=== PATIENT | female | born 1945 | race Caucasian/White ===

== ENCOUNTER 2022-06-13 23:19 | Observation (INO) | payer MEDICARE, SELFPAY ==
[2022-06-13 23:24] VITALS: BMI 41.9
--- NOTE | 2022-06-13 23:26 | PC.NURSE ---
PT ARRIVED TO FLOOR VIA STRETCHER @ [id number]
[2022-06-14] VITALS (7 sets, daily range): BP systolic 114–186; BP diastolic 67–95; PULSE 60–90; RESP 16–18; TEMP 36.6–37; O2SAT 95–99
[2022-06-14 01:26] LABS: Coronavirus 19, PCR Not Detected (NotDetected); Influenza A, PCR Not Detected (NotDetected); Influenza B, PCR Not Detected (NotDetected)
--- NOTE | 2022-06-14 05:38 | PC.NURSE ---
PT WAS A DIRECT ADMIT FROM [facility] FOR NSTEMI/SYNCOPAL EPISODE. PT IS ALERT AND ORIENTED X 4. MONITORING PT VIA TELE - NSR W/ BBB. PT HAS HAD NO COMPLAINTS SINCE ARRIVAL. PT HAS BEEN RESTING WELL. PT HAS BEEN NPO SINCE MIDNIGHT IN CASE OF CONSULT. CALL LIGHT IN REACH.
[2022-06-14 07:59] LABS: Basophils # 0.1 K/mm3 (0-0.2); Basophils % 1.1 % (0.1-2.0); Eosinophils # 0.1 K/mm3 (0.0-0.4); Eosinophils % 2.2 % (0.1-12.0); Lymphocytes # 1.6 K/mm3 (0.7-4.5); Lymphocytes % 31.7 % (10-50); Mean Corpuscular HGB Conc 32.5 g/dL (31.8-35.4); Mean Corpuscular Hemoglobin 32.7 pg (27.0-31.2); Mean Corpuscular Volume 100.8 fl (81-99); Mean Platelet Volume 7.6 fl (7.4-10.4); Monocytes # 0.3 K/mm3 (0.1-1.0); Monocytes % 6.7 % (1.7-9.3); Neutrophils # 2.9 K/mm3 (1.8-7.8); Neutrophils % 58.4 % (37.0-80.0); Platelet Count 186 K/mm3 (142-424); Red Blood Count 3.97 M/mm3 (4.20-5.40); Red Cell Distribution Width 13.2 % (11.5-17.5)
[2022-06-14 08:03] LABS: Anion Gap 9.8 mEq/L (5-15); Blood Urea Nitrogen 10 mg/dl (7-17); Carbon Dioxide 25 mmol/L (22.0-30.0); Chloride 105 mmol/L (98-107); Creatinine Clearance Estimated 42 mL/min (50-200); Potassium 3.8 mmoL/L (3.5-5.1); Sodium 136 mmol/L (136-145)
[2022-06-14 08:04] LABS: Calcium 9.7 mg/dl (8.4-10.2); Chol/HDL Ratio 3.8 (1-3.5); Cholesterol 210 mg/dl (140-200); Estimated Glomerular Filt Rate 69 ml/min (>60); GFR (African American) 84 ML/MIN (>60); Glucose 107 mg/dl (74-100); HDL Cholesterol 56 mg/dl (40-60); Magnesium 1.8 mg/dl (1.6-2.3); Triglycerides 110 mg/dl (30-150); VLDL Cholesterol 22 mg/dL (0-40)
--- NOTE | 2022-06-14 08:40 | P.CONPHA_ITS ---
[facility] Pharmacy VTE Monitoring - Patient Demographics Admission date: 06/14/22 Report Date: 06/14/22 Time: 08:40 Allergies/Adverse Reactions: Patient Allergies ciprofloxacin Allergy (Verified 06/14/22 00:37) Height: 1.65 m Weight: 114.39 kg - VTE Risk Labs: VTE Related Lab Results Hgb 13.0 g/dL (12.2-16.2) 06/14/22 07:28 Hct 40.0 % (37.0-47.0) 06/14/22 07:28 Plt Count 186 K/mm3 (142-424) 06/14/22 07:28 BUN 10 mg/dl (7-17) 06/14/22 07:28 Creatinine 0.80 mg/dl (0.52-1.04) 06/14/22 07:28 Estimated Creat Clear 42 mL/min (50-200) 06/14/22 07:28 Was VTE Risk Assessment Performed: Yes VTE Score: 7 VTE Risk Level: Moderate Risk Clinical Trial Participant: No - Prophylaxis VTE Prophylaxis Ordered?: Yes Types of VTE Prophylaxis: TEDS Knee High
--- NOTE | 2022-06-14 08:43 | HMH.PHAINT ---
home medication list verified using list from outpatient pharmacy
--- NOTE | 2022-06-14 09:43 | HMH.HP ---
*Admission Date: 06/14/22 *Chief complaint: syncope *History of present illness: this patient had acute syncopal episode and was seen at [facility] and noted to have elevated card enz -and was transferred to [facility] for eval and treatment -pt record at [facility] ed was reviewed - pt reports sudden syncopal episode with diaphoresis and no def chest pain or recent illness but has hx of htn and ht dis and noted to have nonstemi and was transfered to [facility] for eval and treatment - [facility] History I have reviewed the patient's past medical history: Yes Medical History: Reports:: Coronary Artery Disease, Hypertension Denies:: Cancer, Diabetes Mellitus Type 1, Diabetes Mellitus Type 2, MRSA *Have you ever received a pneumonia vaccine?: No *Have you received a flu vaccine this season?: No Other Medical History: Reports: Anemia, Cataracts Laterality Cases: Bilateral: Cataract Other Surgeries: Yes: Hysterectomy-Total Amputation: No Fractures: No - *Social History Last grade of school completed: Advanced degree Smoking Status: Former smoker Alcohol Intake: never *Occupational Status:: retired Household Members: children *Travel in the last 8 weeks: None Family Hx:: Cancer, Hypertension, Stroke Review of Systems - Review of Systems Review of systems:: pertinent systems reviewed and negative unless documented below - Constitutional Denies fever(s) - Eyes Denies change in vision - ENT Denies sore throat - *Cardiovascular Reports other (syncope), Denies chest pain at rest - *Respiratory Denies cough - *Gastrointestinal Denies abdominal pain - *Genitourinary Denies blood in urine - *Musculoskeletal Denies joint pain - Integumentary/Breasts Denies rash - *Neurologic Denies seizure-like activity - Psychiatric Reports anxiety Meds Home Medications Medication Instructions Recorded Confirmed Type Apixaban [Eliquis 5mg tab] 5 mg PO BID 06/14/22 06/14/22 History carvediloL [Carvedilol 12.5mg Tab] 12.5 mg PO BID 06/14/22 06/14/22 History cloNIDine HCL [cloNIDine 0.1mg 0.1 mg PO DAILY PRN 06/14/22 06/14/22 History Tablet] clonazePAM [Klonopin 0.5mg tablet] 0.5 mg PO TIDP PRN 06/14/22 06/14/22 History hydroCHLOROthiazide 12.5 mg PO DAILY 06/14/22 06/14/22 History [Hydrochlorothiazide 12.5mg Tab] lisinopriL [Lisinopril] 20 mg PO DAILY 06/14/22 06/14/22 History Allergies Allergy/AdvReac Type Severity Reaction Status Date / Time ciprofloxacin Allergy Verified 06/14/22 00:37 Exam Vital signs and Labs for Last 24 Hours: Temp Pulse Resp BP Pulse Ox 98.2 F 90 16 167/90 H 97 06/14/22 08:00 06/14/22 08:00 06/14/22 08:00 06/14/22 08:00 06/14/22 08:00 Laboratory Results - last 24 hr 06/14/22 00:33: SARS-CoV-2 (PCR) Not detected, Influenza A Untype (PCR) Not detected, Influenza Type B (PCR) Not detected 06/14/22 07:28: WBC 5.0, RBC 3.97 L, Hgb 13.0, Hct 40.0, MCV 100.8 H, MCH 32.7 H, MCHC 32.5, RDW 13.2, Plt Count 186, MPV 7.6, Neut % (Auto) 58.4, Lymph % (Auto) 31.7, Wharton % (Auto) 6.7, Eos % (Auto) 2.2, Baso % (Auto) 1.1, Neut # (Auto) 2.9, Lymph # (Auto) 1.6, Wharton # (Auto) 0.3, Eos # (Auto) 0.1, Baso # (Auto) 0.1 06/14/22 07:28: Sodium 136, Potassium 3.8, Chloride 105, Carbon Dioxide 25, Anion Gap 9.8, BUN 10, Creatinine 0.80, Estimated Creat Clear 42, Estimated GFR 69, Est GFR ( Amer) 84, Glucose 107 H, Calcium 9.7, Magnesium 1.8, Triglycerides 110, Cholesterol 210 H, LDL Cholesterol Direct 100.50, VLDL Cholesterol 22, HDL Cholesterol 56, Cholesterol/HDL Ratio 3.8 H I & O for Last 24 hours: Intake & Output 06/11/22 06/12/22 06/13/22 06/14/22 11:59 11:59 11:59 11:59 Output Total 0 / 0 Balance 0 / 0 Weight 252 lb 3 oz - Constitutional no acute distress, obese - *Routine HEENT Exam Head: Present: normocephalic Eye: Present: EOMI, PERRL ENT: Present: mucous membranes dry - *Routine Neck Exam Absent: JVD - *Routine Respiratory Exam Present: decreased breath
--- NOTE | 2022-06-14 14:15 | PC.NURSE ---
Rounded on pt, cleaned and straightened room. Pt asleep at this time, ice water provided.
[2022-06-15] VITALS (19 sets, daily range): BP systolic 107–166; BP diastolic 55–116; PULSE 51–80; RESP 16–18; TEMP 36.4–37; O2SAT 97–99; BMI 42.5
--- NOTE | 2022-06-15 | IR_ITS ---
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 COMPLICATIONS None Estimated Blood Loss: Less than 10 ML TECHNIQUE One percent lidocaine was used to anesthetize the right groin. The right femoral artery was accessed via the Seldinger technique. A 4-Andorran sheath was placed in the right femoral artery. The JL-4 and JR-4 catheter was also used to perform left heart catheterization left ventriculogram and selective coronary angiogram. At the end the diagnostic angiogram therapeutic heparin was administered giving a therapeutic ACT and the 4 Andorran sheath was exchanged for a 6 Andorran sheath. A JR4 guide catheter was placed in left main artery followed by a BMW wire placed distally in the LAD. A 2.5 x 26 mm resolute Yaya stent was placed proximal to the first septal occupational health nurse manager yet immediately distal to the first diagonal artery and then deployed at 16 francesco reducing the severe stenosis to 0%. JOSHUA-3 flow was present before and after the procedure. Patient had malignant hypertension with known coronary artery disease therefore the suspicion of renal artery stenosis being present was high. The JR4 guide catheter was used to perform bilateral selective renal angiography. At the end of this procedure the BMW wire was placed distally in the right coronary artery and a 6 mm x 18 mm Herculink stent was deployed at 14 francesco reducing the severe stenosis to 0%. Excellent angiographic results were obtained. At the end of the procedure the apparatus was removed the groin is reprepped closure change sheath was removed good hemostasis was achieved using Perclose device patient was transferred to the postop putting in stable condition ANGIOGRAPHIC RESULTS The left main artery Normal The left anterior descending artery Has a 10% eccentric stenosis in the very proximal segment. Immediately adjacent to the first septal occupational health nurse manager but after the first diagonal artery is a long eccentric 70 to 80% stenosis The circumflex artery Nondominant with mild 10% luminal irregularities The right coronary artery Is a dominant vessel and has proximal to mid vessel multiple 20 to 30% stenoses with distal 20% and 30% stenosis The STEARNS ventriculogram reveals Normal 65% The left ventricular end-diastolic pressure 20 mmHg Left renal artery singular normal Right renal artery singular with an ostial proximal 70% tubular stenosis IMPRESSION Severe single-vessel coronary artery disease as described above Successful stenting the proximal to mid LAD severe disease reduced to 0% with 1 drug-eluting stent Normal ejection fraction with mildly elevated LVEDP consistent with diastolic dysfunction secondary to hypertensive heart disease Severe right renal artery stenosis producing renovascular hypertension and contributing to the coronary disease and hypertensive heart disease Successful stenting of a severely stenosed right renal artery severe disease reduced to 0% with 1 bare-metal stent PLAN 1. Plavix 75 daily plus aspirin 81 mg daily 2. LDL less than 55 to be achieved with high intensity statin 3. Avoidance of tobacco products 4. Risk factor modification 5. Cardiac rehabilitation [employer]
--- NOTE | 2022-06-15 04:15 | PC.NURSE ---
Pt is alert and oriented x4, tele showing NSR. HR 70s. O2 sat >95% on room air. Pt has been resting through the night and has had no complaints. Pt is independent in her room.
--- NOTE | 2022-06-15 09:54 | HMH.CNCARD ---
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 Patient reports stood up and took a few steps yesterday when got light headed and next thing awoke on the floor. Denies prior chest pain. Of note, patient states she hadn't ate yesterday. Upon presentation to ER patient had elevated trops (80.5-109.4) and EKG was SR with LBBB. Patient was transferred to [facility] for cardiology consult for NSTEMI. Denies chest pain or soa. Sees Dr. Rod at . [facility] History Medical History: Reports:: Coronary Artery Disease, Hypertension, Pulmonary Embolism Denies:: Cancer, Diabetes Mellitus Type 1, Diabetes Mellitus Type 2, MRSA *Have you ever received a pneumonia vaccine?: No *Have you received a flu vaccine this season?: No Other Medical History: Reports: Anemia, Cataracts Laterality Cases: Bilateral: Cataract Other Surgeries: Yes: Hysterectomy-Total Amputation: No Fractures: No - *Social History Last grade of school completed: Advanced degree Smoking Status: Former smoker Alcohol Intake: never *Occupational Status:: retired Household Members: children *Travel in the last 8 weeks: None Family Hx:: Cancer, Hypertension, Stroke Meds Home Medications Medication Instructions Recorded Confirmed Type Apixaban [Eliquis 5mg tab] 5 mg PO BID 06/14/22 06/14/22 History carvediloL [Carvedilol 12.5mg Tab] 12.5 mg PO BID 06/14/22 06/14/22 History cloNIDine HCL [cloNIDine 0.1mg 0.1 mg PO DAILY PRN 06/14/22 06/14/22 History Tablet] clonazePAM [Klonopin 0.5mg tablet] 0.5 mg PO TIDP PRN 06/14/22 06/14/22 History hydroCHLOROthiazide 12.5 mg PO DAILY 06/14/22 06/14/22 History [Hydrochlorothiazide 12.5mg Tab] lisinopriL [Lisinopril] 20 mg PO DAILY 06/14/22 06/14/22 History Allergies Allergy/AdvReac Type Severity Reaction Status Date / Time ciprofloxacin Allergy Verified 06/14/22 00:37 Exam Vital signs and Labs for Last 24 Hours: Temp Pulse Resp BP Pulse Ox 97.9 F 78 16 166/89 H 97 06/15/22 08:00 06/15/22 08:00 06/15/22 08:00 06/15/22 08:00 06/15/22 08:00 I & O for Last 24 hours: Intake & Output 06/12/22 06/13/22 06/14/22 06/15/22 23:59 23:59 23:59 23:59 Intake Total 960 / 960 Output Total 200 / 200 0 / 0 Balance 760 / 760 0 / 0 Weight 252 lb 3 oz 255 lb 7 oz - Constitutional no acute distress, morbidly obese - *Routine Respiratory Exam Present: CTA bilaterally - *Routine Cardiovascular Exam Present: RRR Comments: EKG-SR with premature supraventricular contractions, LBBB - *Routine Extremities Exam Absent: cyanosis, clubbing, edema - *Routine Neurological Exam Present: alert, oriented X3 Review of Systems - *Cardiovascular Denies chest pain, Denies shortness of breath - *Respiratory Denies shortness of breath - *Neurologic Denies seizure-like activity Assessment and Plan (1) Non-STEMI (non-ST elevated myocardial infarction) Status: Acute Category: Medical Code(s): I21.4 - Non-ST elevation (NSTEMI) myocardial infarction (2) Left bundle branch block (LBBB) Status: Acute Category: Medical Code(s): I44.7 - Left bundle-branch block, unspecified (3) Anxiety Status: Acute Category: Medical Code(s): F41.9 - Anxiety disorder, unspecified (4) History of DVT of lower extremity Status: Acute Category: Medical Code(s): Z86.718 - Personal history of other venous thrombosis and embolism (5) HTN (hypertension) Status: Acute Qualifiers: Hypertension type: primary hypertension Qualified Code(s): I10 - Essential (primary) hype
--- NOTE | 2022-06-15 10:20 | CA_ITS ---
APPROVED REPORT EXAM: Comprehensive 2D, Doppler, and color-flow Echocardiogram Chip Drier: Tami Jade CRT Ht: 5 ft 4 in Wt: 255lbs BSA: 2.17 BP: 167/90 mmHg Indications: HTN, syncope, obesity, Hx takotsubo syndrome, LBBB, DVT hx 2D Dimensions LVOT 1.79 cm (M/F) 1.5-2.5 LA Volume 33.10 mL LA Volume Index 15.30 mL/m2 (M/F) 16-34 M-Mode Dimensions RVDd 3.17 cm (0.9-2.6) LA Diam 3.33 cm (1.9-4.0) LVDd 3.85 cm (3.5-5.7) Ao Diam 3.91 cm (2.0-3.7) LVDs 2.33 cm (3.5-5.7) IVSd 2.37 cm (0.6-1.1) PWd 0.80 cm (0.6-1.1) EF (Teich) 70.70% FS 39.50% EDV (Teich) 63.90 mL TAPSE 2.42 (<1.7) ESV (Teich) 18.70 mL LV Diastology E Decel Time 320.00 (160-240 msec) E/A Ratio 0.61 MED E' 7.80 (< 7 cm/sec) MED A' 8.40 cm/s E'/MED E' Ratio 7.08 (>14) LAT E' 5.10 (<10 cm/sec) LAT A' 8.90 cm/s E/LAT E' Ratio 10.82 (>14) Aortic Valve AI PHT 382.00 ms AO Peak GR. 6.70 mmHg Mitral Valve MV E Max Juanjose. 55.00 (40-130 cm/s) MV A Velocity 90.00 (40-130 cm/s) E/A Ratio 0.61 MV Decel. Time 320.00 (160-240 ms) MV PHT 94.00 ms Pulmonary Valve PV Peak Velocity 134.00 (50-150 cm/s) Tricuspid Valve TR P. Velocity 285.00 cm/s RAP Estimate 10.00 mmHg RVSP 42.50 mmHg Left Ventricle Technically difficult study because of the patient factors and poor acoustic windows. Left atrium is mildly enlarged, left ventricle is normal size mild concentric left ventricular hypertrophy, estimated ejection fraction 50% with no regional wall motion abnormality, grade 1 diastolic dysfunction seen without tissue Doppler evidence of raise left atrial pressure. Right Ventricle Right atrium and right ventricle are mildly enlarged with normal contractility. Aortic Valve Aortic valve is minimally thickened and fibrosed there is no aortic stenosis or aortic insufficiency. Mitral Valve Mitral valve leaflets are minimally thickened, there is mild mitral regurgitation. Tricuspid Valve Tricuspid valve is grossly normal, there is mild tricuspid regurgitation, calculated right ventricular systolic pressure is 41mmHg. Pulmonic Valve Pulmonic valve is poorly visualized. Great Vessels Aortic root is normal size. Inferior vena cava is poorly visualized. Pericardium No significant pericardial effusion noted. Conclusion 1. Technically very difficult study because of the patient factors and poor acoustic windows, biatrial enlargement, normal left ventricular size, mild concentric left ventricular hypertrophy, estimated ejection fraction 50% with no regional wall motion abnormality, grade 1 diastolic dysfunction seen without tissue Doppler evidence of raise left atrial pressure. 2. Mild mitral and tricuspid regurgitation. 3. Infrequent pericardial effusion noted. 4. Inferior vena cava is poorly visualized. Electronically signed by : Joe Mcdaniel MD 06/15/2022 17:52:52
--- NOTE | 2022-06-15 15:36 | HMH.DCSUM ---
General - General Admission date:: 06/13/22 Discharge date: 06/15/22 HPI HPI: this patient had acute syncopal episode and was seen at [facility] and noted to have elevated card enz -and was transferred to [facility] for eval and treatment -pt record at [facility] ed was reviewed - pt reports sudden syncopal episode with diaphoresis and no def chest pain or recent illness but has hx of htn and ht dis and noted to have nonstemi and was transfered to [facility] for eval and treatment - Hospital Course Hospital Course: pt was admitted and was seen by card -76 year old female with past medical hx of 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 Patient reports stood up and took a few steps yesterday when got light headed and next thing awoke on the floor. Denies prior chest pain. Of note, patient states she hadn't ate yesterday. Upon presentation to ER patient had elevated trops (80.5-109.4) and EKG was SR with LBBB. Patient was transferred to [facility] for cardiology consult for NSTEMI. Denies chest pain or soa. Sees Dr. Rod at . [facility] -Elevated trop and LBBB- plan for LHC today -Discussed risks vs. benefits of LHC with patient and sons, all are agreeable. Syncope -If LHC normal, may consider event monitor at dc home. -Hx of PE. Denies chest pain or soa. States has been compliant with home eliquis. -If symptoms persist, may consider CTA of chest Prior DVT and PE -Resume home Eliquis after LHC Hx of Takotsubo cardiomyopathy 2017 -Echo -continue Coreg 12.5 BID HTN -Continue Coreg 12.5 BID, HCTZ 12.5 QD, and Lisinopril 20mg QD HC summary: ANGIOGRAPHIC RESULTS The left main artery Normal The left anterior descending artery Has a 10% eccentric stenosis in the very proximal segment. Immediately adjacent to the first septal piper helper but after the first diagonal artery is a long eccentric 70 to 80% stenosis The circumflex artery Nondominant with mild 10% luminal irregularities The right coronary artery Is a dominant vessel and has proximal to mid vessel multiple 20 to 30% stenoses with distal 20% and 30% stenosis The STEARNS ventriculogram reveals Normal 65% The left ventricular end-diastolic pressure 20 mmHg Left renal artery singular normal Right renal artery singular with an ostial proximal 70% tubular stenosis IMPRESSION Severe single-vessel coronary artery disease as described above Successful stenting the proximal to mid LAD severe disease reduced to 0% with 1 drug-eluting stent Normal ejection fraction with mildly elevated LVEDP consistent with diastolic dysfunction secondary to hypertensive heart disease Severe right renal artery stenosis producing renovascular hypertension and contributing to the coronary disease and hypertensive heart disease Successful stenting of a severely stenosed right renal artery severe disease reduced to 0% with 1 bare-metal stent PLAN 1. Plavix 75 daily plus aspirin 81 mg daily 2. LDL less than 55 to be achieved with high intensity statin 3. Avoidance of tobacco products 4. Risk factor modification 5. Cardiac rehabilitation CV summary: DC home tonight, continue home meds with addition of plavix 75mg QD, aspirin 81mg QD, and crestor 40mg QD. Follow up in office in 1 week. C home meds please: Meds Eliquis 5mg BID Coreg 12.5 BID HCTZ 12.5 QD Lisinopril 20mg QD Crestor 40mg QD Plavix 75mg QD Aspirin 81mg pt was stable and will follow up with pcp and card - Objective Vital signs: Temp Pulse Resp BP Pulse Ox 97.9 F 57 L 16 149/97 H 97 06/15/22 08:00 06/15/22 13:50 06/15/22 13:50 06/15/22 13:50 06/15/22 13:50 no acute distress, obese - *Routine HEENT Exam Head: Present: normocephalic Eye: Present: EOMI, PERRL ENT: Present: mucous membranes dry - *Routine Neck Exam Present: supple - *Routine Respiratory Exam Present: CTA bilaterally - *Routine Ca
--- NOTE | 2022-06-15 16:13 | PC.NURSE ---
Addendum entered by Matilda Tang RN 06/15/22 16:59: dr. castro is also aware patient bp has had a response to treatment from 160s systolic to 99-120 at lowest Original Note: patient blood pressure has had good response since return to floor. did speak with [facility]lab who stated this was okay at this time, monitor bp and educate patient on monitoring at home. since now that patient has open renal artery may not need as much home blood pressure meds.
--- NOTE | 2022-06-15 16:27 | HMH.PHACLD ---
Amberly Rodriguez has received discharge medication counseling on the following medications: PATIENT IS CURRENTLY TAKING CARVEDILOL 12.5 MG BID AND LISINOPRIL 20 MG DAILY. MD ADDING ASPIRIN 81 MG DAILY, LIPITOR 40 MG HS, AND PLAVIX 75 MG DAILY.
--- NOTE | 2022-06-15 18:18 | PC.NURSE ---
awaiting on patient son to go over discharge. did note some oozing from cath site. patient does state she feels a little off after the anesthesia, and with a lower bp.
--- NOTE | 2022-06-15 19:44 | PC.NURSE ---
pt. discharged off floor at this time
--- NOTE | 2022-06-15 20:07 | PC.NURSE ---
extensive teaching with patient and son on appointments, post cath care, when to call doc or return to er, monitoring of bp at home, new medications, femoral site care, stents and placement/cards. appointments given to patient. vocalizes understanding. some serisang to gauze pad, but small amounts.
--- NOTE | 2022-06-16 16:01 | CARE MANAGER ---
Patient returned phone call. Patient had some nervousness today, but is feeling better. She picked up her medications and is aware of her MD appointments. She denies any other questions or concerns at this time. ANTON Villa
[2022-06-17 09:34] LABS: CATHL Activated Clotting Time 274 SEC (74-125)
== END 2022-06-15 19:44 | disposition home or self-care (01) ==
PROVIDERS: Internal Medicine; Admitting Provider Emergency Medicine; PCP Family Medicine; Visit Provider Emergency Medicine
DX: I21.4 Non-ST elevation (NSTEMI) myocardial infarction (principal); I70.1 Atherosclerosis of renal artery; I77.1 Stricture of artery; I25.10 Atherosclerotic heart disease of native coronary artery without angina pectoris; I10 Essential (primary) hypertension; Z79.899 Other long term (current) drug therapy; I44.7 Left bundle-branch block, unspecified; Z86.718 Personal history of other venous thrombosis and embolism; E66.01 Morbid (severe) obesity due to excess calories; Z68.41 Body mass index [BMI] 40.0-44.9, adult; Z86.16 Personal history of COVID-19; I51.81 Takotsubo syndrome; Z79.01 Long term (current) use of anticoagulants; Z79.02 Long term (current) use of antithrombotics/antiplatelets; Z20.822 Contact with and (suspected) exposure to COVID-19
CPT/HCPCS: G0378; 36415; 37236; 80048; 80061; 83735; 85025; 85347; 92928; 93306; 93458; 99152; 99153; C1725; C1760; C1769; C1876; C9600; C9803; J1644; Q9967; U0003; U0005

== ENCOUNTER → 2022-06-22 16:22 | Outpatient (CLI) | payer MEDICARE, SELFPAY ==
[2022-06-22 17:06] LABS: Basophils % 0.4 % (0.1-2.0); Eosinophils # 0.1 K/mm3 (0.0-0.4); Eosinophils % 2.3 % (0.1-12.0); Hematocrit 30.9 % (37.0-47.0); Hemoglobin 10.5 g/dL (12.2-16.2); Lymphocytes # 1.4 K/mm3 (0.7-4.5); Lymphocytes % 25.6 % (10-50); Mean Corpuscular HGB Conc 34.1 g/dL (31.8-35.4); Mean Corpuscular Hemoglobin 33.1 pg (27.0-31.2); Mean Platelet Volume 7.6 fl (7.4-10.4); Monocytes # 0.3 K/mm3 (0.1-1.0); Monocytes % 6.1 % (1.7-9.3); Neutrophils # 3.5 K/mm3 (1.8-7.8); Neutrophils % 65.7 % (37.0-80.0); Platelet Count 234 K/mm3 (142-424); Red Blood Count 3.18 M/mm3 (4.20-5.40); Red Cell Distribution Width 13.5 % (11.5-17.5); White Blood Count 5.4 K/mm3 (4.8-10.8)
[2022-06-22 17:32] LABS: Anion Gap 8.5 mEq/L (5-15); Blood Urea Nitrogen 21 mg/dl (7-17); Calcium 9.9 mg/dl (8.4-10.2); Carbon Dioxide 30 mmol/L (22.0-30.0); Chloride 106 mmol/L (98-107); Estimated Glomerular Filt Rate 54 ml/min (>60); GFR (African American) 65 ML/MIN (>60); Glucose 147 mg/dl (74-100); Potassium 4.5 mmoL/L (3.5-5.1); Sodium 140 mmol/L (136-145)
== END ==
PROVIDERS: PCP Family Medicine; Visit Provider Internal Medicine
DX: E66.9 Obesity, unspecified (principal); I10 Essential (primary) hypertension; I25.10 Atherosclerotic heart disease of native coronary artery without angina pectoris; I51.81 Takotsubo syndrome; R94.30 Abnormal result of cardiovascular function study, unspecified; Z86.718 Personal history of other venous thrombosis and embolism; I21.4 Non-ST elevation (NSTEMI) myocardial infarction; Z68.41 Body mass index [BMI] 40.0-44.9, adult
CPT/HCPCS: 80048; 85025

== ENCOUNTER → 2022-06-30 10:48 | Outpatient (CLI) | payer MEDICARE, SELFPAY ==
--- NOTE | 2022-06-30 10:52 | CA_ITS ---
FINAL REPORT TECHNIQUE: Color Doppler, duplex Doppler and compression sonography of the right lower extremity venous system was performed. CLINICAL HISTORY: edema in RLE, pain in RLE FINDINGS: There is no evidence of deep venous thrombosis from the level of the groin to the calf. The veins are patent and compressible. IMPRESSION: No evidence of deep venous thrombosis right lower extremity. Reviewed, Interpreted and Dictated by Chapin Cervantes III, MD Transcribed by Ginger Ruiz Authenticated and [facility]
== END ==
PROVIDERS: PCP Family Medicine; Visit Provider Nurse Practitioner
DX: M79.661 Pain in right lower leg (principal); R60.0 Localized edema; T14.8XXA Other injury of unspecified body region, initial encounter; Z86.718 Personal history of other venous thrombosis and embolism
CPT/HCPCS: 93971

== ENCOUNTER 2022-07-16 14:08 | Outpatient (RCR) | payer MEDICARE, SELFPAY | END 2022-08-05 15:00 | disposition home or self-care (01) | LOC: PT 14:08 | PROVIDERS: Visit Provider Nurse Practitioner | DX: I25.118 Atherosclerotic heart disease of native coronary artery with other forms of angina pectoris (principal); Z95.5 Presence of coronary angioplasty implant and graft ==

== ENCOUNTER 2022-08-05 15:14 | Emergency (ER) | payer MEDICARE, SELFPAY ==
[2022-08-05] VITALS (9 sets, daily range): BP systolic 121–235; BP diastolic 54–136; PULSE 56–85; RESP 16–20; TEMP 36.6–36.8; O2SAT 96–99; BMI 40.7
--- NOTE | 2022-08-05 15:32 | PC.NURSE ---
LAB CALLED GLUCOSE IS 466 AWARE
--- NOTE | 2022-08-05 16:02 | XR_ITS ---
FINAL REPORT CLINICAL HISTORY: chest pain FINDINGS: SINGLE-VIEW CHEST The heart size is normal. The mediastinum is normal. The lungs are clear. There is no pneumothorax. IMPRESSION: No acute cardiopulmonary process. Reviewed, Interpreted and Dictated by Chapin Cervantes III, MD Transcribed by Petrona Reynolds Authenticated and [facility]
--- NOTE | 2022-08-05 16:02 | ECG_ITS ---
APPROVED REPORT Exam: Resting ECG HR:65 bpm ECG Measurements Heart Rate 65 AXES ID 163 P -26 QRSd 111 QRS -15 QT 397 T 22 QTc 408 Conclusion SINUS RHYTHM LOW QRS VOLTAGE IN PRECORDIAL LEADS [QRS DEFLECTION < 1.0 mV IN CHEST LEADS] PATTERN CONSISTENT WITH PULMONARY DISEASE MODERATE INTRAVENTRICULAR CONDUCTION DELAY [110+ ms QRS DURATION] ABNORMAL ECG UNCONFIRMED REPORT Electronically signed by : Earnest Melara MD 08/06/2022 14:46:51
--- NOTE | 2022-08-05 16:03 | HMH.EDGENADL ---
Discharge Plan Disposition Patient Disposition: Home, Self-Care Condition: Good Chief Complaint: Recheck/Abnormal Lab/Rx Prescriptions Prescriptions: No Action clopidogrel 75 MG tablet 75 mg PO DAILY aspirin 81 MG tablet,delayed release (DR/EC) 81 mg PO DAILY atorvastatin 40 MG tablet 40 mg PO HS clonazepam 0.5 MG tablet 0.5 mg PO TIDP PRN (Reason: Anxiety) carvedilol 12.5 MG tablet 12.5 mg PO BID lisinopril 20 MG tablet 20 mg PO DAILY hydrochlorothiazide 12.5 MG tablet 12.5 mg PO DAILY apixaban 5 MG tablets,dose pack 5 mg PO BID Referrals Follow up/Referrals: Tayla Jeter [Primary Care Provider] - See instructions Activity Restrictions/Add. Instructions Additional Instructions/Restrictions: You have been evaluated for elevated blood pressure. Please start taking it 25 mg carvedilol twice daily (rather than 12.5mg). Please monitor your symptoms closely. Follow-up with cardiology, Dr. Self. You may need outpatient ultrasound of the renal arteries. Return to the emergency department at once for any new or worsening symptoms, chest pain, palpitations, dizziness, lightheadedness, any other concerns. Clinical Impressions Clinical Impression: Elevated blood pressure reading Discharge ED Provider: Vania Patel Adult HPI General Chief complaint: Recheck/Abnormal Lab/Rx Stated complaint: High BP Time Seen by Provider: 08/05/22 16:03 Mode of Arrival: Ambulatory Source of Information: Patient Limitations: No Limitations History of Present Illness HPI narrative: 76-year-old female presenting to the emergency department with elevated blood pressure readings. At home, for the last 3 to 4 days her blood pressure has been persistently elevated. Initial blood pressure was around 160 systolic. Today when she checked her blood pressure it was 200 systolic. She has not felt bad. Specifically, denies any chest pain, shortness of breath, headache, dizziness. She has a history of renal stent and hypertension. She follows with cardiology, Dr. Self. Is taking carvedilol and lisinopril as prescribed. She had COVID-19 in November of last year. Had blood clots, currently takes Eliquis. Denies chest pain or difficulty breathing. Related Data Home Medications Medication Instructions Recorded Confirmed apixaban 5 mg (74 tabs) tablets in 5 mg PO BID Blood thinner 06/14/22 08/05/22 a dose pack carvedilol 12.5 mg tablet 12.5 mg PO BID High blood pressure 06/14/22 08/05/22 clonazepam 0.5 mg tablet 0.5 mg PO TIDP PRN Anxiety 06/14/22 08/05/22 hydrochlorothiazide 12.5 mg tablet 12.5 mg PO DAILY Hypertension 06/14/22 08/05/22 lisinopril 20 mg tablet 20 mg PO DAILY Hypertension 06/14/22 08/05/22 aspirin 81 mg tablet,delayed 81 mg PO DAILY Blood thinner 08/05/22 08/05/22 release atorvastatin 40 mg tablet 40 mg PO HS Cholesterol 08/05/22 08/05/22 clopidogrel 75 mg tablet 75 mg PO DAILY Blood thinner 08/05/22 08/05/22 Allergies Allergy/AdvReac Type Severity Reaction Status Date / Time ciprofloxacin Allergy Verified 08/05/22 14:59 [facility] Medical History (Updated 08/05/22 @ 18:48 by Vania Patel DO) Anxiety Bruising CAD (coronary artery disease) Diastolic dysfunction Edema of right lower extremity Elevated left ventricular end-diastolic pressure (LVEDP) History of DVT of lower extremity HTN (hypertension) Hyperlipidemia Left bundle branch block (LBBB) Non-STEMI (non-ST elevated myocardial infarction) Pain in right lower leg Renal artery stenosis Takotsubo cardiomyopathy Social History Smoking Status: Never smoker alcohol intake: never current occupational status: retired Travel in the last 8 weeks: Inside the [place] household members: children ROS Obtained: Yes All systems reviewed & no additional complaints except as documented Constitutional Constitutional: Agnieszka
--- NOTE | 2022-08-05 16:17 | PC.NURSE ---
XR AT BEDSIDE
--- NOTE | 2022-08-05 16:24 | PC.NURSE ---
PT TO BR TO PROVIDE URINE SPECIMEN
[2022-08-05 16:34] LABS: Microscopic, Urine URINE MICROSCOPIC (MICROSCOPIC)
--- NOTE | 2022-08-05 16:41 | PC.NURSE ---
talking with about pt poc
[2022-08-05 16:42] LABS: Appearance,Urine CLEAR (Clear); Bilirubin,Urine Negative (Negative); Blood, Urine Negative (Negative); Color,Urine YELLOW (Yellow); Glucose,Urine (UA) Negative (Negative); Ketones,Urine Negative (Negative); Leukocyte Esterase,Urine Negative (Negative); Nitrate,Urine Negative (Negative); Protein,Urine Negative (Negative); Urobilinogen,Urine 0.2 EU/dl (0.2)
[2022-08-05 16:50] LABS: Basophils % 0.9 % (0.1-2.0); Eosinophils # 0.1 K/mm3 (0.0-0.4); Eosinophils % 2.2 % (0.1-12.0); Hematocrit 37.5 % (37.0-47.0); Hemoglobin 11.8 g/dL (12.2-16.2); Lymphocytes # 1.3 K/mm3 (0.7-4.5); Lymphocytes % 29.9 % (10-50); Mean Corpuscular HGB Conc 31.4 g/dL (31.8-35.4); Mean Corpuscular Hemoglobin 32.1 pg (27.0-31.2); Mean Corpuscular Volume 102.2 fl (81-99); Monocytes # 0.2 K/mm3 (0.1-1.0); Monocytes % 5.2 % (1.7-9.3); Neutrophils # 2.8 K/mm3 (1.8-7.8); Neutrophils % 61.8 % (37.0-80.0); Platelet Count 228 K/mm3 (142-424); Red Blood Count 3.67 M/mm3 (4.20-5.40); Red Cell Distribution Width 13.6 % (11.5-17.5); White Blood Count 4.5 K/mm3 (4.8-10.8)
[2022-08-05 16:50] LABS: Coronavirus 19, PCR Not Detected (NotDetected); Influenza A, PCR Not Detected (NotDetected); Influenza B, PCR Not Detected (NotDetected)
[2022-08-05 16:56] LABS: Alanine Aminotransferase 20 U/L (12-78); Albumin Level 4.2 g/dl (3.5-5.0); Albumin/Globulin Ratio 1.5 (1.1-1.8); Alkaline Phosphatase 75 U/L (38-126); Anion Gap 11.4 mEq/L (5-15); Aspartate Amino Transferase 30 U/L (14-36); Bilirubin,Total 0.4 mg/dl (0.2-1.3); Blood Urea Nitrogen 14 mg/dl (7-17); Calcium 9.5 mg/dl (8.4-10.2); Carbon Dioxide 28 mmol/L (22.0-30.0); Chloride 103 mmol/L (98-107); Creatinine Clearance Estimated 81 mL/min (50-200); Estimated Glomerular Filt Rate 61 ml/min (>60); GFR (African American) 73 ML/MIN (>60); Globulin 2.8 g/dL (1.3-3.2); Glucose 140 mg/dl (74-100); Potassium 4.4 mmoL/L (3.5-5.1); Sodium 138 mmol/L (136-145)
[2022-08-05 17:07] LABS: Squamous Epithelial Cell,Urine Occasional #/hpf (0-5); WBC,Urine Occasional #/hpf (0-3)
[2022-08-05 17:13] LABS: Troponin I < 0.01 ng/ml (0.00-0.034)
--- NOTE | 2022-08-05 18:10 | PC.NURSE ---
PT RESTING WITH EYES CLOSED, AWAKENS EASILY. NO NEEDS VOICED. FAMILY AT BEDSIDE
== END 2022-08-05 19:10 | disposition home or self-care (01) ==
PROVIDERS: Emergency Provider Emergency Medicine; PCP Family Medicine
DX: R03.0 Elevated blood-pressure reading, without diagnosis of hypertension (principal); Z79.82 Long term (current) use of aspirin; Z79.899 Other long term (current) drug therapy; Z88.1 Allergy status to other antibiotic agents; F41.9 Anxiety disorder, unspecified; I25.10 Atherosclerotic heart disease of native coronary artery without angina pectoris; I10 Essential (primary) hypertension; E78.5 Hyperlipidemia, unspecified; Z86.79 Personal history of other diseases of the circulatory system; I44.7 Left bundle-branch block, unspecified; I42.8 Other cardiomyopathies; Z86.718 Personal history of other venous thrombosis and embolism
CPT/HCPCS: 71045; 80053; 81001; 84484; 85025; 93005; 99284; C9803; U0003; U0005

== ENCOUNTER 2023-01-12 13:02 | Observation (INO) | payer MEDICARE, SELFPAY ==
[2023-01-12 13:52] VITALS: BP 222/100; PULSE 64; RESP 21; TEMP 36.6; O2SAT 99; BMI 42.4
--- NOTE | 2023-01-12 14:27 | HMH.PHAINT1 ---
Pharmacy Intervention Comments: Medication reconciliation completed using external fill history and patient interview
[2023-01-12 14:58] LABS: Coronavirus 19, PCR Not Detected (NotDetected); Influenza A, PCR Not Detected (NotDetected); Influenza B, PCR Not Detected (NotDetected)
--- NOTE | 2023-01-12 15:03 | EXP.CARD.CON ---
History of Present Illness History of Present Illness Consult date: 01/12/23 Requesting physician: Jovanny Hawk Consult reason: hypertension Chief complaint: htn ER follow up Additional Medical History:: Significant past medical history Hypertension Coronary artery disease Diastolic dysfunction History of DVT and PE on Eliquis Renal artery stenosis-stent to right CA 2021 Hx of Takotsubo cardiomyopathy [facility] from 05/2022 IMPRESSION Severe single-vessel coronary artery disease as described above Successful stenting the proximal to mid LAD severe disease reduced to 0% with 1 drug-eluting stent Normal ejection fraction with mildly elevated LVEDP consistent with diastolic dysfunction secondary to hypertensive heart disease Severe right renal artery stenosis producing renovascular hypertension and contributing to the coronary disease and hypertensive heart disease Successful stenting of a severely stenosed right renal artery severe disease reduced to 0% with 1 bare-metal stent PLAN 1. Plavix 75 daily plus aspirin 81 mg daily 2. LDL less than 55 to be achieved with high intensity statin 3. Avoidance of tobacco products 4. Risk factor modification 5. Cardiac rehabilitation History of present illness: 77 year old white female presented to cardiology office with complaint of elevated BP over the last few weeks. Patient reports systolic BP has been > 150 for the past few weeks. Last night BP continued to elevated prompting her to go to [facility] ER for further eval. Patient was advised to follow up with Dr. Self today. Reports has been taking medication as directed. Denies chest pain, soa, dizziness, or vision changes. Patient was directly admitted for htn control and to undergo renal artery angiogram tomorrow morning as patient has hx of renal artery stenosis. See Dr. Self's office note below. Patient here for er visit/elevated BP BP has been running high 207/140 Denies cp & pressure Denies SOB Denies Dizziness & lightheadedness Denies Swelling Denies numbness Denies Fatigue CAD is present and likley stable. AKILA to LAD. DAPT with ASA and Plavix. BP elevated, Patient weight up 1 lb LDL goal is < 55. LDL 100 April 2022- on statin Hx of DVT and PE on eliquis-denies bleeding JESS is present.Stenting to right renal.(2021) Offered hospital admission, she is agreeable. She needs renal angiogram due to malignant htn. PLAN: Admit to hospitalist service. Renal angiogram tomorrow, RTC after hosp discharge. [facility] Disclaimer: The information contained in this section may have been updated after the patient was seen, as this information can be updated by other users. Medical History (Updated 01/12/23 @ 15:06 by Crystal Pepper APRN) Anxiety Bruising CAD (coronary artery disease) Diastolic dysfunction Edema of right lower extremity Elevated left ventricular end-diastolic pressure (LVEDP) History of DVT of lower extremity HTN (hypertension) Hyperlipidemia Left bundle branch block (LBBB) Non-STEMI (non-ST elevated myocardial infarction) Pain in right lower leg Renal artery stenosis Takotsubo cardiomyopathy Takotsubo cardiomyopathy Social History Smoking Status: Never smoker alcohol intake: never current occupational status: retired Travel in the last 8 weeks: [place] the [place] household members: children Review of Systems Review of Systems Review of systems:: pertinent systems reviewed and negative unless documented below Constitutional Constitutional: Reports system reviewed and no additional complaints, except as documented Eyes Eyes: Reports system reviewed and no additional complaints, except as documented ENT Ears, Nose, Mouth, and Throat: Reports system reviewed and no additional complaints, except as documented *Cardiovascular Cardiovascular: Reports system reviewed and no additional complaints, except as documented *Respiratory Respirator
--- NOTE | 2023-01-12 16:26 | EXP.HP ---
History of Present Illness *Admission Date: 01/12/23 *Reason for visit:: Chief complaint: Uncontrolled blood pressure *History of present illness: This is a 77-year-old female that presented to her manager critical care unit office today for concerns of elevated blood pressure. A blood pressure of 220/100 was identified and she was admitted for hypertensive urgency. The patient reports no crescendo headaches, visual disturbances, chest pains or palpitations. She reports no confusion, falls or syncope. She denies dysarthria or sudden loss in motor or sensory function. Her past medical history significant for hypertension, coronary disease with left heart cath and AKILA May 2022, DVT with PE during COVID, renal artery stenosis status post stent deployment 2021 and heart failure with preserved ejection fraction. She reports compliance with her medications for blood pressure. Her fill rate at her local pharmacy was reviewed identifying that she has not had her Plavix, Lipitor or aspirin filled since July 16, 2022. [facility] Medical History (Updated 01/12/23 @ 16:35 by Jovanny Hawk MD) CAD (coronary artery disease) Chronically on benzodiazepine therapy Diastolic dysfunction Elevated left ventricular end-diastolic pressure (LVEDP) Generalized anxiety disorder History of DVT of lower extremity HTN (hypertension) Hyperlipidemia Left bundle branch block (LBBB) Non-STEMI (non-ST elevated myocardial infarction) Renal artery stenosis Takotsubo cardiomyopathy Surgical History (Updated 01/12/23 @ 16:35 by Jovanny Hawk MD) History of left heart catheterization Family History (Updated 01/12/23 @ 16:36 by Jovanny Hawk MD) Mother Hypertension Father Throat cancer Hypertension Social History Smoking Status: Never smoker alcohol intake: never current occupational status: retired Travel in the last 8 weeks: [place] the [place] household members: children Review of Systems Review of Systems Review of systems:: pertinent systems reviewed and negative unless documented below Constitutional Constitutional: Denies frequent falls Eyes Eyes: Denies change in vision *Cardiovascular Cardiovascular: Denies chest pain, Denies dyspnea and Denies palpitations *Respiratory Respiratory: Denies dyspnea and Denies pain on inspiration *Neurologic Neurologic: Reports system reviewed and no additional complaints, except as documented, Denies abnormal speech, Denies confusion, Denies localized weakness, Denies frequent falls, Denies other visual disturbances and Denies sensory deficit Psychiatric Psychiatric: Denies confusion Endocrine Endocrine: Denies palpitations Meds Home Medications and Allergies Home Medications Medication Instructions Recorded Confirmed Type apixaban 5 mg (74 tabs) tablets in 5 mg PO BID Blood thinner 06/14/22 01/12/23 History a dose pack carvedilol 12.5 mg tablet 12.5 mg PO BID High blood pressure 06/14/22 01/12/23 History clonazepam 0.5 mg tablet 0.5 mg PO TIDP PRN Anxiety 06/14/22 01/12/23 History aspirin 81 mg tablet,delayed 81 mg PO DAILY heart health 08/05/22 01/12/23 History release lisinopril 20 mg tablet 20 mg PO BID Hypertension 01/12/23 01/12/23 History New Prescriptions to Start Prescriptions: Allergies Allergy/AdvReac Type Severity Reaction Status Date / Time ciprofloxacin Allergy Verified 01/12/23 11:37 Exam Data for Last 24 hours Vital signs and Labs for Last 24 Hours: Temp Pulse Resp BP Pulse Ox 97.8 F 64 21 222/100 H 99 01/12/23 13:52 01/12/23 13:52 01/12/23 13:52 01/12/23 13:52 01/12/23 13:52 Laboratory Results - last 24 hr 01/12/23 14:10: SARS-CoV-2 (PCR) Not detected, Influenza A Untype (PCR) Not detected, Influenza Type B (PCR) Not detected I & O for Last 24 hours: Intake & Output 01/09/23 01/10/23 01/11/23 01/12/23 23:59 23:59 23:59 23:59 Output Total 0 / 0 B
[2023-01-12 16:40] LABS: Basophils % 0.6 % (0.1-2.0); Eosinophils # 0.1 K/mm3 (0.0-0.4); Eosinophils % 1.6 % (0.1-12.0); Hematocrit 39.5 % (37.0-47.0); Hemoglobin 13.3 g/dL (12.2-16.2); Lymphocytes # 1.5 K/mm3 (0.7-4.5); Lymphocytes % 26.1 % (10-50); Mean Corpuscular HGB Conc 33.6 g/dL (31.8-35.4); Mean Corpuscular Volume 95.1 fl (81-99); Mean Platelet Volume 8.1 fl (7.4-10.4); Monocytes # 0.3 K/mm3 (0.1-1.0); Neutrophils # 3.7 K/mm3 (1.8-7.8); Neutrophils % 66.7 % (37.0-80.0); Platelet Count 212 K/mm3 (142-424); Red Blood Count 4.16 M/mm3 (4.20-5.40); White Blood Count 5.6 K/mm3 (4.8-10.8)
[2023-01-12 16:43] LABS: Alanine Aminotransferase 17 U/L (12-78); Albumin Level 4.6 g/dl (3.5-5.0); Albumin/Globulin Ratio 1.5 (1.1-1.8); Alkaline Phosphatase 76 U/L (38-126); Aspartate Amino Transferase 29 U/L (14-36); Bilirubin,Total 0.6 mg/dl (0.2-1.3); Blood Urea Nitrogen 12 mg/dl (7-17); Calcium 9.5 mg/dl (8.4-10.2); Carbon Dioxide 31 mmol/L (22.0-30.0); Chloride 105 mmol/L (98-107); Chol/HDL Ratio 4.3 (1-3.5); Cholesterol 238 mg/dl (140-200); Creatinine Clearance Estimated 37 mL/min (50-200); Estimated Glomerular Filt Rate 48 ml/min (>60); GFR (African American) 58 ML/MIN (>60); Glucose 113 mg/dl (74-100); HDL Cholesterol 56 mg/dl (40-60); INR 0.97 (0.9-1.1); Magnesium 2.1 mg/dl (1.6-2.3); Prothrombin Time 10.5 seconds (10.1-12.5); Sodium 141 mmol/L (136-145); Total Protein,Serum 7.6 g/dl (6.3-8.2); Triglycerides 172 mg/dl (30-150); VLDL Cholesterol 34 mg/dL (0-40)
[2023-01-12 16:54] LABS: Direct LDL Cholesterol 111.99 mg/dL (100-129)
[2023-01-12 18:00] VITALS: BP 194/90; PULSE 68; RESP 20; TEMP 36.6; O2SAT 97
--- NOTE | 2023-01-12 18:27 | PC.NURSE ---
pt alert x 4, no issues, lungs clear, pt up as malcolm. pts b/p has been elevated since arriving to floor, treated with meds, slight decrease in b/p since meds. aware. per eric, restart pts klonopin. pt has home meds, locked in drawer.
--- NOTE | 2023-01-12 19:32 | ECG_ITS ---
APPROVED REPORT Exam: Resting ECG HR:63 bpm ECG Measurements Heart Rate 63 AXES NH 167 P 47 QRSd 117 QRS -31 QT 407 T 34 QTc 414 Conclusion SINUS RHYTHM LEFT AXIS DEVIATION [QRS AXIS < -30] iNCOPLETE RBBB ABNORMAL ECG UNCONFIRMED REPORT Electronically signed by : Earnest Melara MD 01/13/2023 08:55:30
[2023-01-12 20:00] VITALS: BP 189/86; PULSE 66; RESP 16; TEMP 36.8; O2SAT 97
--- NOTE | 2023-01-12 22:14 | PC.NURSE ---
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
[2023-01-13] VITALS: BP 114/62; BP 185/85; PULSE 58; RESP 20; O2SAT 97
[2023-01-13 04:00] VITALS: BP 116/62; PULSE 65; RESP 16; TEMP 36.8; O2SAT 96; BMI 42.2
--- NOTE | 2023-01-13 05:34 | PC.NURSE ---
pt alert and oriented x4, skin pwd, 1+ swelling noted to left ankle are in which pt states has been like that since tendon injury, pt normotensive at 4am vitals 116/62; no acute distress, no other issues or concerns at this time, pt remains npo for renal angio, consents obtained with return verbal understanding
--- NOTE | 2023-01-13 07:11 | EXP.PN ---
Subjective *Date: 01/13/23 *Time: 07:11 Interval history: Date of service January 13, 2023 The patient reports no acute events overnight. Nursing staff report that she remains afebrile with stable vital signs and improved blood pressures. She is saturating appropriately on room air. She is pleased with her blood pressure response to her current treatment recommendations. Her echo and morning labs are pending. Exam Data for Last 24 hours Vital signs and Labs for Last 24 Hours: Temp Pulse Resp BP Pulse Ox 98.2 F 65 16 116/62 96 01/13/23 04:00 01/13/23 04:00 01/13/23 04:00 01/13/23 04:00 01/13/23 04:00 Laboratory Results - last 24 hr 01/12/23 14:03: WBC 5.6, RBC 4.16 L, Hgb 13.3, Hct 39.5, MCV 95.1, MCH 32.0 H, MCHC 33.6, RDW 14.0, Plt Count 212, MPV 8.1, Neut % (Auto) 66.7, Lymph % (Auto) 26.1, [place] % (Auto) 5.0, Eos % (Auto) 1.6, Baso % (Auto) 0.6, Neut # (Auto) 3.7, Lymph # (Auto) 1.5, Armstrong # (Auto) 0.3, Eos # (Auto) 0.1, Baso # (Auto) 0.0 01/12/23 14:03: PT 10.5, INR 0.97 01/12/23 14:03: Sodium 141, Potassium 4.0, Chloride 105, Carbon Dioxide 31 H, Anion Gap 9.0, BUN 12, Creatinine 1.10 H, Estimated Creat Clear 37, Estimated GFR 48 L, Est GFR ( Amer) 58 L, Glucose 113 H, Calcium 9.5, Magnesium 2.1, Total Bilirubin 0.6, AST 29, ALT 17, Alkaline Phosphatase 76, Total Protein 7.6, Albumin 4.6, Globulin 3.0, Albumin/Globulin Ratio 1.5, Triglycerides 172 H, Cholesterol 238 H, LDL Cholesterol Direct 111.99, VLDL Cholesterol 34, HDL Cholesterol 56, Cholesterol/HDL Ratio 4.3 H 01/12/23 14:10: SARS-CoV-2 (PCR) Not detected, Influenza A Untype (PCR) Not detected, Influenza Type B (PCR) Not detected I & O for Last 24 hours: Intake & Output 01/10/23 01/11/23 01/12/23 01/13/23 23:59 23:59 23:59 23:59 Intake Total 360 / 360 Output Total 0 / 0 0 / 0 Balance 360 / 360 0 / 0 Weight 115.666 kg 114.986 kg Constitutional Constitutional: no acute distress, morbidly obese and cooperative *Routine HEENT Exam Head: Present normocephalic Eye: Present EOMI and PERRL ENT: Present mucous membranes moist *Routine Neck Exam Neck: Present supple and trachea midline; Absent lymphadenopathy *Routine Respiratory Exam Respiratory: Present CTA bilaterally, normal respiratory effort and symmetric chest movement *Routine Cardiovascular Exam Cardiovascular: Present RRR *Routine Abdominal Exam Abdominal: Present soft and normoactive bowel sounds; Absent tenderness *Routine Extremities Exam Extremities: Absent cyanosis, clubbing or edema *Routine Skin Exam Skin: Present warm; Absent rash *Routine Neurological Exam Neurological: Present alert, oriented X3, moving all extremities, vision grossly intact, hearing grossly intact and normal speech; Absent sensory deficit or motor deficit Routine Psychiatric Exam Psychiatric: Present normal affect, normal thought process, cooperative, good insight and good judgment Assessment and Plan *Assessment and plan (1) Hypertensive urgency: Status: Acute Category: Medical Code(s): I16.0 - Hypertensive urgency (2) CAD (coronary artery disease): Status: Acute Qualifiers: Coronary Disease-Associated Artery/Lesion type: [place] artery [place] vs. transplanted heart: [place] heart Associated angina: with other forms of angina Qualified Code(s): I25.118 - Atherosclerotic heart disease of [place] coronary artery with other forms of angina pectoris Category: Medical Code(s): I25.10 - Atherosclerotic heart disease of [place] coronary artery without angina pectoris (3) Renal artery stenosis: Status: Acute Category: Medical Code(s): I70.1 - Atherosclerosis of renal artery (4) Hx of pulmonary embolus: Status: Acute Category: Medical Code(s): Z86.711 - Personal history of pulmonary embolism (5) Generalized anxiety disorder: Status: Acute Category: Medical Code(s): F41.1 - Generalized anxi
[2023-01-13 07:16] VITALS: BP 166/63; PULSE 65; RESP 18; TEMP 37; O2SAT 96
--- NOTE | 2023-01-13 07:37 | EXP.CARD.PN ---
Subjective Subjective Date: 01/13/23 Time: 08:00 Principal diagnosis: malig. htn Interval history: Patient resting, BP has continued to improve. Home meds reviewed, no refill on Plavix, Lipitor or aspirin since July 16, 2022. Patient's labs reviewed, creatinine 1.10 this am. Exam Data for Last 24 hours Vital signs and Labs for Last 24 Hours: Temp Pulse Resp BP Pulse Ox 98.6 F 65 18 166/63 H 96 01/13/23 07:16 01/13/23 07:16 01/13/23 07:16 01/13/23 07:16 01/13/23 07:16 Laboratory Results - last 24 hr 01/12/23 14:03: WBC 5.6, RBC 4.16 L, Hgb 13.3, Hct 39.5, MCV 95.1, MCH 32.0 H, MCHC 33.6, RDW 14.0, Plt Count 212, MPV 8.1, Neut % (Auto) 66.7, Lymph % (Auto) 26.1, [place] % (Auto) 5.0, Eos % (Auto) 1.6, Baso % (Auto) 0.6, Neut # (Auto) 3.7, Lymph # (Auto) 1.5, [place] # (Auto) 0.3, Eos # (Auto) 0.1, Baso # (Auto) 0.0 01/12/23 14:03: PT 10.5, INR 0.97 01/12/23 14:03: Sodium 141, Potassium 4.0, Chloride 105, Carbon Dioxide 31 H, Anion Gap 9.0, BUN 12, Creatinine 1.10 H, Estimated Creat Clear 37, Estimated GFR 48 L, Est GFR ( Amer) 58 L, Glucose 113 H, Calcium 9.5, Magnesium 2.1, Total Bilirubin 0.6, AST 29, ALT 17, Alkaline Phosphatase 76, Total Protein 7.6, Albumin 4.6, Globulin 3.0, Albumin/Globulin Ratio 1.5, Triglycerides 172 H, Cholesterol 238 H, LDL Cholesterol Direct 111.99, VLDL Cholesterol 34, HDL Cholesterol 56, Cholesterol/HDL Ratio 4.3 H 01/12/23 14:10: SARS-CoV-2 (PCR) Not detected, Influenza A Untype (PCR) Not detected, Influenza Type B (PCR) Not detected I & O for Last 24 hours: Intake & Output 01/10/23 01/11/23 01/12/23 01/13/23 23:59 23:59 23:59 23:59 Intake Total 360 / 360 0 / 0 Output Total 0 / 0 0 / 0 Balance 360 / 360 0 / 0 Weight 255 lb 253 lb 8 oz Constitutional Constitutional: no acute distress *Routine Respiratory Exam Respiratory: Present CTA bilaterally and symmetric chest movement *Routine Cardiovascular Exam Cardiovascular: Present RRR, Normal S1 and Normal S2 *Routine Abdominal Exam Abdominal: Present soft and normoactive bowel sounds; Absent tenderness *Routine Extremities Exam Extremities: Present full ROM and normal capillary refill; Absent edema *Routine Skin Exam Skin: Present intact, dry and warm Detailed Neck Exam: Thyroids Thyroid: Absent bruit Progress Note: A&P Assessment and plan (1) Hypertensive urgency: Status: Acute (2) CAD (coronary artery disease): Status: Acute (3) Renal artery stenosis: Status: Acute (4) Hx of pulmonary embolus: Status: Acute (5) Generalized anxiety disorder: Status: Acute (6) Chronically on benzodiazepine therapy: Status: Acute Assessment and Plan Assessment and Plan for All Diagnoses:: Malignant hypertension -Patient admitted for BP control with plan for renal angiogram tomorrow -Continue carvedilol 12.5mg po BID, HCTZ 25mg po daily, lisinopril 40mg po daily, and norvasc 10mg po daily. 01/13/2023- Greatly improved with above medications. Will hold on renal angiogram as BP has improved with medication. Hx of renal artery stenosis -stenting to right renal artery 2021 -Of note, medication refills reviewed, no refill on plavix, aspirin, or statin since June 2022. Coronary artery disease -AKILA to LAD 2021 -Need to resume DAPT with plavix and aspirin History of Provoked DVT and PE -Previous provoked dvt and pe after covid. Will get cta of chest today to r/o pe, if negative will stop eliquis and resume plavix and aspirin. Hyperlipidemia -LDL goal is < 55. LDL was 100 in 2021. restart lipitor 40mg po daily. CV summary: BP greatly improved with adjustment of home meds. No renal angiogram at this time. will get cta of chest and if negative for PE, stop eliquis and resume Plavix and aspirin. patient needs to be back on statin as well. If CTA negative, patient is CV stable for dc home with below listed meds. Please have patient follow up in office in 1 week. CV meds Carvedilol 12
--- NOTE | 2023-01-13 08:29 | CT_ITS ---
FINAL REPORT TECHNIQUE: Axial imaging of the chest is obtained after the administration of contrast. 3-D MIP reformatted images were also obtained and reviewed per PE protocol. CLINICAL HISTORY: PE FINDINGS: The pulmonary arteries are well filled. There is no evidence of pulmonary embolus. There is no aortic dissection or intimal flap. The ascending aorta measures up to 4 cm. The heart is borderline in size. There is a high right paratracheal lymph node measuring 15 mm. There is no other mediastinal, hilar, or axillary lymphadenopathy. There is a less than 5 mm left upper lobe nodule on image 37. On image 22 in the right upper lobe is a 5 mm new nodule. There is a 5 mm right middle lobe nodule on image 38. There are bilateral areas of linear atelectasis. There is no pleural or pericardial effusion. Limited evaluation of the upper abdomen demonstrates a 1 cm left renal lesion that is not a simple cyst. Small solid lesion cannot be excluded. There are additional bilateral hypodense renal lesions. There is no acute osseous abnormality. IMPRESSION: No evidence of pulmonary embolism or aortic dissection. 4 cm ascending aorta. Three bilateral subcentimeter pulmonary nodules. Recommend six-month follow-up. Bilateral renal lesions. At least 1 lesion is not a simple cyst. Recommend renal mass protocol CT on a non emergent basis. Reviewed, Interpreted and Dictated by Dianne Aguirre MD Transcribed by Samuel Ramsay Authenticated and [facility]
[2023-01-13 11:00] VITALS: BP 157/75; PULSE 64; RESP 18; TEMP 36.9; O2SAT 98
--- NOTE | 2023-01-13 11:08 | PC.NURSE ---
verified with tabatha mendez that patient would not be having renal angiogram and was okay to eat
--- NOTE | 2023-01-13 13:38 | EXP.DC.SUM ---
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 A blood pressure of 220/100 was identified and she was admitted for hypertensive urgency. The patient reports no crescendo headaches, visual disturbances, chest pains or palpitations. She reports no confusion, falls or syncope. She denies dysarthria or sudden loss in motor or sensory function. Her past medical history significant for hypertension, coronary disease with left heart cath and AKILA May 2022, DVT with PE during COVID, renal artery stenosis status post stent deployment 2021 and heart failure with preserved ejection fraction. She reports compliance with her medications for blood pressure. Her fill rate at her local pharmacy was reviewed identifying that she has not had her Plavix, Lipitor or aspirin filled since July 16, 2022. Hospital Course Hospital Course Hospital Course: The patient was admitted to the medical floor with telemetry and pulse oximetry monitoring. Cardiology was consulted. Pharmacy assisted with her home medication review and identified concerns with refill rates. Her home medications plus cardiology recommended BP intervention identified improved blood pressure readings. Her blood pressure gently corrected and remained stable. Initial recommendations for aortogram with renal studies was deferred with improved blood pressures. Her laboratory studies and inflammatory markers were trended and identified stability. A CTA of the chest identified no pulmonary embolus but did identify a 4 cm ascending aorta, pulmonary nodules and a 1 cm left renal lesion. Radiology recommended a follow-up renal mass protocol CT on a non-emergent basis. Her echocardiogram identified an ejection fraction of 55% with LVH and grade 1 diastolic dysfunction, her RVSP is 40 mmHg. The patient identified improvement and inquired about discharge home. On day of discharge the patient is accompanied by her 2 daughters who live close to her. A copy of the CTA of the chest was given to the patient to take to her family doctor who is in [facility]. We recommended follow-up imaging as recommended by radiology. We have recommended routine blood pressure monitoring and we reviewed her discharge medications. We have stressed the importance of medication compliance. She will follow-up with her PCP in 1 week and we recommend a follow-up basic metabolic profile to check on her creatinine and electrolytes. Exam Data for Last 24 hours Vital signs and Labs for Last 24 Hours: Temp Pulse Resp BP Pulse Ox 98.5 F 64 18 157/75 H 98 01/13/23 11:00 01/13/23 11:00 01/13/23 11:00 01/13/23 11:00 01/13/23 11:00 Laboratory Results - last 24 hr 01/12/23 14:03: WBC 5.6, RBC 4.16 L, Hgb 13.3, Hct 39.5, MCV 95.1, MCH 32.0 H, MCHC 33.6, RDW 14.0, Plt Count 212, MPV 8.1, Neut % (Auto) 66.7, Lymph % (Auto) 26.1, Chase % (Auto) 5.0, Eos % (Auto) 1.6, Baso % (Auto) 0.6, Neut # (Auto) 3.7, Lymph # (Auto) 1.5, Chase # (Auto) 0.3, Eos # (Auto) 0.1, Baso # (Auto) 0.0 01/12/23 14:03: PT 10.5, INR 0.97 01/12/23 14:03: Sodium 141, Potassium 4.0, Chloride 105, Carbon Dioxide 31 H, Anion Gap 9.0, BUN 12, Creatinine 1.10 H, Estimated Creat Clear 37, Estimated GFR 48 L, Est GFR ( Amer) 58 L, Glucose 113 H, Calcium 9.5, Magnesium 2.1, Total Bilirubin 0.6, AST 29, ALT 17, Alkaline Phosphatase 76, Total Protein 7.6, Albumin 4.6, Globulin 3.0, Albumin/Globulin Ratio 1.5, Triglycerides 172 H, Cholesterol 238 H, LDL Cholesterol Direct 111.99, VLDL Cholesterol 34, HDL Cholesterol 56, Cholesterol/HDL Ratio 4.3 H 01/12/23 14:10: SARS-CoV-2 (PCR) Not detected, Influenza A Untype (PCR) Not detected, Influenza Type B (PCR) Not detected I & O for Last 24 hours: Intake & Output 01/10/23 01/11/23 01/12/23 01/13/23 23:59 23:59 23:59 23:59 Intake Total 360 / 360 480 / 480 Output
--- NOTE | 2023-01-13 13:59 | HMH.PHAINT1 ---
Pharmacy Intervention Comments: Discussed discharge medications with patient. Patient verbalized understanding and had no questions at this time.
--- NOTE | 2023-01-13 14:10 | DIET.NUTRFU ---
Patient declined cardiac diet information. She was agreed to continue current cardiac diet and took dinner order but at home she says she needs salt but tries not to add a lot of extra salt.
--- NOTE | 2023-01-13 16:16 | CA_ITS ---
APPROVED REPORT EXAM: Comprehensive 2D, Doppler, and color-flow Echocardiogram Construction Economist: Patsy Aponte RDCS Ht: 5 ft 5 in Wt: 255lbs BSA: 2.19 BP: 116/62 mmHg Indications: HTN,CAD 2D Dimensions LVOT 2.44 cm (M/F) 1.5-2.5 M-Mode Dimensions RVDd 2.97 cm (0.9-2.6) LA Diam 3.59 cm (1.9-4.0) LVDd 4.38 cm (3.5-5.7) Ao Diam 3.19 cm (2.0-3.7) LVDs 2.73 cm (3.5-5.7) IVSd 1.00 cm (0.6-1.1) PWd 1.12 cm (0.6-1.1) EF (Teich) 68.00% FS 37.70% EDV (Teich) 86.80 mL ESV (Teich) 27.80 mL LV Diastology E Decel Time 220.00 (160-240 msec) E/A Ratio 0.7 MED E' 8.30 (< 7 cm/sec) E'/MED E' Ratio 6.08 (>14) LAT E' 7.20 (<10 cm/sec) E/LAT E' Ratio 7.01 (>14) Mitral Valve MV E Max Juanjose. 50.00 (40-130 cm/s) MV A Velocity 69.00 (40-130 cm/s) E/A Ratio 0.73 MV Decel. Time 220.00 (160-240 ms) MV PHT 64.00 ms Tricuspid Valve TR P. Velocity 277.00 cm/s RAP Estimate 10.00 mmHg RVSP 40.70 mmHg Left Ventricle Left atrium is mildly enlarged, left ventricle is normal size mild concentric left ventricular hypertrophy, estimated ejection fraction 55% with no regional wall motion abnormality, grade 1 diastolic dysfunction seen without tissue Doppler evidence of raise left atrial pressure. Right Ventricle Right atrium and right ventricle are mildly enlarged with normal contractility. Aortic Valve Aortic valve is minimally thickened and fibrosed there is no aortic stenosis or aortic insufficiency. Mitral Valve Mitral valve is grossly normal, there is mild mitral regurgitation. Tricuspid Valve Tricuspid grossly normal, there is mild tricuspid regurgitation, calculated right ventricular systolic pressure is 40 mmHg. Pulmonic Valve Pulmonic valve is poorly visualized. Great Vessels Aortic root is normal size. Inferior vena cava is poorly visualized. Pericardium No significant pericardial effusion noted. Conclusion 1. Mild biatrial enlargement, normal left ventricular size, mild concentric left ventricular hypertrophy, estimated ejection fraction 55% with no regional wall motion abnormality, grade 1 diastolic dysfunction seen without tissue Doppler evidence of late left atrial pressure. 2. Mildly enlarged right ventricle with normal contractility. 3. Mild mitral and tricuspid regurgitation, calculated right ventricular systolic pressure 40 mmHg. 4. No significant pericardial effusion noted. 5. Inferior vena cava is poorly visualized. Electronically signed by : Joe Mcdaniel MD 01/13/2023 12:38:30
--- NOTE | 2023-01-14 11:15 | CARE MANAGER ---
Spoke with patient related to hospital discharge. Patient picked up all her medications and denies any questions or concerns. She is aware of follow up appointment. ANTON Villa
== END 2023-01-13 14:40 | disposition home or self-care (01) ==
PROVIDERS: Admitting Provider Family Medicine; Visit Provider Family Medicine
DX: I70.1 Atherosclerosis of renal artery (principal); I16.0 Hypertensive urgency; I10 Essential (primary) hypertension; I25.118 Atherosclerotic heart disease of native coronary artery with other forms of angina pectoris; E78.2 Mixed hyperlipidemia; F41.1 Generalized anxiety disorder; Z79.899 Other long term (current) drug therapy; Z95.828 Presence of other vascular implants and grafts; Z86.718 Personal history of other venous thrombosis and embolism; Z86.711 Personal history of pulmonary embolism
CPT/HCPCS: G0378; G0379; 71275; 80053; 80061; 83735; 85025; 85610; 93005; 93306; C9803; Q9967; U0003; U0005

== ENCOUNTER 2025-11-07 16:24 | Observation (INO) | payer MEDICARE, SELFPAY ==
[2025-11-07] VITALS (10 sets, daily range): BP systolic 140–234; BP diastolic 72–119; PULSE 73–97; RESP 18–22; TEMP 36.3–36.8; O2SAT 96–98; BMI 43.2; BMI 42.6
--- NOTE | 2025-11-07 17:29 | ECG_ITS ---
APPROVED REPORT Exam: Resting ECG HR:82 bpm ECG Measurements Heart Rate 82 AXES QRSd 148 QRS -56 QT 395 T 121 QTc 434 Conclusion Normal sinus rhythm Left axis Left bundle branch block Negative Sgarbossa Electronically signed by : Elfego Du, 11/08/2025 23:19:58
--- NOTE | 2025-11-07 17:29 | ED_ITS ---
<Statement entered by Elfego Du DO - 11/08/25 00:16> I was consulted by the SAV, and we discussed the complexity of problems being addressed. I approved the treatment and management plan for this patient's care in the emergency department, thus performing a substantive portion of the medical decision making. Elfego Du DO Discharge Plan Disposition Patient Disposition: Admitted Condition: Good Clinical Impressions Clinical Impression: Pre-syncope, Hypertensive emergency Discharge ED Provider: Elfego Du General Adult HPI General Chief complaint: Weakness Stated complaint: lightheaded with dizziness Time Seen by Provider: 11/07/25 17:15 Mode of Arrival: Ambulatory Source of Information: Patient and Relative Description of Symptoms (Recalled from ER Triage Doc. by RN): pt has been feeling light headed and weak. was in the [facility] and felt like she was going to pass out. has a hx of a n-stemi History of Present Illness HPI narrative: 79-year-old female presents the emergency department for a presyncopal episode that happened around 2 PM today, patient states that she was at the checkout line at [facility] , when she started feeling flushed lightheaded, felt like she was about to pass out, but did not. Went home, took some of her anxiety medication hoping that this would alleviate her symptomatology, however when she was sitting in a chair she experienced a similar episode, this prompted emergency department visit. At this time patient denies any fever chills cough congestion chest pain shortness of breath, denies any presyncopal symptomatology no vertiginous type symptomatology, no lightheadedness or dizziness at this time, denies any nausea abdominal pain constipation diarrhea no urinary symptomatology, patient is non-smoker denies any alcohol or drug use, other past medical history consistent with coronary artery disease status post 1 stent placement, MARY KATE/MDD, hyperlipidemia, hypertension, known LBBB, obesity, GERD, renal artery stenosis with what sounds like renal artery stent placement. Initial triage vitals noted for hypertension over 200 systolic blood pressure otherwise unremarkable Please note that above description of symptoms, in this electronic medical record under categorization of recalled from ER triage doctor by RN are reflective of an initial nursing assessment, however, is not reflective of my full history and physical exam that was personally taken and clarified. Consequentially, this preceding description of symptoms, which may include the patient's categorized chief complaint in the EMR, do not reflect my personal clinical impression, and the ultimate description of history of present illness and patient stated complaints should be deferred to this section of the note. Unless stated otherwise or congruent with this section of the note, additional signs, symptoms, or incongruence should be interpreted as inaccurate with my clinical impression. Onset (ago): hour(s) Related Data Home Medications ?Medication ?Instructions ?Recorded ?Confirmed clonazepam 0.5 mg tablet 0.5 mg PO TIDP PRN Anxiety 0 06/14/22 10/25/23 Previous Rx's ?Medication ?Instructions ?Recorded amlodipine 5 mg tablet 5 mg PO DAILY #30 tabs 01/13 aspirin 81 mg tablet,delayed 81 mg PO DAILY heart heal th #30 01/13/23 release tabs atorvastatin 40 mg tablet 40 mg PO HS #30 tabs 3 carvedilol 12.5 mg tablet 12.5 mg PO BID High blood pr essure 01/13/23 #60 tabs clopidogrel 75 mg tablet 75 mg PO DAILY #30 tabs 12/30 04/20 lisinopril 20 mg tablet 20 mg PO BID Hypertension #6 0 tabs 01/13/23 pantoprazole 40 mg tablet,delayed 40 mg PO DAILY #30 t abs 01/13/23 release furosemide 20 mg tablet (Lasix) 20 mg PO DAILY #30 tab s 01/18/23 Allergies Allergy/AdvReac Type Severity Reaction Status Date / Time ciprofloxacin Allergy Verified 10/25/23 14:01 [facility] Disclaimer: The information contained in this section may have been updated after the patient was seen, as this information can be updated by other users. Medical History CAD (coronary artery disease) Chronically on benzodiazepine therapy Diastolic dysfunction Elevated left ventricular end-diastolic pressure (LVEDP) Generalized anxiety disorder History of DVT of lower extremity HTN (hypertension) Hyperlipidemia Left bundle branch block (LBBB) Renal artery stenosis Takotsubo cardiomyopathy Surgical History History of left heart catheterization Family History Mother Hypertension Father Throat cancer Hypertension Social History Smoking Status: Never smoker alcohol intake: never current occupational status: retired Travel in the last 8 weeks?: Inside the [place] household members: children Have you lived/traveled outside US in past 30 days?: No Contact w/someone who lives/traveled outside US past 30 days?: No Exposure to someone with infectious disease in past 14 days?: No Do you have a fever (greater than 100.4 F or 38 C)?: No Have you tested positive for COVID-19?: No Exposed to someone with COVID-19 in past 14 days?: No Do you have a sore throat?: No Do you have a cough?: No Do you have any weakness?: No Do you have any diarrhea?: No Are you experiencing any unusual bleeding?: No Do you have any muscle aches/pain?: No Do you have any abdominal pain?: No Are you experiencing loss of taste or smell?: No Other Medical History Have you received the Flu Vaccine for this season: No Have you received the Pneumonia Vaccine: No ROS Obtained: Yes All systems reviewed & no additional complaints except as documented Physical Exam General General appearance: alert and in no apparent distress Head Head exam: atraumatic and normocephalic Eye Eye exam: Present PERRL, EOMI and other (No horizontal or vertical nystagmus is noted per my exam) ENT ENT exam: Present mucous membranes moist Neck Neck exam: Present normal inspection Chest Chest inspection: Present normal inspection and symmetric chest wall rise Respiratory Respiratory exam: Present normal lung sounds bilaterally; Absent respiratory distress, wheezes, stridor or accessory muscle use Cardiovascular Cardiovascular exam: Present regular rate and normal rhythm Abdominal Exam Abdominal exam: Present soft; Absent tenderness Extremities Exam Extremities exam: Present normal inspection Neurological Exam Neurological exam: Present alert and oriented X3 Psychiatric Psychiatric exam: Present normal affect Skin Skin exam: Present warm and dry Medical Decision Making Medical Records Medical records reviewed: Yes I reviewed the patient's medical records. Screening: Per USPSTF and CDC recommendations, given the prevalence of disease in our region, it is our hospital?s policy to screen for HIV and viral Hepatitis for all patients aged 18 and over and those with ongoing risk factors. Darrick Inquiry Pt receiving controlled substance: Yes Darrick was queried for this patient: No Risks and benefits of using a controlled substance: were discussed with pt by me Vital Signs: 11/07/25 17:10 11/07/25 18:30 11/07/25 19:19 Temperature 97.8 F Temperature Source Oral Pulse Rate 73 79 Pulse Rate [Orthostatic Lying] Pulse Rate [Orthostatic Sitting] Pulse Rate [Orthostatic Standing] Pulse Rate [Right] 94 H Respiratory Rate 20 18 19 Blood Pressure 212/94 H 211/90 H Blood Pressure [Orthostatic Lying Right Arm] Blood Pressure [Orthostatic Sitting Right Arm] Blood Pressure [Orthostatic Standing Right Arm] Blood Pressure [Right Arm] 222/119 H Blood Pressure Mean [Right Arm] 153 02 Sat by Pulse Oximetry 97 96 98 Oxygen Delivery Method Room Air Room Air Room Air 11/07/25 19:38 11/07/25 19:44 11/07/25 20:20 Temperature Temperature Source Pulse Rate Pulse Rate [Orthostatic Lying] 86 Pulse Rate [Orthostatic Sitting] 90 Pulse Rate [Orthostatic Standing] 97 H Pulse Rate [Right] Respiratory Rate Blood Pressure 234/108 H 233/92 H Blood Pressure [Orthostatic Lying Right Arm] 204/99 H Blood Pressure [Orthostatic Sitting Right Arm] 232/94 H Blood Pressure [Orthostatic Standing Right Arm] 177/96 H Blood Pressure [Right Arm] Blood Pressure Mean [Right Arm] 02 Sat by Pulse Oximetry Oxygen Delivery Method 11/07/25 21:18 Temperature 98.3 F Temperature Source Pulse Rate 73 Pulse Rate [Orthostatic Lying] Pulse Rate [Orthostatic Sitting] Pulse Rate [Orthostatic Standing] Pulse Rate [Right] Respiratory Rate 18 Blood Pressure 150/99 H Blood Pressure [Orthostatic Lying Right Arm] Blood Pressure [Orthostatic Sitting Right Arm] Blood Pressure [Orthostatic Standing Right Arm] Blood Pressure [Right Arm] Blood Pressure Mean [Right Arm] 02 Sat by Pulse Oximetry Oxygen Delivery Method Room Air Lab Data Lab results reviewed: Yes I reviewed the patient's lab results. Lab Results 11/07/25 17:10: Urine Color Yellow, Urine Appearance Clear, Urine pH 7.0, Ur Specific Maurice 1.015, Urine Protein Trace, Urine Glucose (UA) Negative, Urine Ketones Negative, Urine Blood Negative, Urine Nitrate Negative, Urine Bilirubin Negative, Urine Urobilinogen 1.0, Ur Leukocyte Esterase Negative, Urine RBC None, Urine WBC Occasional, Ur Squamous Epith Cells 5-10, Urine Bacteria 2+ 11/07/25 17:21: WBC 6.4, RBC 4.15 L, Hgb 13.3, Hct 39.2, MCV 94.5, MCH 32.0 H, MCHC 33.9, RDW 12.8, Plt Count 167, MPV 9.2, Neut % (Auto) 67.8, Lymph % (Auto) 23.0, Whitley % (Auto) 6.8, Eos % (Auto) 1.6, Baso % (Auto) 0.5, Neut # (Auto) 4.4, Lymph # (Auto) 1.5, Whitley # (Auto) 0.4, Eos # (Auto) 0.1, Baso # (Auto) 0.0, PT 10.6, INR 0.95, VBG pH 7.36, VBG pCO2 43.7, VBG pO2 56.0 H, VBG HCO3 24.3, VBG Total CO2 25.6, VBG O2 Saturation 88.6 H, VBG Base Excess -1.1, VBG Lactic Acid 2.0, Sodium 143, Potassium 4.3, Chloride 108 H, Carbon Dioxide 26, Anion Gap 13.3, BUN 18 H, Creatinine 1.00, Estimated Creat Clear 40, Estimated GFR 53 L, Est GFR ( Amer) 64, Glucose 131 H, Calcium 9.4, Magnesium 2.0, Total Bilirubin 0.5, AST 38 H, ALT 27, Alkaline Phosphatase 59, Troponin I < 0.01, NT-Pro-B Natriuret Pep 372, Total Protein 7.5, Albumin 4.5, Globulin 3.0, Albumin/Globulin Ratio 1.5, HCV Ab BETTY w/Rflx PCR Qn Negative 11/07/25 17:21 11/07/25 20:45 Orders (Tests/Meds): ED MEDICATIONS Generic Name Dose Route Start Last Admin Trade Name Freq PRN Reason Stop Dose Admin Acetaminophen 650 mg 11/07/25 20:42 Acetaminophen 325mg Tab PO 12/07/25 20:41 Q6HP PRN Fever or Mild Pain (1-3) Nicardipine HCl 25 mg/ Sodium 250 mls @ 50 mls/hr 11/07/25 20:36 Chloride IV 12/07/25 20:35 .Q5H LINDA Protocol 5 MG/HR Lorazepam 0.25 mg 11/07/25 21:01 11/07/25 21:15 Lorazepam 2mg/Ml Vial IV 11/07/25 21:02 0.25 mg ONCE ONE Administration Sodium Chloride 10 ml 11/07/25 21:01 Sodium Chloride 0.9% 10ml Vial IV 12/07/25 21:00 NEEDED PRN to Dilute Lorazepam inj Discontinued Medications Generic Name Dose Route Start Last Admin Trade Name Freq PRN Reason Stop Dose Admin Clonazepam 0.5 mg 11/07/25 20:37 11/07/25 21:07 Clonazepam 0.5mg Tablet PO 11/07/25 20:38 Not Given ONCE ONE Hydralazine HCl 10 mg 11/07/25 18:53 11/07/25 19:05 Hydralazine 20mg/Ml Vial IV 11/07/25 18:54 10 mg ONCE ONE Administration Hydralazine HCl 10 mg 11/07/25 19:46 11/07/25 19:51 Hydralazine 20mg/Ml Vial IV 11/07/25 19:47 10 mg ONCE ONE Administration Iopamidol 160 ml 11/07/25 18:03 11/07/25 18:04 Iopamidol-370 (76%);100ml Bottle IV 11/07/25 18:04 160 ml ONCE ONE Administration Sodium Chloride 50 ml 11/07/25 18:03 11/07/25 18:03 0.9 % Sodium Chloride 50 Ml Vial IV 11/07/25 18:04 50 ml ONCE ONE Administration Sodium Chloride 10 ml 11/07/25 18:03 11/07/25 18:04 Sodium Chloride 0.9% 10ml Syr (Rad Only) IV 11/07/25 18:04 10 ml ONCE ONE Administration ORDERS Category Date Time Status CT angio chest PE protocol Stat Cat Scan 11/07/25 17:[address] angio head Stat Cat Scan 11/07/25 17:[address] angio neck Stat Cat Scan 11/07/25 17:[address] head/brain wo con Stat Cat Scan 11/07/25 17:40 Completed XR chest portable Stat Exams 11/07/25 17:39 Completed Complete Blood Count Auto Diff Stat Lab 11/07/25 17:21 Completed Comprehensive Metabolic Panel Stat Lab 11/07/25 17:21 Completed HIV Combo Stat Lab 11/07/25 17:21 Received Hepatitis C Ab Qual. W/ RFX Stat Lab 11/07/25 17:21 Completed Magnesium Stat Lab 11/07/25 17:21 Completed NT Pro Brain Natriuretic Pep. Stat Lab 11/07/25 17:21 Completed PT INR [Prothrombin Time INR] Stat Lab 11/07/25 17:21 Completed Trop I [Troponin I] Stat Lab 11/07/25 17:21 Completed Troponin I Q3H Lab 11/07/25 20:45 Received Troponin I Q3H Lab 11/07/25 23:30 Ordered Urinalysis and Microscopic Stat Lab 11/07/25 17:10 Completed Urine Culture Stat Micro 11/07/25 17:10 Received Venous Blood Gas Stat RT 11/07/25 17:21 Completed Medical Decision Narrative: 79-year-old female presents to the emergency department with presyncopal episode, differential diagnose include but not limited to, vasovagal presyncope, orthostatic hypotension, postural syncope, cardiogenic syncope, cardiac arrhythmia, electrolyte disturbance, acute hypovolemia, peripheral vertigo, PE, hypertensive emergency/urgency, among others I discussed this patient's case with the attending physician Dr. Du Will obtain basic laboratory studies, EKG, chest x-ray, CT head without contrast, CTA head and neck with without contrast, CTA PE protocol, troponin magnesium coags urinalysis, orthostatic hypotension and VBG. CBC is unremarkable VBG within normal limits UA is unremarkable. CMP is notable for normal initial troponin at less than 0.01 minimal AST elevation at 38, proBNP is within normal limits. I reviewed the patient's CTA chest with without contrast PE protocol along the corresponding radiologic report, elevation of pulmonary arteries is limited to segmental arterial level due to poor bolus timing and motion artifact within the limitation of the study no pulmonary emboli. I reviewed the patient's CT head without contrast on the corresponding radiologic report no acute intracranial abnormality. I reviewed the patient's CTA head and neck with and without contrast on the corresponding radiologic report, no hemodynamically significant stenosis or large vessel occlusion, no hemodynamically significant stenosis. Patient still has quite significant hypertension with the systolic blood pressure over 230, this could be attributing to symptomatology, with negative CT imaging, will give 10 mg IV hydralazine for hypertensive urgency/emergency I reviewed the patient's chest x-ray along the corresponding radiologic report, no acute cardiopulmonary process. Orthostatics are somewhat positive, lying patient is 204 systolic over 99, sitting 232/94, and standing is 177/96. Patient was able to ambulate unassisted, no dizziness no lightheadedness no presyncopal or syncopal episode, placement blood pressure remains elevated 234/108 will give additional dose of 10 mg IV hydralazine. I attempted to call hospitalist provider at approximately 8:23 PM, at this time performed direct patient care she will call me back. I discussed this patient's case with Cali Williamson, the [facility] hospitalist provider, she is in agreement with the current admission/treatment plan for hypertensive emergency, failure of multiple antihypertensives IV and p.o. today. Will place the patient on a nicardipine drip IV due to lightheadedness, but no other focal neurological deficit. I discussed need for admission with the patient and family bedside patient family in agreement with the current treatment plan/admission plan, patient is quite anxious, will also give patient's at home anixolytic with 0.05 mg clonazepam. Critical Care Critical Care Time Critical Care Time: No
[2025-11-07 17:33] LABS: Microscopic, Urine URINE MICROSCOPIC (MICROSCOPIC)
[2025-11-07 17:35] LABS: Hematocrit 39.2 % (37.0-47.0); Hemoglobin 13.3 g/dL (12.2-16.2); Immature Granulocytes % 0.3 %; Mean Corpuscular HGB Conc 33.9 g/dL (31.8-35.4); Mean Corpuscular Hemoglobin 32.0 pg (27.0-31.2); Mean Corpuscular Volume 94.5 fl (81-99); Nucleated Red Blood Cells % 0 %; Platelet Count 167 K/mm3 (142-424); Red Blood Count 4.15 M/mm3 (4.20-5.40); Red Cell Distribution Width-SD 44.0 fL; White Blood Count 6.4 K/mm3 (4.8-10.8)
[2025-11-07 17:36] LABS: Lactate Venous 2.0 mmol/L (0.4-2.0); VBG HCO3 24.3 mmol/L (23-30); VBG PCO2 43.7 mmol/L (35-51); VBG PH 7.36 mmol/L (7.31-7.41); VBG PO2 56.0 mmol/L (28-40)
[2025-11-07 17:36] LABS: Bilirubin,Urine Negative (Negative); Color,Urine YELLOW (Yellow); Glucose,Urine (UA) Negative (Negative); Ketones,Urine Negative (Negative); Leukocyte Esterase,Urine Negative (Negative); PH,Urine 7.0 (5.0-8.5); Protein,Urine TRACE (Negative); Specific Gravity, Urine 1.015 (1.005-1.030); Urobilinogen,Urine 1.0 EU/dl (0.2)
--- NOTE | 2025-11-07 17:39 | XR_ITS ---
PROCEDURE INFORMATION: Exam: XR Chest Exam date and time: 11/07/2025 6:12 PM Age: 79 years old Clinical indication: Shortness of breath; Additional info: Lightheadedness/soa TECHNIQUE: Imaging protocol: Radiologic exam of the chest. Views: 1 view. COMPARISON: CT ANGIO CHEST PE PROTOCOL 11/07/2025 6:05 PM FINDINGS: Lungs: Unremarkable. No consolidation. Pleural spaces: Unremarkable. No pleural effusion. No pneumothorax. Heart/Mediastinum: Cardiac silhouette is magnified by portable technique. Bones/joints: Osteopenia. Degenerative change involving the shoulders and spine. IMPRESSION: No acute cardiopulmonary process.
[2025-11-07 17:40] LABS: Chloride 108 mmol/L (98-107)
--- NOTE | 2025-11-07 17:40 | CT_ITS ---
PROCEDURE INFORMATION: Exam: CTA Neck With Contrast Exam date and time: 11/07/2025 6:02 PM Age: 79 years old Clinical indication: Other: Lightheadedness/presyncope TECHNIQUE: Imaging protocol: Computed tomographic angiography of the neck with contrast. Exam focused on the cervical segments of the vasculature. 3D rendering (Not supervised by radiologist): MIP and/or 3D reconstructed images were created by the technologist. Radiation optimization: All CT scans at this facility use at least one of these dose optimization techniques: automated exposure control; mA and/or kV adjustment per patient size (includes targeted exams where dose is matched to clinical indication); or iterative reconstruction. Contrast material: ISO; Contrast volume: 80 ml; Contrast route: INTRAVENOUS (IV); COMPARISON: CT HEAD/BRAIN WO CON 11/07/2025 6:00 PM FINDINGS: Right common carotid artery: Minimal calcification at the right common carotid bifurcation without significant stenosis. Right internal carotid artery: No stenosis of the extracranial segment. No dissection or occlusion. Right external carotid artery: No occlusion or stenosis of the origin. Left common carotid artery: Calcification at the left common carotid bifurcation without significant stenosis. Left internal carotid artery: Calcification of the proximal left ICA without significant stenosis. Left external carotid artery: No occlusion or stenosis of the origin. Right vertebral artery: Right vertebral artery is dominant. Left vertebral artery: No stenosis. No dissection or occlusion. Soft tissues: Normal. No significant soft tissue swelling. Bones/joints: Degenerative change involving the spine. IMPRESSION: No hemodynamically significant stenosis. REFERENCES: NASCET CRITERIA. The degree of stenosis in the cervical segment of the internal carotid artery is based on NASCET criteria. Normal is no stenosis. Mild is less than 50% stenosis. Moderate is 50-69% stenosis. Severe is 70% to 99% stenosis. Total occlusion is no detectable patent lumen.
--- NOTE | 2025-11-07 17:40 | CT_ITS ---
PROCEDURE INFORMATION: Exam: CT Head Without Contrast Exam date and time: 11/07/2025 6:00 PM Age: 79 years old Clinical indication: Dizziness; Additional info: Lightheadedness/presyncope TECHNIQUE: Imaging protocol: Computed tomography of the head without contrast. Radiation optimization: All CT scans at this facility use at least one of these dose optimization techniques: automated exposure control; mA and/or kV adjustment per patient size (includes targeted exams where dose is matched to clinical indication); or iterative reconstruction. COMPARISON: No relevant prior studies available. FINDINGS: Brain: Age-related volume loss. No acute intracranial hemorrhage, midline shift or significant intracranial mass effect. Cerebral ventricles: No obstructive hydrocephalus. Paranasal sinuses: Mild paranasal sinus disease. Mastoid air cells: Visualized mastoid air cells are well aerated. Bones: Unremarkable. No acute fracture. Soft tissues: Unremarkable. IMPRESSION: No acute intracranial abnormality.
--- NOTE | 2025-11-07 17:40 | CT_ITS ---
PROCEDURE INFORMATION: Exam: CTA Chest With Contrast Exam date and time: 11/07/2025 6:05 PM Age: 79 years old Clinical indication: Other: Lightheadedness/presyncope TECHNIQUE: Imaging protocol: Computed tomographic angiography of the chest with contrast. Exam focused on the arteries. 3D rendering (Not supervised by radiologist): MIP and/or 3D reconstructed images were created by the technologist. Radiation optimization: All CT scans at this facility use at least one of these dose optimization techniques: automated exposure control; mA and/or kV adjustment per patient size (includes targeted exams where dose is matched to clinical indication); or iterative reconstruction. Contrast material: ISO; Contrast volume: 70 ml; Contrast route: INTRAVENOUS (IV); COMPARISON: CT ANGIO CHEST PE PROTOCOL 01/13/2023 9:27 AM FINDINGS: Pulmonary arteries: Evaluation of the pulmonary arteries is limited to the segmental arterial level due to poor bolus timing and motion artifacts. Aorta: The aorta demonstrates moderate atherosclerotic disease. Celiac and mesenteric arteries: Moderate proximal SMA stenosis. Renal arteries: Right renal arterial stent. Lungs: There is a 4 mm right upper lobe nodule image 41 series 6 unchanged since at least 2022. No follow-up imaging is warranted. Pleural spaces: Unremarkable. No pneumothorax. No pleural effusion. Heart: Cardiomegaly. Mitral and aortic valve calcifications. Coronary arteries: Coronary artery calcifications. Lymph nodes: Unremarkable. No enlarged lymph nodes. Kidneys: Low attenuation renal lesions measuring up to 1.9 cm in diameter are incompletely characterized, but are likely cysts. No followup imaging is warranted. Mild bilateral renal scarring. Bones/joints: There are chronic bilateral rib fractures. Soft tissues: Unremarkable. Other findings: Stigmata of old granulomatous disease. IMPRESSION: Evaluation of the pulmonary arteries is limited to the segmental arterial level due to poor bolus timing and motion artifacts. Within the limitations of the study, no pulmonary emboli. COMMENTS: Consistent with the [employer]'s Incidental Findings Committee white paper (J Am Neeraj Radiol 2018): Any incidental renal lesion less than 1 cm or classified as too small to characterize, or any incidental cystic renal lesion characterized as simple-appearing, is likely benign. No follow-up imaging is recommended for these lesions per consensus recommendations based on imaging criteria.
--- NOTE | 2025-11-07 17:40 | CT_ITS ---
PROCEDURE INFORMATION: Exam: CTA Head With Contrast, Arteriography Exam date and time: 11/07/2025 6:02 PM Age: 79 years old Clinical indication: Dizziness and giddiness; Additional info: Lightheadedness/presyncope TECHNIQUE: Imaging protocol: Computed tomographic angiography of the head with contrast. Exam focused on the arteries. 3D rendering (Not supervised by radiologist): MIP and/or 3D reconstructed images were created by the technologist. Radiation optimization: All CT scans at this facility use at least one of these dose optimization techniques: automated exposure control; mA and/or kV adjustment per patient size (includes targeted exams where dose is matched to clinical indication); or iterative reconstruction. Contrast material: ISO; Contrast volume: 80 ml; Contrast route: INTRAVENOUS (IV); COMPARISON: CT HEAD/BRAIN WO CON 11/07/2025 6:00 PM FINDINGS: ANTERIOR CIRCULATION: Right internal carotid artery: Calcification involving the right carotid siphon without significant stenosis. Right middle cerebral artery: No occlusion or significant stenosis. No aneurysm. Right anterior cerebral artery: No occlusion or significant stenosis. No aneurysm. Left internal carotid artery: Calcification involving the left carotid siphon without significant stenosis. Left middle cerebral artery: No occlusion or significant stenosis. No aneurysm. Left anterior cerebral artery: No occlusion or significant stenosis. No aneurysm. POSTERIOR CIRCULATION: Right vertebral artery: Right vertebral artery is dominant. 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 Basilar artery: Congenitally diminutive basilar artery. Right posterior cerebral artery: origin of the right posterior cerebral artery. Left posterior cerebral artery: origin of the left posterior cerebral artery. IMPRESSION: No hemodynamically significant stenosis or large vessel occlusion.
[2025-11-07 17:41] LABS: Albumin Level 4.5 g/dl (3.5-5.0); Potassium 4.3 mmoL/L (3.5-5.1); Sodium 143 mmol/L (136-145)
[2025-11-07 17:43] LABS: Blood Urea Nitrogen 18 mg/dl (7-17); Creatinine Clearance Estimated 40 mL/min (50-200); Creatinine,Serum 1.00 mg/dl (0.52-1.04); Estimated Glomerular Filt Rate 53 ml/min (>60); GFR (African American) 64 ML/MIN (>60)
[2025-11-07 17:44] LABS: Alanine Aminotransferase 27 U/L (12-78); Albumin/Globulin Ratio 1.5 (1.1-1.8); Alkaline Phosphatase 59 U/L (38-126); Anion Gap 13.3 mEq/L (5-15); Aspartate Amino Transferase 38 U/L (14-36); Bilirubin,Total 0.5 mg/dl (0.2-1.3); Calcium 9.4 mg/dl (8.4-10.2); Carbon Dioxide 26 mmol/L (22.0-30.0); Globulin 3.0 g/dL (1.3-3.2); Glucose 131 mg/dl (74-100); Total Protein,Serum 7.5 g/dl (6.3-8.2)
--- NOTE | 2025-11-07 17:54 | PC.NURSE ---
pt to CT via stretcher
[2025-11-07 17:57] LABS: INR 0.95 (0.9-1.1); Prothrombin Time 10.6 seconds (10.1-12.5)
[2025-11-07 18:01] LABS: Magnesium 2.0 mg/dl (1.6-2.3)
[2025-11-07 18:02] LABS: Troponin I < 0.01 ng/ml (0.00-0.034)
[2025-11-07] MEDS: 0.9 % SODIUM CHLORIDE 50 ML VIAL IV (18:03)
[2025-11-07] MEDS: IOPAMIDOL-370 (76%);100ML BOTTLE 160 ML IV (18:04)
[2025-11-07] MEDS: SODIUM CHLORIDE 0.9% 10ML SYR (RAD ONLY) 10 ML IV (18:04)
[2025-11-07 18:10] LABS: NT Pro Brain Natriuretic Pep. 372 pg/mL (0-450)
[2025-11-07 18:18] LABS: Bacteria,Urine 2+ /lpf; WBC,Urine Occasional #/hpf (0-3)
[2025-11-07] MEDS: HYDRALAZINE 20MG/ML VIAL 10 MG IV ×2 (19:05→19:51)
[2025-11-07 19:18] LABS: Hepatitis C Ab Qual. W/ RFX NEGATIVE (Negative)
--- NOTE | 2025-11-07 20:38 | PC.NURSE ---
supervisor color making notified of plans for admission
[2025-11-07 21:01] LABS: Chloride 107 mmol/L (98-107); Potassium 4.4 mmoL/L (3.5-5.1); Sodium 139 mmol/L (136-145)
[2025-11-07 21:04] LABS: Anion Gap 15.4 mEq/L (5-15); Blood Urea Nitrogen 19 mg/dl (7-17); Carbon Dioxide 21 mmol/L (22.0-30.0); Creatinine Clearance Estimated 40 mL/min (50-200); Creatinine,Serum 0.90 mg/dl (0.52-1.04); Estimated Glomerular Filt Rate 60 ml/min (>60); GFR (African American) 73 ML/MIN (>60); Glucose 149 mg/dl (74-100)
[2025-11-07 21:05] LABS: Calcium 9.5 mg/dl (8.4-10.2)
[2025-11-07] MEDS: LORazepam 2MG/ML VIAL 0.25 MG IV (21:15)
[2025-11-07 21:21] LABS: Free T4 (Free Thyroxine) 0.94 ng/dl (0.78-2.19)
[2025-11-07 21:36] LABS: Thyroid Stimulating Hormone 3.79 uIU/mL (0.465-4.68); Troponin I 0.01 ng/ml (0.00-0.034)
--- NOTE | 2025-11-07 22:08 | PC.NURSE ---
Pt arrived to unit via wheelchair at 1921
--- NOTE | 2025-11-07 22:12 | PC.NURSE ---
Pt arrived to unit via wheelchair @[id number]
[2025-11-08] VITALS (21 sets, daily range): BP systolic 101–190; BP diastolic 42–89; PULSE 65–84; RESP 15–23; TEMP 36.6–36.9; O2SAT 93–96; BMI 42.7
[2025-11-08] MEDS: LORazepam 2MG/ML VIAL 0.25 MG IV (00:05)
[2025-11-08 00:10] LABS: Troponin I 0.02 ng/ml (0.00-0.034)
--- NOTE | 2025-11-08 01:23 | P.HP_ITS ---
<Statement entered by Horace Keller MD - 11/08/25 07:18> Rounded on patient after nurse practitioner. Personally examined and interviewed patient. Agree with exam findings and care plan as documented. History of Present Illness *Admission Date: 11/07/25 *Reason for visit:: Dizziness and hypertension *History of present illness: This is an 79-year-old female with past medical history of CAD, hypertension, hyperlipidemia, significant anxiety disorder and renal artery stenosis s/p stent (2021) who presents emerged department today with complaints of dizziness. She reports being at [facility] this afternoon feeling she was in a pass out. States that she started feeling flushed and lightheaded. Went home and took her anxiety medicine hoping this would alleviate her symptoms however, she was sitting in her chair when she developed a similar episode. She denies any fever, cough, congestion, chest pain. Upon arrival to the emergency department she was noted to have systolic blood pressure over 200. EKG without ischemia. Mildly elevated anion gap of 15 but otherwise workup negative. Urinalysis with occasional white cells and +2 bacteria but no lower urinary tract symptoms. Blood pressure was attempted to be controlled Emergency Department with several doses of hydralazine as well as patient's oral Klonopin without improvement. Given her history of JESS and significant hypertension with dizziness it was felt she would benefit from hospitalization. [facility] Disclaimer: The information contained in this section may have been updated after the patient was seen, as this information can be updated by other users. Medical History (Updated 11/08/25 @ 01:34 by CASA Mccormick) Cataract Generalized anxiety disorder Chronically on benzodiazepine therapy Takotsubo cardiomyopathy Hyperlipidemia Diastolic dysfunction Elevated left ventricular end-diastolic pressure (LVEDP) Renal artery stenosis CAD (coronary artery disease) HTN (hypertension) History of DVT of lower extremity Left bundle branch block (LBBB) Surgical History (Updated 11/07/25 @ 22:22 by Sinai Dudley RN) History of hysterectomy History of left heart catheterization Family History Mother Hypertension Father Throat cancer Hypertension Social History Smoking Status: Never smoker alcohol intake: never current occupational status: retired Travel in the last 8 weeks?: Inside the [place] household members: children Have you lived/traveled outside US in past 30 days?: No Contact w/someone who lives/traveled outside US past 30 days?: No Exposure to someone with infectious disease in past 14 days?: No Do you have a fever (greater than 100.4 F or 38 C)?: No Have you tested positive for COVID-19?: No Exposed to someone with COVID-19 in past 14 days?: No Do you have a sore throat?: No Do you have a cough?: No Do you have any weakness?: No Do you have any diarrhea?: No Are you experiencing any unusual bleeding?: No Do you have any muscle aches/pain?: No Do you have any abdominal pain?: No Are you experiencing loss of taste or smell?: No Other Medical History Have you received the Flu Vaccine for this season: No Have you received the Pneumonia Vaccine: No Review of Systems Review of Systems Review of systems:: pertinent systems reviewed and negative unless documented below Review of systems (narrative): Negative except for HPI Meds Home Medications and Allergies Home Medications ?Medication ?Instructions ?Recorded ?Confirmed ?Type clonazepam 0.5 mg tablet 0.5 mg PO TIDP PRN Anxiety 0 06/14/22 11/07/25 History aspirin 81 mg tablet,delayed 81 mg PO DAILY heart heal th #30 01/13/23 11/07/25 Rx release tabs carvedilol 12.5 mg tablet 12.5 mg PO BID High blood pr essure 01/13/23 11/07/25 Rx #60 tabs lisinopril 20 mg tablet 20 mg PO BID Hypertension #6 0 tabs 01/13/23 11/07/25 Rx furosemide 20 mg tablet (Lasix) 20 mg PO DAILY #30 tab s 01/18/23 11/07/25 Rx New Prescriptions to Start Prescriptions: Allergies Allergy/AdvReac Type Severity Reaction Status Date / Time ciprofloxacin Allergy Verified 10/25/23 14:01 Exam Data for Last 24 hours Vital signs and Labs for Last 24 Hours: Temp Pulse Resp BP Pulse Ox O2 Del Method 97.4 F L 76 17 139/64 96 Room Air 11/07/25 22:01 11/08/25 00:01 11/08/25 00:01 11/08/25 00:01 11/08/25 00:01 11/08/25 00:01 Laboratory Results - last 24 hr 11/07/25 17:10: Urine Color Yellow, Urine Appearance Clear, Urine pH 7.0, Ur Specific [place] 1.015, Urine Protein Trace, Urine Glucose (UA) Negative, Urine Ketones Negative, Urine Blood Negative, Urine Nitrate Negative, Urine Bilirubin Negative, Urine Urobilinogen 1.0, Ur Leukocyte Esterase Negative, Urine RBC None, Urine WBC Occasional, Ur Squamous Epith Cells 5-10, Urine Bacteria 2+ 11/07/25 17:21: WBC 6.4, RBC 4.15 L, Hgb 13.3, Hct 39.2, MCV 94.5, MCH 32.0 H, MCHC 33.9, RDW 12.8, Plt Count 167, MPV 9.2, Neut % (Auto) 67.8, Lymph % (Auto) 23.0, [place] % (Auto) 6.8, Eos % (Auto) 1.6, Baso % (Auto) 0.5, Neut # (Auto) 4.4, Lymph # (Auto) 1.5, [place] # (Auto) 0.4, Eos # (Auto) 0.1, Baso # (Auto) 0.0, PT 10.6, INR 0.95, VBG pH 7.36, VBG pCO2 43.7, VBG pO2 56.0 H, VBG HCO3 24.3, VBG Total CO2 25.6, VBG O2 Saturation 88.6 H, VBG Base Excess -1.1, VBG Lactic Acid 2.0, Sodium 143, Potassium 4.3, Chloride 108 H, Carbon Dioxide 26, Anion Gap 13.3, BUN 18 H, Creatinine 1.00, Estimated Creat Clear 40, Estimated GFR 53 L, Est GFR ( Amer) 64, Glucose 131 H, Calcium 9.4, Magnesium 2.0, Total Bilirubin 0.5, AST 38 H, ALT 27, Alkaline Phosphatase 59, Troponin I < 0.01, NT-Pro-B Natriuret Pep 372, Total Protein 7.5, Albumin 4.5, Globulin 3.0, Albumin/Globulin Ratio 1.5, Free T4 0.94, HCV Ab BETTY w/Rflx PCR Qn Negative 11/07/25 20:45: Sodium 139, Potassium 4.4, Chloride 107, Carbon Dioxide 21 L, Anion Gap 15.4 H, BUN 19 H, Creatinine 0.90, Estimated Creat Clear 40, Estimated GFR 60, Est GFR ( Amer) 73, Glucose 149 H, Calcium 9.5, Troponin I 0.01, TSH 3.79 11/07/25 23:40: Troponin I 0.02 I & O for Last 24 hours: Intake & Output 11/05/25 11/06/25 11/07/25 11/08/25 23:59 23:59 23:59 23:59 Intake Total 236 / 236 Balance 236 / 236 Weight 116.256 kg Constitutional Constitutional: no acute distress *Routine HEENT Exam Head: Present normocephalic Eye: Present EOMI and PERRL ENT: Present mucous membranes moist *Routine Neck Exam Neck: Present supple; Absent lymphadenopathy *Routine Respiratory Exam Respiratory: Present CTA bilaterally *Routine Cardiovascular Exam Cardiovascular: Present RRR *Routine Abdominal Exam Abdominal: Present soft and normoactive bowel sounds; Absent tenderness *Routine Rectal Exam Rectal:: deferred *Routine Genitalia Exam Genitalia:: deferred *Routine Extremities Exam Extremities: Absent cyanosis, clubbing or edema *Routine Skin Exam Skin: Present warm; Absent rash *Routine Neurological Exam Neurological: Present alert and oriented X3 Detailed Psychiatric Exam Mood and affect: Present tearful Assessment and Plan *Assessment and plan (1) Hypertensive urgency: Status: Acute Category: Medical Code(s): I16.0 - Hypertensive urgency (2) Pre-syncope: Status: Acute Category: Medical Code(s): R55 - Syncope and collapse (3) Obesity: Status: Acute Qualifiers: Obesity type: due to excess calories Obesity classification: adult class 3 (BMI >= 40) Serious obesity comorbidity presence: with serious comorbidity Body mass index: BMI 40.0-44.9 Qualified Code(s): E66.01 - Morbid (severe) obesity due to excess calories; Z68.41 - Body mass index [BMI] 40.0- 44.9, adult Category: Medical Code(s): E66.9 - Obesity, unspecified (4) Generalized anxiety disorder: Status: Acute Category: Medical Code(s): F41.1 - Generalized anxiety disorder (5) Renal artery stenosis: Status: Acute Category: Medical Code(s): I70.1 - Atherosclerosis of renal artery (6) CAD (coronary artery disease): Status: Acute Qualifiers: Coronary Disease-Associated Artery/Lesion type: [place] artery [place] vs. transplanted heart: [place] heart Associated angina: with other forms of angina Qualified Code(s): I25.118 - Atherosclerotic heart disease of [place] coronary artery with other forms of angina pectoris Category: Medical Code(s): I25.10 - Atherosclerotic heart disease of [place] coronary artery without angina pectoris (7) HTN (hypertension): Status: Acute Qualifiers: Hypertension type: primary hypertension Qualified Code(s): I10 - Essential (primary) hypertension Category: Medical Code(s): I10 - Essential (primary) hypertension (8) Hyperlipidemia: Status: Acute Qualifiers: Hyperlipidemia type: mixed hyperlipidemia Qualified Code(s): E78.2 - Mixed hyperlipidemia Category: Medical Code(s): E78.5 - Hyperlipidemia, unspecified Plan #Hypertensive urgency #Presyncope #Dizziness #Renal artery stenosis Patient reports dizziness with several episodes of lightheadedness today. Systolic blood pressure in the 200s while in the emergency department. Refractory to IV hydralazine. Admitted for blood pressure stabilization but after patient was medicated for her anxiety patient had reduction in blood pressure to the 140s without further BP meds needed. Does have a history of renal artery stenosis with prior stent (2021). Did speak with Dr. Self about this patient, renal artery duplex ordered for a.m. EKG without ischemia. Troponin negative. Patient reports that she has not been taking her lisinopril as scheduled Continue lisinopril 20 mg twice daily Continue aspirin 81 mg daily Continue home carvedilol twice daily #Anxiety Significant anxiety upon admission to the hospital with extreme tearfulness and shaking Patient medicated with Klonopin per home medicine as well as IV Ativan. Patient with reduction in blood pressure to systolic of 140. Continue home Klonopin 0.5 mg 3 times daily as needed
[2025-11-08 06:48] LABS: Hematocrit 35.1 % (37.0-47.0); Immature Granulocytes % 0.2 %; Mean Corpuscular HGB Conc 33.9 g/dL (31.8-35.4); Mean Corpuscular Hemoglobin 32.0 pg (27.0-31.2); Mean Corpuscular Volume 94.4 fl (81-99); Nucleated Red Blood Cells % 0 %; Platelet Count 142 K/mm3 (142-424); Red Blood Count 3.72 M/mm3 (4.20-5.40); Red Cell Distribution Width-SD 44.5 fL; White Blood Count 5.6 K/mm3 (4.8-10.8)
--- NOTE | 2025-11-08 07:00 | CA_ITS ---
FINAL REPORT TECHNIQUE: Grayscale, color Doppler and duplex Doppler ultrasound of the kidneys, aorta and renal arteries was performed. Multiple velocities were measured. CLINICAL HISTORY: HTN, Hx-renal artery stenosis COMPARISON: None FINDINGS: Aorta velocity: 103 cm/sec Right kidney: 10.4 cm. No evidence of hydronephrosis or mass. Right intrarenal RI: 0.65-0.75 Right renal artery velocity: 202 cm/sec. Right RAR (Renal artery-Aortic Ratio): 1.96 Left Kidney: 11.4 cm. No evidence of hydronephrosis or mass. Left intrarenal RI: 0.66-0.79 Left renal artery velocity: 185 cm/sec. Left RAR (Renal Artery-Aortic Ratio): 1.8 IMPRESSION: Less than 60% stenosis of the renal arteries bilaterally. CT angiogram or postcontrast MR angiogram would be more sensitive for evaluation of possible renal artery stenosis. Reviewed, Interpreted and Dictated by Pedro Maloney MD Transcribed by Mansi Wen Authenticated and [facility]
[2025-11-08 07:11] LABS: Phosphorous 3.0 mg/dl (2.5-4.5)
[2025-11-08 07:12] LABS: Magnesium 2.1 mg/dl (1.6-2.3)
[2025-11-08 07:24] LABS: Hemoglobin 11.7 g/dL (12.2-16.2)
--- NOTE | 2025-11-08 08:09 | HMH.PHAINT1 ---
Pharmacy Intervention Comments: MEDICATION RECONCILIATION COMPLETED ON PATIENT USING EXTERNAL FILL HISTORY FROM PHARMACY. -ALANA OMER, SUKHWINDERD
[2025-11-08] MEDS: CARVEDILOL 12.5MG TABLET 12.5 MG PO ×2 (09:27→14:46)
[2025-11-08] MEDS: FUROSEMIDE 40 MG TABLET PO (09:27)
[2025-11-08] MEDS: LISINOPRIL 20MG TABLET 20 MG PO (09:27)
--- NOTE | 2025-11-08 09:47 | CA_ITS ---
APPROVED REPORT EXAM: Comprehensive 2D, Doppler, and color-flow Echocardiogram Software Packaging Engineer: LANA Mar, RVS Ht: 5 ft 3 in Wt: 260lbs BSA: 2.16 BP: 139/64 mmHg Indications: Near syncope, CAD, HTN, JESS, DD, HLD, Anxiety Echo Enhancing Agent Comments: TDS Due to large body habitus 2D Dimensions IVSd 1.13 cm LVEF (Visual) 61.90 % PWd 1.21 cm LVDd 4.05 cm LVDs 2.72 cm Left Atrium 2.98 cm M-Mode Dimensions LA Diam 3.81 cm (1.9-4.0) EPSs 0.67 cm TAPSE 1.79 (<1.7) LV Diastology E Decel Time 317 (160-240 msec) E/A Ratio 0.79 MED A' 11.80 cm/s LAT A' 12.10 cm/s Aortic Valve SONIA Index 1.26 cm2/m2 AoV Peak Juanjose. 189.0 (50-130 cm/s) AO Peak GR. 14.30 mmHg AO Mean GR. 7.40 (<5 mmHg) AO VTI 35.1 (18-25 cm) SONIA (VTI) 2.78 (2.5-4.5 cm2) Mitral Valve MV A Velocity 96.0 (40-130 cm/s) E/A Ratio 0.79 Pulmonary Valve PV Peak Velocity 117.0 (50-150 cm/s) Tricuspid Valve TR P. Velocity 293.00 cm/s RAP Estimate 10.00 mmHg RVSP 44.30 mmHg Left Ventricle The left ventricle is normal size. Left ventricular systolic function is normal. The left ventricular ejection fraction is within the normal range. There is increased left ventricular wall thickness. There is normal LV segmental wall motion. The left ventricular diastolic function is indeterminate. LVEF is 60%. Right Ventricle Right ventricle is mildly dilated. The right ventricular systolic function is normal. Atria Left atrium is mildly dilated. Right atrium is mildly dilated. There is no color Doppler evidence of interatrial shunt. Aortic Valve The aortic valve is mildly thickened. There is no hemodynamically significant aortic valvular stenosis. Trace aortic regurgitation is present. Mitral Valve The mitral valve is normal in structure. No evidence of mitral valve stenosis. Mild mitral regurgitation is present. Tricuspid Valve The tricuspid valve leaflets are thin and pliable. Mild tricuspid regurgitation. RVSP is 30-35 mmHg. Pulmonic Valve The pulmonary valve is grossly normal in structure. Trace pulmonic valve regurgitation is present. Great Vessels The aortic root is normal in size. IVC is normal in size and collapses >50% with inspiration. Pericardium There is no pericardial effusion. Other Information Study Quality: Fair Conclusion Normal biventricular systolic function. Mild RV dilation. Mild biatrial dilation. Mild TR. Electronically signed by : Nicole Antonio MD 11/08/2025 12:44:24
--- NOTE | 2025-11-08 12:10 | EXP.CARD.CON ---
History of Present Illness History of Present Illness Consult date: 11/08/25 Requesting physician: Horace Keller Chief complaint: dizziness and hypertension History of present illness: This is an 79-year-old white female who presented to the emergency department complaints of dizziness and hypertension. She has a past medical history of coronary artery disease, hypertension, hyperlipidemia, renal artery stenosis status post stenting and anxiety. The patient states that she has been having these episodes where she will get significantly dizzy and felt like she is going to pass out but she has not had any syncope. She states then she gets a buzzing in her head with the dizziness. She states that this comes in waves and goes. She states she had a severe episode the day of admission. Her blood pressure was also malignantly elevated with her systolic pressure over 200s. She denies any chest pain or pressure. She denies any shortness of breath. She denies any edema. She denies any fever, chills, nausea, vomiting or diarrhea. [facility] Disclaimer: The information contained in this section may have been updated after the patient was seen, as this information can be updated by other users. Medical History (Updated 11/08/25 @ 12:16 by Pallavi Felix APRN) Heart murmur Cataract Generalized anxiety disorder Chronically on benzodiazepine therapy [place]o cardiomyopathy Hyperlipidemia Diastolic dysfunction Elevated left ventricular end-diastolic pressure (LVEDP) Renal artery stenosis CAD (coronary artery disease) HTN (hypertension) History of DVT of lower extremity Left bundle branch block (LBBB) Surgical History (Updated 11/07/25 @ 22:22 by Sinai Dudley RN) History of hysterectomy History of left heart catheterization Family History Mother Hypertension Father Throat cancer Hypertension Social History Smoking Status: Never smoker alcohol intake: never current occupational status: retired Travel in the last 8 weeks?: Inside the [place] household members: children Have you lived/traveled outside [place] in past 30 days?: No Contact w/someone who lives/traveled outside [place] past 30 days?: No Exposure to someone with infectious disease in past 14 days?: No Do you have a fever (greater than 100.4 F or 38 C)?: No Have you tested positive for COVID-19?: No Exposed to someone with COVID-19 in past 14 days?: No Do you have a sore throat?: No Do you have a cough?: No Do you have any weakness?: No Do you have any diarrhea?: No Are you experiencing any unusual bleeding?: No Do you have any muscle aches/pain?: No Do you have any abdominal pain?: No Are you experiencing loss of taste or smell?: No Review of Systems Review of Systems Review of systems:: pertinent systems reviewed and negative unless documented below Constitutional Constitutional: Reports system reviewed and no additional complaints, except as documented, Reports fatigue and Reports lethargy Eyes Eyes: Reports system reviewed and no additional complaints, except as documented ENT Ears, Nose, Mouth, and Throat: Reports system reviewed and no additional complaints, except as documented and Reports dizziness *Cardiovascular Cardiovascular: Reports system reviewed and no additional complaints, except as documented and Reports lightheadedness *Respiratory Respiratory: Reports system reviewed and no additional complaints, except as documented *Gastrointestinal Gastrointestinal: Reports system reviewed and no additional complaints, except as documented *Genitourinary Genitourinary: Reports system reviewed and no additional complaints, except as documented *Musculoskeletal Musculoskeletal: Reports system reviewed and no additional complaints, except as documented Integumentary/Breasts Skin/Breast: Reports system reviewed and no additional complaints, except as documented *Neurologic Neurologic: Reports system reviewed and no additional complaints, except as documented and Reports dizziness Psychiatric Psychiatric: Reports system reviewed and no additional complaints, except as documented Endocrine Endocrine: Reports system reviewed and no additional complaints, except as documented and Reports fatigue Hematologic/Lymphatic Hematologic/Lymphatic: Reports system reviewed and no additional complaints, except as documented Allergic/Immunologic Allergic/Immunologic: Reports system reviewed and no additional complaints, except as documented Exam Data for Last 24 hours Vital signs and Labs for Last 24 Hours: Temp Pulse Resp BP Pulse Ox O2 Del Method 97.8 F 75 23 174/73 H 94 L Room Air 11/08/25 04:05 11/08/25 10:31 11/08/25 10:31 11/08/25 10:31 11/08/25 10:31 11/08/25 10:31 Laboratory Results - last 24 hr 11/07/25 17:10: Urine Color Yellow, Urine Appearance Clear, Urine pH 7.0, Ur Specific [place] 1.015, Urine Protein Trace, Urine Glucose (UA) Negative, Urine Ketones Negative, Urine Blood Negative, Urine Nitrate Negative, Urine Bilirubin Negative, Urine Urobilinogen 1.0, Ur Leukocyte Esterase Negative, Urine RBC None, Urine WBC Occasional, Ur Squamous Epith Cells 5-10, Urine Bacteria 2+ 11/07/25 17:21: WBC 6.4, RBC 4.15 L, Hgb 13.3, Hct 39.2, MCV 94.5, MCH 32.0 H, MCHC 33.9, RDW 12.8, Plt Count 167, MPV 9.2, Neut % (Auto) 67.8, Lymph % (Auto) 23.0, [place] % (Auto) 6.8, Eos % (Auto) 1.6, Baso % (Auto) 0.5, Neut # (Auto) 4.4, Lymph # (Auto) 1.5, [place] # (Auto) 0.4, Eos # (Auto) 0.1, Baso # (Auto) 0.0, PT 10.6, INR 0.95, VBG pH 7.36, VBG pCO2 43.7, VBG pO2 56.0 H, VBG HCO3 24.3, VBG Total CO2 25.6, VBG O2 Saturation 88.6 H, VBG Base Excess -1.1, VBG Lactic Acid 2.0, Sodium 143, Potassium 4.3, Chloride 108 H, Carbon Dioxide 26, Anion Gap 13.3, BUN 18 H, Creatinine 1.00, Estimated Creat Clear 40, Estimated GFR 53 L, Est GFR ( Amer) 64, Glucose 131 H, Calcium 9.4, Magnesium 2.0, Total Bilirubin 0.5, AST 38 H, ALT 27, Alkaline Phosphatase 59, Troponin I < 0.01, NT-Pro-B Natriuret Pep 372, Total Protein 7.5, Albumin 4.5, Globulin 3.0, Albumin/Globulin Ratio 1.5, Free T4 0.94, HCV Ab BETTY w/Rflx PCR Qn Negative, HIV Ag/Ab Combo Qual Negative 11/07/25 20:45: Sodium 139, Potassium 4.4, Chloride 107, Carbon Dioxide 21 L, Anion Gap 15.4 H, BUN 19 H, Creatinine 0.90, Estimated Creat Clear 40, Estimated GFR 60, Est GFR ( Amer) 73, Glucose 149 H, Calcium 9.5, Troponin I 0.01, TSH 3.79 11/07/25 23:40: Troponin I 0.02 11/08/25 05:06: WBC 5.6, RBC 3.72 L, Hgb 11.7 L D, Hct 35.1 L, MCV 94.4, MCH 32.0 H, MCHC 33.9, RDW 12.8, Plt Count 142, MPV 9.6, Neut % (Auto) 64.7, Lymph % (Auto) 25.0, [place] % (Auto) 8.6, Eos % (Auto) 1.1, Baso % (Auto) 0.4, Neut # (Auto) 3.6, Lymph # (Auto) 1.4, [place] # (Auto) 0.5, Eos # (Auto) 0.1, Baso # (Auto) 0.0, Phosphorus 3.0, Magnesium 2.1 I & O for Last 24 hours: Intake & Output 11/05/25 11/06/25 11/07/25 11/08/25 23:59 23:59 23:59 23:59 Intake Total 236 / 236 Output Total 0 / 0 Balance 236 / 236 Weight 256 lb 4.8 oz 256 lb 4.809 oz Constitutional Constitutional: no acute distress and morbidly obese *Routine HEENT Exam Head: Present normocephalic and atraumatic ENT: Present mucous membranes moist *Routine Neck Exam Neck: Present supple, full ROM and normal carotid upstroke; Absent JVD, carotid bruit or lymphadenopathy *Routine Respiratory Exam Respiratory: Present CTA bilaterally, normal respiratory effort, able to speak in complete sentences and symmetric chest movement *Routine Cardiovascular Exam Cardiovascular: Present RRR, Normal S1, Normal S2 and murmur; Absent gallop *Routine Abdominal Exam Abdominal: Present soft and normoactive bowel sounds; Absent tenderness, distended or organomegaly *Routine Extremities Exam Extremities: Present full ROM, pulses intact and normal capillary refill; Absent cyanosis, clubbing or edema *Routine Skin Exam Skin: Present intact and warm; Absent erythema *Routine Neurological Exam Neurological: Present alert, oriented X3 and CN II-XII intact; Absent sensory deficit or motor deficit Routine Psychiatric Exam Psychiatric: Present normal affect Meds Home Medications and Allergies Home Medications ?Medication ?Instructions ?Recorded ?Confirmed ?Type clonazepam 0.5 mg tablet 0.5 mg PO TID 06/14/22 11/08/25 History carvedilol 12.5 mg tablet 12.5 mg PO BID High blood pressure 01/13/23 11/07/25 Rx #60 tabs lisinopril 20 mg tablet 20 mg PO BID Hypertension #60 tabs 01/13/23 11/07/25 Rx aspirin 81 mg tablet,delayed 81 mg PO DAILY 11/08/25 11/07/25 History release New Prescriptions to Start Prescriptions: Allergies Allergy/AdvReac Type Severity Reaction Status Date / Time ciprofloxacin Allergy Verified 10/25/23 14:01 Assessment and Plan *Assessment and plan (1) Pre-syncope: Status: Acute Category: Medical Code(s): R55 - Syncope and collapse (2) Hypertensive urgency: Status: Acute Category: Medical Code(s): I16.0 - Hypertensive urgency (3) CAD (coronary artery disease): Status: Acute Qualifiers: Associated angina: with other forms of angina Coronary Disease-Associated Artery/Lesion type: [place] artery [place] vs. transplanted heart: [place] heart Qualified Code(s): I25.118 - Atherosclerotic heart disease of [place] coronary artery with other forms of angina pectoris Category: Medical Code(s): I25.10 - Atherosclerotic heart disease of [place] coronary artery without angina pectoris (4) HTN (hypertension): Status: Acute Qualifiers: Hypertension type: primary hypertension Qualified Code(s): I10 - Essential (primary) hypertension Category: Medical Code(s): I10 - Essential (primary) hypertension (5) Hyperlipidemia: Status: Acute Qualifiers: Hyperlipidemia type: mixed hyperlipidemia Qualified Code(s): E78.2 - Mixed hyperlipidemia Category: Medical Code(s): E78.5 - Hyperlipidemia, unspecified (6) Renal artery stenosis: Status: Acute Category: Medical Code(s): I70.1 - Atherosclerosis of renal artery (7) Heart murmur: Status: Acute Category: Medical Code(s): R01.1 - Cardiac murmur, unspecified Plan Plan: 1. The patient was admitted to the hospital after presyncopal episode and she was found to have hypertensive urgency. Her blood pressure is better today than it was yesterday. Her symptoms are most likely from her significant hypertension. She needs better blood pressure control. Will increase her carvedilol to 25 mg p.o. twice daily and continue lisinopril 20 mg p.o. twice daily. 2. Renal duplex shows less than 60% renal artery stenosis bilaterally. 3. Echocardiogram shows normal ejection fraction with mild RV dilatation. No evidence of mitral valve prolapse. She does have mild MR. Previous echocardiograms in 2019 and 2021 also showed no evidence of mitral valve prolapse. 4. Coronary artery disease is present. She did have coronary stenting to her LAD in 2021. Recommend aspirin 81 mg daily. Her troponins were negative. No plans for invasive left cardiac catheterization during this hospitalization. 5. We do recommend outpatient ischemic evaluation when she is discharged from the hospital. 6. Her LDL goal is less than 55. Will get a lipid panel. Will start her on Lipitor 40 mg p.o. nightly. 7. The patient has also been started on Lasix which will also help her blood pressure. 8. Further recommendations will be made pending the patient's response to treatment. Thank you for the opportunity to help participate in the care of this patient. All recommendations and orders are per Dr. Antonio.
[2025-11-08] MEDS: ASPIRIN EC 81MG TABLET 81 MG PO (12:43)
--- NOTE | 2025-11-08 13:47 | HMH.OTEV ---
OT Evaluation Rehab OT IP Evaluation Start: 11/08/25 09:48 Freq: ONCE Status: Active Protocol: Document 11/08/25 13:43 [facility] (Rec: 11/08/25 13:47 [facility] [id number]) Rehab OT IP Assessment Subjective History Pt oriented x 3 on arrival; pt agreeable to engage in therapy evaluation. Pt admitted on 11/17/25 due to dizziness and high blood pressure. History and physical: This is an 79-year-old female with past medical history of CAD, hypertension, hyperlipidemia, significant anxiety disorder and renal artery stenosis s/p stent ( 2021) who presents emerged department today with complaints of dizziness. She reports being at [facility] this afternoon feeling she was in a pass out. States that she started feeling flushed and lightheaded. Went home and took her anxiety medicine hoping this would alleviate her symptoms however, she was sitting in her chair when she developed a similar episode. She denies any fever, cough, congestion, chest pain. Upon arrival to the emergency department she was noted to have systolic blood pressure over 200. EKG without ischemia. Mildly elevated anion gap of 15 but otherwise workup negative. Urinalysis with occasional white cells and +2 bacteria but no lower urinary tract symptoms. Blood pressure was attempted to be controlled Emergency Department with several doses of hydralazine as well as patient's oral Klonopin without improvement. Given her history of JESS and significant hypertension with dizziness it was felt she would benefit from hospitalization. Subjective Prior to being in the hospital, pt lived with her son. Pt claims normally she is independent with all ADLs and IADLS. Pt still works part-time. Pt uses a cane intermittently as needed. She still drives. Objective Patient Orientation Person,Place,Birthday Right Upper WFL Extremity Gross ROM Left Upper Extremity WFL Gross ROM Bed Mobility bed mobility-scooting,bed mobility - supine/sit Assist Level Supervision/Stand by Assist Level Supervision/Stand by Lower Body Dressing Standby Assistance Ability Performing Toilet Standby Assistance Hygiene Ability Overall Commode/ Standby Assistance Toilet Transfer Ability Commode/Toilet Sit to/from Ambulatory Transfer Technique Rehab OT IP prob,goals,plan Problems Date of Evaluation: 11/08/25 Rehab Potential Rehab Potential Innapropriate for Skilled Therapy Discharge Plan OT Discharge Plan Pt appears to be at her baseline at this time, no further tx required at this time. Pt can return home with family once she is medically appropriate. Eval Complexity Eval Charge Codes 39602 - Moderate Complexity PHYSICIAN CERTIFICATION: I certify the specified therapy services for Amberly Truman Rodriguez are required, authorized, and reviewed every 30 days.
--- NOTE | 2025-11-08 15:53 | EXP.DC.SUM ---
General Admission date:: 11/07/25 Discharge date: 11/08/25 HPI HPI HPI: This is an 79-year-old female with past medical history of CAD, hypertension, hyperlipidemia, significant anxiety disorder and renal artery stenosis s/p stent (2021) who presents emerged department today with complaints of dizziness. She reports being at [facility] this afternoon feeling she was in a pass out. States that she started feeling flushed and lightheaded. Went home and took her anxiety medicine hoping this would alleviate her symptoms however, she was sitting in her chair when she developed a similar episode. She denies any fever, cough, congestion, chest pain. Upon arrival to the emergency department she was noted to have systolic blood pressure over 200. EKG without ischemia. Mildly elevated anion gap of 15 but otherwise workup negative. Urinalysis with occasional white cells and +2 bacteria but no lower urinary tract symptoms. Blood pressure was attempted to be controlled Emergency Department with several doses of hydralazine as well as patient's oral Klonopin without improvement. Given her history of JESS and significant hypertension with dizziness it was felt she would benefit from hospitalization. Hospital Course Hospital Course Hospital Course: Pleasant 79-year-old female who struggles with severe anxiety and hypertension. Had with hypertensive urgency to the ER. Was admitted for treatment overnight. Responded well to resumption of home regimen. Cardiology evaluated and recommended adjusting blood pressure regimen with discharge home and close follow-up as an outpatient. Echo obtained during admission, showed normal EF. No evidence of mitral valve prolapse but does have mild mitral regurgitation. Stable on previous echoes from 2019 and 2021. Will discharge home with close follow-up as an outpatient. Problems addressed as follows: #Hypertensive urgency #Presyncope #Dizziness #Renal artery stenosis Patient reports dizziness with several episodes of lightheadedness on day of admission. Systolic blood pressure in the 200s while in the emergency department. Refractory to IV hydralazine. Admitted for blood pressure stabilization and cardiology evaluation. Showed improvement with resumption of her home medication and treatment of her anxiety. Blood pressure with systolics 150-160 on morning of discharge. Cardiology evaluated, recommended renal artery duplex and echocardiogram along with adjustment of medications. - Renal duplex shows less than 60% renal artery stenosis bilaterally. Echocardiogram shows normal ejection fraction with mild RV dilatation. No evidence of mitral valve prolapse. She does have mild MR. Previous echocardiograms in 2019 and 2022 also showed no evidence of mitral valve prolapse. - Coronary artery disease is present. She did have coronary stenting to her LAD in 2021. Recommend aspirin 81 mg daily. Her troponins were negative. No plans for invasive left cardiac catheterization during this hospitalization. Recommend outpatient ischemic eval and follow-up with cardiology in 1 to 2 weeks. -Continue Lipitor 40 mg nightly. In regard to blood pressure, will continue lisinopril 20 mg twice daily. Increase carvedilol to 25 mg twice daily. Initiate Lasix 40 mg daily. #Anxiety Significant anxiety upon admission to the hospital with extreme tearfulness and shaking. Patient medicated with Klonopin per home medicine as well as IV Ativan. Continue home Klonopin 0.5 mg 3 times daily as needed. Would benefit from outpatient evaluation by psychiatry for further management of her anxiety. May benefit from therapy/CBT. Total time spent on discharge 32 minutes in counseling, documentation, chart review, and direct care with patient. Exam Data for Last 24 hours Vital signs and Labs for Last 24 Hours: Temp Pulse Resp BP Pulse Ox O2 Del Method 98.5 F 75 19 154/87 H 94 L Room Air 11/08/25 12:01 11/08/25 15:01 11/08/25 15:01 11/08/25 15:01 11/08/25 15:01 11/08/25 15:01 Laboratory Results - last 24 hr 11/07/25 17:10: Urine Color Yellow, Urine Appearance Clear, Urine pH 7.0, Ur Specific [place] 1.015, Urine Protein Trace, Urine Glucose (UA) Negative, Urine Ketones Negative, Urine Blood Negative, Urine Nitrate Negative, Urine Bilirubin Negative, Urine Urobilinogen 1.0, Ur Leukocyte Esterase Negative, Urine RBC None, Urine WBC Occasional, Ur Squamous Epith Cells 5-10, Urine Bacteria 2+ 11/07/25 17:21: WBC 6.4, RBC 4.15 L, Hgb 13.3, Hct 39.2, MCV 94.5, MCH 32.0 H, MCHC 33.9, RDW 12.8, Plt Count 167, MPV 9.2, Neut % (Auto) 67.8, Lymph % (Auto) 23.0, [place] % (Auto) 6.8, Eos % (Auto) 1.6, Baso % (Auto) 0.5, Neut # (Auto) 4.4, Lymph # (Auto) 1.5, [place] # (Auto) 0.4, Eos # (Auto) 0.1, Baso # (Auto) 0.0, PT 10.6, INR 0.95, VBG pH 7.36, VBG pCO2 43.7, VBG pO2 56.0 H, VBG HCO3 24.3, VBG Total CO2 25.6, VBG O2 Saturation 88.6 H, VBG Base Excess -1.1, VBG Lactic Acid 2.0, Sodium 143, Potassium 4.3, Chloride 108 H, Carbon Dioxide 26, Anion Gap 13.3, BUN 18 H, Creatinine 1.00, Estimated Creat Clear 40, Estimated GFR 53 L, Est GFR ( Amer) 64, Glucose 131 H, Calcium 9.4, Magnesium 2.0, Total Bilirubin 0.5, AST 38 H, ALT 27, Alkaline Phosphatase 59, Troponin I < 0.01, NT-Pro-B Natriuret Pep 372, Total Protein 7.5, Albumin 4.5, Globulin 3.0, Albumin/Globulin Ratio 1.5, Free T4 0.94, HCV Ab BETTY w/Rflx PCR Qn Negative, HIV Ag/Ab Combo Qual Negative 11/07/25 20:45: Sodium 139, Potassium 4.4, Chloride 107, Carbon Dioxide 21 L, Anion Gap 15.4 H, BUN 19 H, Creatinine 0.90, Estimated Creat Clear 40, Estimated GFR 60, Est GFR ( Amer) 73, Glucose 149 H, Calcium 9.5, Troponin I 0.01, TSH 3.79 11/07/25 23:40: Troponin I 0.02 11/08/25 05:06: WBC 5.6, RBC 3.72 L, Hgb 11.7 L D, Hct 35.1 L, MCV 94.4, MCH 32.0 H, MCHC 33.9, RDW 12.8, Plt Count 142, MPV 9.6, Neut % (Auto) 64.7, Lymph % (Auto) 25.0, [place] % (Auto) 8.6, Eos % (Auto) 1.1, Baso % (Auto) 0.4, Neut # (Auto) 3.6, Lymph # (Auto) 1.4, [place] # (Auto) 0.5, Eos # (Auto) 0.1, Baso # (Auto) 0.0, Phosphorus 3.0, Magnesium 2.1 I & O for Last 24 hours: Intake & Output 11/05/25 11/06/25 11/07/25 11/08/25 23:59 23:59 23:59 23:59 Intake Total 236 / 236 Output Total 0 / 0 Balance 236 / 236 Weight 116.256 kg 116.256 kg Constitutional Constitutional: no acute distress, morbidly obese and cooperative *Routine HEENT Exam Head: Present normocephalic Eye: Present EOMI and PERRL ENT: Present mucous membranes moist *Routine Neck Exam Neck: Present supple and trachea midline; Absent lymphadenopathy *Routine Respiratory Exam Respiratory: Present CTA bilaterally, normal respiratory effort and symmetric chest movement *Routine Cardiovascular Exam Cardiovascular: Present RRR *Routine Abdominal Exam Abdominal: Present soft and normoactive bowel sounds; Absent tenderness *Routine Rectal Exam Patient deferred: visual exam *Routine Exam Patient deferred: external exam *Routine Extremities Exam Extremities: Absent cyanosis, clubbing or edema *Routine Skin Exam Skin: Present intact and warm; Absent rash *Routine Neurological Exam Neurological: Present alert, oriented X3, moving all extremities, vision grossly intact, hearing grossly intact and normal speech; Absent sensory deficit or motor deficit Routine Psychiatric Exam Psychiatric: Present normal affect, normal thought process, cooperative, good insight and good judgment Results Data Completed and Pending Labs on day of discharge: Labs from last 24 hours 11/08/25 11/07/25 11/07/25 05:06 23:40 20:45 WBC 5.6 RBC 3.72 L Hgb 11.7 L D Hct 35.1 L MCV 94.4 MCH 32.0 H MCHC 33.9 RDW 12.8 Plt Count 142 MPV 9.6 Neut % (Auto) 64.7 Lymph % (Auto) 25.0 [place] % (Auto) 8.6 Eos % (Auto) 1.1 Baso % (Auto) 0.4 Neut # (Auto) 3.6 Lymph # (Auto) 1.4 [place] # (Auto) 0.5 Eos # (Auto) 0.1 Baso # (Auto) 0.0 PT INR VBG pH VBG pCO2 VBG pO2 VBG HCO3 VBG Total CO2 VBG O2 Saturation VBG Base Excess VBG Lactic Acid Sodium 139 Potassium 4.4 Chloride 107 Carbon Dioxide 21 L Anion Gap 15.4 H BUN 19 H Creatinine 0.90 Estimated Creat Clear 40 Estimated GFR 60 Est GFR ( Amer) 73 Glucose 149 H Calcium 9.5 Phosphorus 3.0 Magnesium 2.1 Total Bilirubin AST ALT Alkaline Phosphatase Troponin I 0.02 0.01 NT-Pro-B Natriuret Pep Total Protein Albumin Globulin Albumin/Globulin Ratio TSH 3.79 Free T4 Urine Color Urine Appearance Urine pH Ur Specific [place] Urine Protein Urine Glucose (UA) Urine Ketones Urine Blood Urine Nitrate Urine Bilirubin Urine Urobilinogen Ur Leukocyte Esterase Urine RBC Urine WBC Ur Squamous Epith Cells Urine Bacteria HCV Ab BETTY w/Rflx PCR Qn HIV Ag/Ab Combo Qual 11/07/25 11/07/25 17:21 17:10 WBC 6.4 RBC 4.15 L Hgb 13.3 Hct 39.2 MCV 94.5 MCH 32.0 H MCHC 33.9 RDW 12.8 Plt Count 167 MPV 9.2 Neut % (Auto) 67.8 Lymph % (Auto) 23.0 [place] % (Auto) 6.8 Eos % (Auto) 1.6 Baso % (Auto) 0.5 Neut # (Auto) 4.4 Lymph # (Auto) 1.5 [place] # (Auto) 0.4 Eos # (Auto) 0.1 Baso # (Auto) 0.0 PT 10.6 INR 0.95 VBG pH 7.36 VBG pCO2 43.7 VBG pO2 56.0 H VBG HCO3 24.3 VBG Total CO2 25.6 VBG O2 Saturation 88.6 H VBG Base Excess -1.1 VBG Lactic Acid 2.0 Sodium 143 Potassium 4.3 Chloride 108 H Carbon Dioxide 26 Anion Gap 13.3 BUN 18 H Creatinine 1.00 Estimated Creat Clear 40 Estimated GFR 53 L Est GFR ( Amer) 64 Glucose 131 H Calcium 9.4 Phosphorus Magnesium 2.0 Total Bilirubin 0.5 AST 38 H ALT 27 Alkaline Phosphatase 59 Troponin I < 0.01 NT-Pro-B Natriuret Pep 372 Total Protein 7.5 Albumin 4.5 Globulin 3.0 Albumin/Globulin Ratio 1.5 TSH Free T4 0.94 Urine Color Yellow Urine Appearance Clear Urine pH 7.0 Ur Specific [place] 1.015 Urine Protein Trace Urine Glucose (UA) Negative Urine Ketones Negative Urine Blood Negative Urine Nitrate Negative Urine Bilirubin Negative Urine Urobilinogen 1.0 Ur Leukocyte Esterase Negative Urine RBC None Urine WBC Occasional Ur Squamous Epith Cells 5-10 Urine Bacteria 2+ HCV Ab BETTY w/Rflx PCR Qn Negative HIV Ag/Ab Combo Qual Negative DS: Diagnosis Discharge Diagnosis (1) Pre-syncope: Status: Acute Code(s): R55 - Syncope and collapse (2) Hypertensive urgency: Status: Acute Code(s): I16.0 - Hypertensive urgency (3) CAD (coronary artery disease): Status: Acute Code(s): I25.10 - Atherosclerotic heart disease of rampart coronary artery without angina pectoris Qualifiers: Associated angina: with other forms of angina Coronary Disease-Associated Artery/Lesion type: rampart artery [place] vs. transplanted heart: rampart heart Qualified Code(s): I25.118 - Atherosclerotic heart disease of rampart coronary artery with other forms of angina pectoris (4) HTN (hypertension): Status: Acute Code(s): I10 - Essential (primary) hypertension Qualifiers: Hypertension type: primary hypertension Qualified Code(s): I10 - Essential (primary) hypertension (5) Hyperlipidemia: Status: Acute Code(s): E78.5 - Hyperlipidemia, unspecified Qualifiers: Hyperlipidemia type: mixed hyperlipidemia Qualified Code(s): E78.2 - Mixed hyperlipidemia (6) Renal artery stenosis: Status: Acute Code(s): I70.1 - Atherosclerosis of renal artery (7) Heart murmur: Status: Acute Code(s): R01.1 - Cardiac murmur, unspecified (8) Morbid obesity with BMI of 40.0-44.9, adult: Status: Chronic Code(s): E66.01 - Morbid (severe) obesity due to excess calories; Z68.41 - Body mass index [BMI] 40.0-44.9, adult Meds Home Medications and Allergies Home Medications ?Medication ?Instructions ?Recorded ?Confirmed ?Type clonazepam 0.5 mg tablet 0.5 mg PO TID 06/14/22 11/08/25 History lisinopril 20 mg tablet 20 mg PO BID Hypertension #60 tabs 01/13/23 11/07/25 Rx aspirin 81 mg tablet,delayed 81 mg PO DAILY 11/08/25 11/07/25 History release atorvastatin 40 mg tablet 40 mg PO HS 30 days #30 tabs 11/08/25 Rx carvedilol 25 mg tablet 25 mg PO BID 30 days #60 tabs 11/08/25 Rx furosemide 40 mg tablet 40 mg PO DAILY 30 days #30 tabs 11/08/25 Rx New Prescriptions to Start Prescriptions: atorvastatin Horace Keller carvedilol Horace Keller furosemide Horace Keller Allergies Allergy/AdvReac Type Severity Reaction Status Date / Time ciprofloxacin Allergy Verified 10/25/23 14:01 Discharge Plan Disposition Patient Disposition: Home, Self-Care Condition: Good Follow up Plan Follow up with: Pallavi Felix APRN [Nurse Practitioner, Cardiology] - 11/20/25 2:45 pm Tayla Jeter [Primary Care Provider, Medical] - 11/13/25 10:30 am Prescriptions/Medication Reconciliation: New furosemide 40 mg Tablet 40 mg PO DAILY 30 Days Qty: 30 0RF atorvastatin 40 mg Tablet 40 mg PO HS 30 Days Qty: 30 0RF carvedilol 25 mg Tablet 25 mg PO BID 30 Days Qty: 60 0RF Continued aspirin 81 MG tablet,delayed release (DR/EC) 81 mg PO DAILY clonazepam 0.5 MG tablet 0.5 mg PO TID lisinopril 20 mg tablet 20 mg PO BID Qty: 60 0RF Discontinued carvedilol 12.5 MG tablet 12.5 mg PO BID Qty: 60 0RF Problem Reconciliation Problems Reviewed?: Yes Patient Discharge Instructions ACTIVITY: Continue current activity DIET: continue same diet Patient Instructions: DI for Syncope in Adults (Fainting), High Blood Pressure (Alternative Therapy), High Cholesterol, DI for High Blood Pressure Print Language: Kyrgyz Providers Primary Care Provider: Tayla Jeter Admit Provider: Horace Keller Attending Provider: Horace Keller
--- NOTE | 2025-11-09 09:26 | CARE MANAGER ---
Unable to reach patient via phone to discuss recent discharge, left ronn JOHNSON.
--- NOTE | 2025-11-11 07:07 | PC.NURSE ---
I tried to go into the MAR to waste lorazepam and I could not get back into orders for lorazepam and it was not in the MAR. Venita Alberto RN verified waste and dose given.
== END 2025-11-08 17:05 | disposition home or self-care (01) ==
LOC: ER 20:40 → ICU 20:48
PROVIDERS: Nurse Practitioner Acute Care; Physician Assistant; Admitting Provider Internal Medicine Adolescent Medicine; Emergency Provider Student in an Organized Health Care Education/Training Program; PCP Family Medicine; Visit Provider Internal Medicine Adolescent Medicine
DX: I16.0 Hypertensive urgency (principal); R55 Syncope and collapse; E66.01 Morbid (severe) obesity due to excess calories; Z68.41 Body mass index [BMI] 40.0-44.9, adult; F41.1 Generalized anxiety disorder; I70.1 Atherosclerosis of renal artery; I25.118 Atherosclerotic heart disease of native coronary artery with other forms of angina pectoris; I10 Essential (primary) hypertension; E78.2 Mixed hyperlipidemia; R01.1 Cardiac murmur, unspecified; Z90.710 Acquired absence of both cervix and uterus; Z88.1 Allergy status to other antibiotic agents; Z79.899 Other long term (current) drug therapy; Z79.82 Long term (current) use of aspirin; I44.7 Left bundle-branch block, unspecified
CPT/HCPCS: 36415; 70450; 70496; 70498; 71045; 71275; 80048; 80053; 81001; 82803; 83735; 83880; 84100; 84439; 84443; 84484; 85025; 85610; 86803; 87086; 87389; 93005; 93306; 93976; 97166; 99285; G0378; J0360; J2060; Q9967

== ENCOUNTER 2025-11-27 15:41 | Observation (INO) | payer MEDICARE, SELFPAY ==
[2025-11-27 15:41] VITALS: BP 221/113; PULSE 86; RESP 18; TEMP 36.8; O2SAT 97; BMI 43.2
--- OUTSIDE RECORDS SUMMARY | 2025-11-27 16:01 | XMS_ITS | Clinical Summary ---
Author Organization [facility] Address [address] [place] [address] Care Team Providers Care Sole Buffer Name Role Phone Tayla Jeter Primary Care Provider [phone] Allergies Active Allergy Reactions Criticality Noted Date Comments Ciprofloxacin Hcl Other (See Comments) 06/03/20 16 Pain in legs Medications clonazePAM (KlonoPIN) 0.5 MG tablet Take 0.5 mg by mouth Every 8 (Eight) Hours As Needed. Active lisinopril (PRINIVIL,ZESTR IL) 20 MG tablet Take 20 mg by mouth Daily. Active carvedilol (COREG) 12.5 MG tablet Take 1 tablet by mouth 2 (Two) Times a Day. 60 tablet 1 10/21/2020 Active fluticasone (FLONASE) 50 MCG/ACT nasal spray 1 spray by Each Nare route As Needed. 01/20/2021 Active cloNIDine (Catapres) 0.1 MG tablet Take 1 tablet by mouth Daily As Needed for High Blood Pressure (as needed for SBP>170 mmHg). 90 tablet 04/13/2022 Active hydroCHLOROthia zide (MICROZIDE) 12.5 MG capsule Take 1 capsule by mouth Daily. 90 capsule 2 04/13/2022 Active Active Problems Problem Noted Date Diagnosed Date History of pulmonary embolus (PE) 04/13/2022 History of DVT (deep vein thrombosis) 03/10/2022 Acute UTI (urinary tract infection) 03/10/2022 Elevated troponin 03/10/2022 Acute saddle pulmonary embol ism, unspecified whether acute cor pulmonale present 03/10/2022 Paroxysmal atrial tachycardia 10/01/2017 Overview (10/01/2017): Diagnosed 09/29/17 Chads VASC 4 Essential hypertension 06/04/2016 History of tobacco abuse 06/04/2016 LBBB (left bundle branch block) 06/04/2016 Syncope 06/03/2016 Mitral valve prolapse Resolved Problems Problem Noted Date Diagnosed Date Resolved Date Acute saddle pulmonary embolism 03/10/2022 04/13/2022 Elevated troponin 10/21/2020 10/21/2020 Immunizations Immunization Administration Dates Next Due Td (TDVAX) 08/10/2012 Family History Medical History Relation Name Comments Hypertension Brother Cancer Father lung cancer Hypertension Mother Heart attack Paternal Uncle Heart disease Sister 2 Hypertension Sister 2 Obesity Sister 2 Relation Name Status Comments Brother Alive Father (Age age 76) Mother (Age age 76) Paternal Uncle Sister 2 Alive Social History Tobacco Use Types Packs/Day Years Used Date Smoking Tobacco: Former Cigarettes 0.3 10 2 2016 Smokeless Tobacco: Never Alcohol Use Standard Drinks/Week Comments No 0 (1 standard drink = 0.6 oz pur e alcohol) AUDIT-C Answer Date Recorded Q1: How often do you have a drink containing alcohol? Never 03/11/2022 Q2: How many drinks containi ng alcohol do you have on a typical day when you are drinking? Patient does not drink Q3: How often do you have si x or more drinks on one occasion? Never 03/11/2022 Abuse Screen Answer Date Recorded Unsafe at Home or Work/School Not on file Feels Threatened by Someone? Not on file 09/2023 Does Anyone Keep You from Co ntacting Others or Doint Things Outside the Home? Not on file 09/08/2023 Physical Sign of Abuse Present Not on file 1 Housing Stability Answer Date Recorded Current Living Arrangements Not on file 08/29 Potentially Unsafe Housing Conditions Not on dany e 09/08/2023 Family and Community Support Answer Jeferson e Recorded Help with Day-to-Day Activities Not on file 09/08/2023 Lonely or Isolated Not on file 09/08/2023 Employment Answer Date Recorded Do you want help finding or keeping work or a merlyn b? Not on file 09/08/2023 Disabilities Answer Date Recorded Concentrating, Remembering, or Making Decisions Difficulty Not on file 09/08/2023 Doing Errands Independently Difficulty Not on fi le 09/08/2023 Education Answer Date Recorded Help with school or training? Not on file Preferred Language Not on file 09/08/2023 Comments No Sex and Gender Information Value Date Recorded Sex Assigned at Not on file Legal Sex Female 8:59 PM EDT Gender Identity Not on file Sexual Orientation Not on file Last Filed Vital Signs Vital Sign Reading Time Taken Comments Blood Pressure 186/104 04/13/2022 1:12 PM EDT Pulse 81 04/13/2022 1:12 PM EDT Temperature 36.6 C (97.8 F) 03/14/2022 4:23 AM EDT Respiratory Rate 18 03/14/2022 8:16 AM EDT Oxygen Saturation 97% 04/13/2022 1:12 PM EDT Inhaled Oxygen Concentration - - Weight 115 kg (254 lb) 04/13/2022 1:12 PM EDT Height 165.1 cm (5' 5 ) 04/13/2022 1:12 PM EDT Body Mass Index 42.27 04/13/2022 1:12 PM EDT Plan of Treatment Health Maintenance Due Date Last Done Comments DXA SCAN 1945 COLOGUARD 1988 COLON CANCER SCREENING 5 YEAR SIGMOIDOSCOPY 1988 COLONOSCOPY [address]ER SCREENING [address] COLONOGRAPHY 1988 FECAL OCCULT BLOOD TEST 1988 FIT Testing (1 year) 1988 Pneumococcal Vaccine 50+ (1 of 1 - PCV) 1993 ZOSTER VACCINE (1 of 2) 1993 TDAP/TD VACCINES (1 - Tdap) 08/11/2012 08/10/2012 ANNUAL PHYSICAL 05/07/2017 RSV Vaccine - Adults (1 - 1-dose 75+ series) 9 INFLUENZA VACCINE 06/29/2025 COVID-19 Vaccine (1 - 2023- season) 2025 Insurance [employer] Advance Directives * CPR (Attempt to Resuscitate) (Latest Code Status on File) Date Activated Date Inactivated Comments 03/10/2022 10:17 PM 03/14/2022 6:57 PM Question Answer Comments Code Status (Patient has no pulse and is not breathing): CPR (Attempt to Resuscitate) Medical Interventions (Patie nt has pulse or is breathing): Full Support Level Of Support Discussed With: Patient * CPR (Attempt to Resuscitate) Date Activated Date Inactivated Comments 10/21/2020 1:14 AM 10/21/2020 2:58 PM Question Answer Comments Code Status (Patient has no pulse and is not breathing): CPR (Attempt to Resuscitate) Medical Interventions (Patie nt has pulse or is breathing): Full Level Of Support Discussed With: Patient * Full Code Date Activated Date Inactivated Comments 06/03/2016 11:24 PM 06/05/2016 12:57 PM Care Teams Sole Buffer Relationship Specialty Start Date End Date Tayla Jeter DO [address] [place] [id number] PCP - General Family Medicine 11/11/20
--- OUTSIDE RECORDS SUMMARY | 2025-11-27 16:01 | XMS_ITS | Clinical Summary ---
Author Organization [facility] Address [address] [place] [address] Care Team Providers Care Parts Sales Manager Name Role Phone Unavailable Primary Care Provider Unavailabl e Immunizations Immunization Administration Dates Next Due TD (adult), 2 Lf tetanus tox oid, preservative free, adsorbed 08/10/2012 Family History Medical History Relation Name Comments Breast cancer Mother's Sister Relation Name Status Comments Mother's Sister Social History Tobacco Use Types Packs/Day Years Used Date Smoking Tobacco: Every Day Comments Unknown Sex and Gender Information Value Date Recorded Sex Assigned at Not on file Legal Sex Female 8:02 PM EDT Gender Identity Not on file Sexual Orientation Not on file Last Filed Vital Signs Vital Sign Reading Time Taken Comments Blood Pressure 182/90 03/09/2018 3:37 PM EDT Pulse 79 03/09/2018 3:37 PM EDT Temperature - - Respiratory Rate - - Oxygen Saturation - - Inhaled Oxygen Concentration - - Weight 110 kg (242 lb 8.1 oz) 03/09/2018 3:37 PM EDT Height 165.1 cm (5' 5 ) 03/09/2018 3:37 PM EDT Body Mass Index 40.36 03/09/2018 3:37 PM EDT Plan of Treatment Not on file
--- NOTE | 2025-11-27 16:03 | CA_ITS ---
FINAL REPORT CLINICAL HISTORY: LT LEG SWELLING X 3 DAYS,NKI,PAIN/TENDERNESS,PT ON ASA FINDINGS: DUPLEX VENOUS SONOGRAPHY OF THE LEFT LOWER EXTREMITY Multiple transverse and longitudinal scans were performed of the femoropopliteal deep venous system, with augmentation and compression maneuvers. There is echogenic material in the distal femoral vein and popliteal vein that is noncompressible consistent with DVT. The remaining visualized veins are patent. IMPRESSION: DVT involving the distal femoral vein and popliteal vein. Reviewed, Interpreted and Dictated by Dianne Aguirre MD Transcribed by Petrona Reynolds Authenticated and [facility]
--- NOTE | 2025-11-27 16:04 | XR_ITS ---
PROCEDURE INFORMATION: Exam: XR Chest Exam date and time: 11/27/2025 4:44 PM Age: 79 years old Clinical indication: Dyspnea TECHNIQUE: Imaging protocol: Radiologic exam of the chest. Views: 1 view. COMPARISON: CR XR CHEST PORTABLE 11/07/2025 6:12 PM FINDINGS: Lungs: Unremarkable. No consolidation. Pleural spaces: Unremarkable. No pleural effusion. No pneumothorax. Heart/Mediastinum: Unremarkable. No cardiomegaly. Bones/joints: Unremarkable. IMPRESSION: No acute findings.
--- NOTE | 2025-11-27 16:08 | ED_ITS ---
Discharge Plan Disposition Chief Complaint: PAIN Prescriptions Prescriptions: No Action aspirin 81 MG tablet,delayed release (DR/EC) 81 mg PO DAILY furosemide 40 mg Tablet 40 mg PO DAILY 30 Days Qty: 30 0RF atorvastatin 40 mg Tablet 40 mg PO HS 30 Days Qty: 30 0RF carvedilol 25 mg Tablet 25 mg PO BID 30 Days Qty: 60 0RF clonazepam 0.5 MG tablet 0.5 mg PO TID lisinopril 20 mg tablet 20 mg PO BID Qty: 60 0RF Referrals Follow up/Referrals: Tayla Jeter [Primary Care Provider, Medical] - See instructions Clinical Impressions Clinical Impression: DVT (deep venous thrombosis), Left leg swelling, Hypertension, Anxiety Print Language Print Language: Vietnamese Discharge ED Provider: Salvatore Manzanares General Adult HPI General Chief complaint: PAIN Stated complaint: Left leg swollen,no injury Time Seen by Provider: 11/27/25 15:47 History of Present Illness HPI narrative: Patient is an 79-year-old history of severe anxiety renal artery stenosis and uncontrolled hypertension presents today with left lower extremity swelling. States that she chronically for years has had unilateral ankle swelling in the left lower extremities never had swelling up through her leg. She was recently admitted for hypertensive emergency/urgency and was in t ultimately was treated for her anxiety was found to not have any significant endorgan damage and was discharged home she is on carvedilol hydrochlorothiazide and lisinopril. Is very tearful and concerned that something is really wrong with her but states this is her baseline that she has been this way her whole life. She had a renal artery ultrasound as well as a echo this recent hospitalization without any significant abnormalities. Related Data Home Medications ?Medication ?Instructions ?Recorded ?Confirmed clonazepam 0.5 mg tablet 0.5 mg PO TID 06/14/2211/08 aspirin 81 mg tablet,delayed 81 mg PO DAILY 11/08/25 1 01/08/25 release Previous Rx's ?Medication ?Instructions ?Recorded lisinopril 20 mg tablet 20 mg PO BID Hypertension #6 0 tabs 01/13/23 atorvastatin 40 mg tablet 40 mg PO HS 30 days #30 tabs 11/08/25 carvedilol 25 mg tablet 25 mg PO BID 30 days #60 tab s 11/08/25 furosemide 40 mg tablet 40 mg PO DAILY 30 days #30 t abs 11/08/25 Allergies Allergy/AdvReac Type Severity Reaction Status Date / Time ciprofloxacin Allergy Verified 10/25/23 14:01 [facility] Disclaimer: The information contained in this section may have been updated after the patient was seen, as this information can be updated by other users. Medical History (Updated 11/27/25 @ 18:29 by Salvatore Manzanares MD) Heart murmur Cataract Generalized anxiety disorder Chronically on benzodiazepine therapy Takotsubo cardiomyopathy Hyperlipidemia Diastolic dysfunction Elevated left ventricular end-diastolic pressure (LVEDP) Renal artery stenosis CAD (coronary artery disease) HTN (hypertension) History of DVT of lower extremity Left bundle branch block (LBBB) Surgical History (Updated 11/07/25 @ 22:22 by Sinai Dudley RN) History of hysterectomy History of left heart catheterization Family History Mother Hypertension Father Throat cancer Hypertension Social History Smoking Status: Never smoker alcohol intake: never current occupational status: retired Travel in the last 8 weeks?: Inside the [place] household members: children Have you lived/traveled outside [place] in past 30 days?: No Contact w/someone who lives/traveled outside [place] past 30 days?: No Exposure to someone with infectious disease in past 14 days?: No Do you have a fever (greater than 100.4 F or 38 C)?: No Have you tested positive for COVID-19?: No Exposed to someone with COVID-19 in past 14 days?: No Do you have a sore throat?: No Do you have a cough?: No Do you have any weakness?: No Do you have any diarrhea?: No Are you experiencing any unusual bleeding?: No Do you have any muscle aches/pain?: No Do you have any abdominal pain?: No Are you experiencing loss of taste or smell?: No Other Medical History Have you received the Flu Vaccine for this season: No Have you received the Pneumonia Vaccine: No ROS Obtained: Yes All systems reviewed & no additional complaints except as documented Physical Exam General General appearance: anxious (Tearful) Respiratory Respiratory exam: Present normal lung sounds bilaterally Cardiovascular Cardiovascular exam: Present regular rate and normal rhythm Extremities Exam Extremities exam: Present other (Unilateral left lower extremity edema and swelling) Neurological Exam Neurological exam: Present alert and oriented X3 Medical Decision Making Medical Records Screening: Per USPSTF and CDC recommendations, given the prevalence of disease in our region, it is our hospital?s policy to screen for HIV and viral Hepatitis for all patients aged 18 and over and those with ongoing risk factors. Darrick Inquiry Pt receiving controlled substance: No Vital Signs: 11/27/25 15:41 Temperature 98.2 F Temperature Source Oral Pulse Rate [Right Radial] 86 Respiratory Rate 18 Blood Pressure [Right Arm] 221/113 H Blood Pressure Mean [Right Arm] 149 Blood Pressure Source [Right Arm] Automatic Cuff Blood Pressure Position [Right Arm] Sitting 02 Sat by Pulse Oximetry 97 Oxygen Delivery Method Room Air Lab Data Lab results reviewed: Yes I reviewed the patient's lab results. Lab Results 11/27/25 16:38: Urine Color Yellow, Urine Appearance Clear, Urine pH 6.5, Ur Specific [place] 1.010, Urine Protein Trace, Urine Glucose (UA) Negative, Urine Ketones Negative, Urine Blood Negative, Urine Nitrate Negative, Urine Bilirubin Negative, Urine Urobilinogen 0.2, Ur Leukocyte Esterase Negative, Urine RBC 5- 10, Urine WBC 5-10, Ur Squamous Epith Cells 20-50, Urine Bacteria 4+, Urine Yeast Occasional 11/27/25 17:00: WBC 8.8, RBC 4.44, Hgb 14.0, Hct 41.9, MCV 94.4, MCH 31.5 H, MCHC 33.4, RDW 12.8, Plt Count 168, MPV 9.1, Neut % (Auto) 67.9, Lymph % (Auto) 23.6, [place] % (Auto) 6.7, Eos % (Auto) 1.4, Baso % (Auto) 0.2, Neut # (Auto) 6.0, Lymph # (Auto) 2.1, [place] # (Auto) 0.6, Eos # (Auto) 0.1, Baso # (Auto) 0.0, PT 10.5, INR 0.94, D-Dimer 4.46 H, Sodium 137, Potassium 5.7 H, Chloride 104, Carbon Dioxide 26, Anion Gap 12.7, BUN 18 H, Creatinine 1.00, Estimated Creat Clear 40, Estimated GFR 53 L, Est GFR ( Amer) 64, Glucose 132 H, Calcium 9.5, Total Bilirubin 1.6 H, AST 48 H, ALT 20, Alkaline Phosphatase 57, Troponin I 0.01, NT-Pro-B Natriuret Pep 159, Total Protein 7.8, Albumin 4.9, Globulin 2.9, Albumin/Globulin Ratio 1.7, TSH 3.65 11/27/25 17:00 11/27/25 17:00 Orders (Tests/Meds): ED MEDICATIONS Generic Name Dose Route Start Last Admin Trade Name Freq PRN Reason Stop Dose Admin Enoxaparin Sodium 120 mg 11/27/25 18:30 Enoxaparin 100mg/Ml Syringe 1 mg/kg (120 mg) 12/27/25 18:29 SUBCUT Q12H LINDA Sodium Chloride 10 ml 11/27/25 16:03 Sodium Chloride 0.9% 10ml Vial IV 12/27/25 16:02 NEEDED PRN to Dilute Lorazepam inj Discontinued Medications Generic Name Dose Route Start Last Admin Trade Name Freq PRN Reason Stop Dose Admin Lorazepam 1 mg 11/27/25 16:03 11/27/25 17:03 Lorazepam 2mg/Ml Vial IV 11/27/25 16:04 1 mg ONCE ONE Administration ORDERS Category Date Time Status CXR --portable [XR chest portable] Stat Exams 11/27/25 16:04 Completed BNP [NT Pro Brain Natriuretic Pep.] Stat Lab 11/27/25 17:00 Completed CBC w/Auto Diff [Complete Blood Count Auto Diff] Stat Lab 11/27/25 17:00 Completed CMP [Comprehensive Metabolic Panel] Stat Lab 11/27/25 17:00 Completed D-Dimer Stat Lab 11/27/25 17:00 Completed PT INR [Prothrombin Time INR] Stat Lab 11/27/25 17:00 Completed TSH [Thyroid Stimulating Hormone] Stat Lab 11/27/25 17:00 Completed Trop I [Troponin I] Stat Lab 11/27/25 17:00 Completed Troponin I Q3H Lab 11/27/25 19:15 Ordered Troponin I Q3H Lab 11/27/25 22:15 Ordered UA [Urinalysis and Microscopic] Stat Lab 11/27/25 16:38 Completed Urine Culture Stat Micro 11/27/25 16:38 Received CA venous doppler LE LT Stat Y 11/27/25 16:03 Completed Medical Decision Narrative: 79-year-old with above history and physical differential includes renal failure worsening renal artery stenosis but she recently had a renal duplex which we only showed 60% stenosis, heart failure, cirrhosis, DVT etc. Will get basic blood work administer IV Ativan for her anxiety which likely will bring down her hypertension and reassess. Unlikely that she has acute endorgan damage without remains on the possibility we will hold off on IV antihypertensive medications at the moment. Reassessment 6:39 PM patient is positive for DVT in her distal femoral vein as well as popliteal vein. Patient also has significant hypertensive urgency/emergency. No definitive endorgan damage but she will need to be started on anticoagulant she is very concerned about going home still very anxious. Ultimately we decided to keep the patient in the hospital for anticoagulation blood pressure management and to make sure she can get her medications filled because of the issues with prior authorization so we have sometimes especially on holiday weekends Critical Care Critical Care Time Critical Care Time: Yes Attestation: On 11/27/25, the high probability of a clinically significant, sudden or life threatening deterioration of the following system(s) required my full and direct attention, intervention and personal management. The time I documented below is in addition to time spent performing reported procedures but includes the following listed in this critical care notation. Total Time Total Critical Care Time: 35
--- NOTE | 2025-11-27 16:28 | PC.NURSE ---
[id number]- patient to ultrasound at this time with US tech via wheelchair.
--- NOTE | 2025-11-27 16:33 | PC.NURSE ---
patient back from US at this time.
--- NOTE | 2025-11-27 16:35 | ECG_ITS ---
APPROVED REPORT Exam: Resting ECG HR:79 bpm ECG Measurements Heart Rate 79 AXES AZ 193 P 49 QRSd 145 QRS -66 QT 398 T 57 QTc 433 Conclusion SINUS RHYTHM LEFT AXIS DEVIATION [QRS AXIS < -30] INTRAVENTRICULAR CONDUCTION DELAY [130+ ms QRS DURATION] ABNORMAL ECG UNCONFIRMED REPORT Electronically signed by : Horace Manzanares, 11/27/2025 23:26:14
[2025-11-27 16:48] LABS: Microscopic, Urine URINE MICROSCOPIC (MICROSCOPIC)
[2025-11-27 16:56] LABS: Bilirubin,Urine Negative (Negative); Color,Urine YELLOW (Yellow); Glucose,Urine (UA) Negative (Negative); Ketones,Urine Negative (Negative); Leukocyte Esterase,Urine Negative (Negative); PH,Urine 6.5 (5.0-8.5); Protein,Urine TRACE (Negative); Specific Gravity, Urine 1.010 (1.005-1.030); Urobilinogen,Urine 0.2 EU/dl (0.2)
[2025-11-27] MEDS: LORazepam 2MG/ML VIAL 1 MG IV (17:03)
[2025-11-27 17:09] LABS: Hematocrit 41.9 % (37.0-47.0); Hemoglobin 14.0 g/dL (12.2-16.2); Immature Granulocytes % 0.2 %; Mean Corpuscular HGB Conc 33.4 g/dL (31.8-35.4); Mean Corpuscular Hemoglobin 31.5 pg (27.0-31.2); Mean Corpuscular Volume 94.4 fl (81-99); Nucleated Red Blood Cells % 0 %; Platelet Count 168 K/mm3 (142-424); Red Blood Count 4.44 M/mm3 (4.20-5.40); Red Cell Distribution Width-SD 43.6 fL; White Blood Count 8.8 K/mm3 (4.8-10.8)
[2025-11-27 17:20] LABS: INR 0.94 (0.9-1.1); Prothrombin Time 10.5 seconds (10.1-12.5)
[2025-11-27 17:21] LABS: Alanine Aminotransferase 20 U/L (12-78); Albumin Level 4.9 g/dl (3.5-5.0); Albumin/Globulin Ratio 1.7 (1.1-1.8); Alkaline Phosphatase 57 U/L (38-126); Anion Gap 12.7 mEq/L (5-15); Aspartate Amino Transferase 48 U/L (14-36); Bilirubin,Total 1.6 mg/dl (0.2-1.3); Blood Urea Nitrogen 18 mg/dl (7-17); Calcium 9.5 mg/dl (8.4-10.2); Carbon Dioxide 26 mmol/L (22.0-30.0); Chloride 104 mmol/L (98-107); Creatinine Clearance Estimated 40 mL/min (50-200); Creatinine,Serum 1.00 mg/dl (0.52-1.04); Estimated Glomerular Filt Rate 53 ml/min (>60); GFR (African American) 64 ML/MIN (>60); Globulin 2.9 g/dL (1.3-3.2); Glucose 132 mg/dl (74-100); Potassium 5.7 mmoL/L (3.5-5.1); Sodium 137 mmol/L (136-145); Total Protein,Serum 7.8 g/dl (6.3-8.2)
[2025-11-27 17:30] LABS: Bacteria,Urine 4+ /lpf; Squamous Epithelial Cell,Urine 20-50 #/hpf (0-5)
[2025-11-27 17:34] LABS: NT Pro Brain Natriuretic Pep. 159 pg/mL (0-450)
[2025-11-27 17:35] LABS: Troponin I 0.01 ng/ml (0.00-0.034)
[2025-11-27 17:40] LABS: D-Dimer 4.46 ug/mL (0.0-0.5)
[2025-11-27 17:53] LABS: Thyroid Stimulating Hormone 3.65 uIU/mL (0.465-4.68)
--- NOTE | 2025-11-27 18:42 | PC.NURSE ---
underground supervisor contacted for bed
--- NOTE | 2025-11-27 19:28 | PC.NURSE ---
report called to Dennise WALTON at this time.
[2025-11-27 19:45] LABS: Troponin I 0.01 ng/ml (0.00-0.034)
[2025-11-27] MEDS: ENOXAPARIN 120MG/0.8ML SYRINGE 120 MG SUBCUT (19:59)
[2025-11-27 20:00] VITALS: PULSE 95
[2025-11-27 20:21] VITALS: BP 221/113; PULSE 86; RESP 18; TEMP 36.8; O2SAT 97
[2025-11-27 20:33] VITALS: BP 199/97; PULSE 76; RESP 20; TEMP 36.4; O2SAT 98
[2025-11-27] MEDS: CARVEDILOL 25MG TABLET 12.5 MG PO (22:05)
[2025-11-27] MEDS: HYDRALAZINE HCL 25MG TABLET 25 MG PO (22:05)
[2025-11-27] MEDS: LISINOPRIL 20MG TABLET 40 MG PO (22:05)
--- NOTE | 2025-11-27 22:10 | PC.NURSE ---
154- this RN tried to hook patient up to vitals machine for an initial set of vitals and patient initially refused a BP reading. patient stated that she was not doing it because she knows its going to be high . This RN educated and explained to the patient that it was important we got an initial set of vitals to understand what her baseline is, patient agreeable at this time for vital sign assessment. 170- tried to obtain an updated set of vitals, patient refused, MD notified. 1856- tried once again to obtain another set of vitals, patient refused. aware. patient being admitted upstairs to room 209. 1927- report called to ANTON Bowden, receiving nurse notified of refusal for vitals.
[2025-11-27 23:07] LABS: Troponin I 0.04 ng/ml (0.00-0.034)
--- NOTE | 2025-11-27 23:42 | P.HP_ITS ---
<Statement entered by Horace Keller MD - 11/28/25 13:52> Rounded on patient after nurse practitioner. Personally examined and interviewed patient. Agree with exam findings and care plan as documented. History of Present Illness *Admission Date: 11/27/25 *Reason for visit:: Left leg pain *History of present illness: Amberly Rodriguez is an 79-year-old female with a past medical history significant for hypertension, hyperlipidemia, generalized anxiety disorder with chronic benzodiazepine therapy, obesity, CAD and diastolic dysfunction. Presents to [facility] due to left lower extremity pain and swelling. Patient reports noticing symptoms a few days ago and symptoms have since become worse. States prior to symptoms she was out with family running errands and ultimately waited in the car for about 7 hours without getting up/walking/standing. Also ED workup noted significantly elevated blood pressure (220 systolic). Patient reports anxiety at baseline and coming to the hospital has exacerbated symptoms. Of note patient was recently hospitalized with hypertensive urgency and discharged with BP medication adjustments. Patient states the new regime was then changed by her PCP as she was not tolerating the increased dose of Carvedilol. Patient currently reports taking Carvedilol 12.5 twice daily, Lisinopril 40 mg twice daily and Hydralazine 25 mg twice daily. States initial improvement with antihypertensive regime change. Noted systolic blood pressure in the 120 range and diastolic in the 80-70s. Reports BP increase after noticing left lower leg swelling and pain. She also endorsed recent stress-induced circumstances with family, states this has complicated her underlying anxiety. Reports compliance with home medication regimen, with exception of atorvastatin. States not taking statin by personal choice and noted furosemide was discontinued by her PCP with recent BP med adjustments. Denies chest pain, nausea, vomiting, abdominal pain, trauma, shortness of breath. Initial ED workup included laboratory studies and imaging. Significant laboratory finding D-dimer 4.46, potassium 5.7, GFR 53, total bilirubin 1.6, AST 48, UA with 4+ bacteria but noted squamous epithelial cells 20-50, leukocyte Estrace negative, nitrate negative. Imaging study included Doppler venous study which I personally reviewed, showing->DVT involving the distal femoral vein and popliteal vein. Chest x-ray I personally reviewed which was without any acute finding. Upon assessment of patient at bedside she is notably anxious, on room air, sitting on edge of bed. Reports anxiety improved since receiving home dose anxiety medication. [facility] Disclaimer: The information contained in this section may have been updated after the patient was seen, as this information can be updated by other users. Medical History Heart murmur Cataract Generalized anxiety disorder Chronically on benzodiazepine therapy [place] cardiomyopathy Hyperlipidemia Diastolic dysfunction Elevated left ventricular end-diastolic pressure (LVEDP) Renal artery stenosis CAD (coronary artery disease) HTN (hypertension) History of DVT of lower extremity Left bundle branch block (LBBB) Surgical History History of hysterectomy History of left heart catheterization Family History Mother Hypertension Father Throat cancer Hypertension Social History Smoking Status: Never smoker alcohol intake: never current occupational status: retired Travel in the last 8 weeks?: Inside the [place] household members: children Have you lived/traveled outside [place] in past 30 days?: No Contact w/someone who lives/traveled outside [place] past 30 days?: No Exposure to someone with infectious disease in past 14 days?: No Do you have a fever (greater than 100.4 F or 38 C)?: No Have you tested positive for COVID-19?: No Exposed to someone with COVID-19 in past 14 days?: No Do you have a sore throat?: No Do you have a cough?: No Do you have any weakness?: No Do you have any diarrhea?: No Are you experiencing any unusual bleeding?: No Do you have any muscle aches/pain?: No Do you have any abdominal pain?: No Are you experiencing loss of taste or smell?: No Other Medical History Have you received the Flu Vaccine for this season: No Have you received the Pneumonia Vaccine: No Review of Systems Review of Systems Review of systems:: pertinent systems reviewed and negative unless documented below Constitutional Constitutional: Reports system reviewed and no additional complaints, except as documented and Reports as per HPI Eyes Eyes: Reports system reviewed and no additional complaints, except as documented and Reports as per HPI ENT Ears, Nose, Mouth, and Throat: Reports system reviewed and no additional complaints, except as documented and Reports as per HPI *Cardiovascular Cardiovascular: Reports as per HPI and Reports claudication (Left leg pain and swelling ) *Respiratory Respiratory: Reports system reviewed and no additional complaints, except as documented and Reports as per HPI *Gastrointestinal Gastrointestinal: Reports system reviewed and no additional complaints, except as documented and Reports as per HPI *Genitourinary Genitourinary: Reports system reviewed and no additional complaints, except as documented and Reports as per HPI *Musculoskeletal Musculoskeletal: Reports system reviewed and no additional complaints, except as documented and Reports as per HPI Integumentary/Breasts Skin/Breast: Reports system reviewed and no additional complaints, except as documented and Reports as per HPI *Neurologic Neurologic: Reports system reviewed and no additional complaints, except as documented and Reports as per HPI Psychiatric Psychiatric: Reports as per HPI and Reports anxiety (Chronic ) Endocrine Endocrine: Reports system reviewed and no additional complaints, except as documented and Reports as per HPI Hematologic/Lymphatic Hematologic/Lymphatic: Reports system reviewed and no additional complaints, except as documented and Reports as per HPI Allergic/Immunologic Allergic/Immunologic: Reports system reviewed and no additional complaints, except as documented and Reports as per HPI Meds Home Medications and Allergies Home Medications ?Medication ?Instructions ?Recorded ?Confirmed ?Type clonazepam 0.5 mg tablet 0.5 mg PO TID 06/14/2211/27 History aspirin 81 mg tablet,delayed 81 mg PO DAILY 11/08/25 1 History release atorvastatin 40 mg tablet 40 mg PO HS 30 days #30 tabs 11/08/25 11/27/25 Rx carvedilol 25 mg tablet 12.5 mg PO BID 11/27/2510/31 History escitalopram oxalate 10 mg tablet 10 mg PO DAILY 11/2711/27/25 History hydralazine 25 mg tablet 25 mg PO BID 11/27/25 History lisinopril 20 mg tablet 40 mg PO BID Hypertension 11/27/25 History New Prescriptions to Start Prescriptions: Allergies Allergy/AdvReac Type Severity Reaction Status Date / Time ciprofloxacin Allergy Verified 10/25/23 14:01 Exam Data for Last 24 hours Vital signs and Labs for Last 24 Hours: Temp Pulse Resp BP Pulse Ox O2 Del Method 97.5 F L 76 20 199/97 H 98 Room Air 11/27/25 20:33 11/27/25 20:33 11/27/25 20:33 11/27/25 20:33 11/27/25 20:33 11/27/25 22:59 Laboratory Results - last 24 hr 11/27/25 16:38: Urine Color Yellow, Urine Appearance Clear, Urine pH 6.5, Ur Specific Etters 1.010, Urine Protein Trace, Urine Glucose (UA) Negative, Urine Ketones Negative, Urine Blood Negative, Urine Nitrate Negative, Urine Bilirubin Negative, Urine Urobilinogen 0.2, Ur Leukocyte Esterase Negative, Urine RBC 5- 10, Urine WBC 5-10, Ur Squamous Epith Cells 20-50, Urine Bacteria 4+, Urine Yeast Occasional 11/27/25 17:00: WBC 8.8, RBC 4.44, Hgb 14.0, Hct 41.9, MCV 94.4, MCH 31.5 H, MCHC 33.4, RDW 12.8, Plt Count 168, MPV 9.1, Neut % (Auto) 67.9, Lymph % (Auto) 23.6, Pope % (Auto) 6.7, Eos % (Auto) 1.4, Baso % (Auto) 0.2, Neut # (Auto) 6.0, Lymph # (Auto) 2.1, Pope # (Auto) 0.6, Eos # (Auto) 0.1, Baso # (Auto) 0.0, PT 10.5, INR 0.94, D-Dimer 4.46 H, Sodium 137, Potassium 5.7 H, Chloride 104, Carbon Dioxide 26, Anion Gap 12.7, BUN 18 H, Creatinine 1.00, Estimated Creat Clear 40, Estimated GFR 53 L, Est GFR ( Amer) 64, Glucose 132 H, Calcium 9.5, Total Bilirubin 1.6 H, AST 48 H, ALT 20, Alkaline Phosphatase 57, Troponin I 0.01, NT-Pro-B Natriuret Pep 159, Total Protein 7.8, Albumin 4.9, Globulin 2.9, Albumin/Globulin Ratio 1.7, TSH 3.65 11/27/25 19:10: Troponin I 0.01 11/27/25 22:33: Troponin I 0.04 H I & O for Last 24 hours: Intake & Output 11/24/25 11/25/25 11/26/25 11/27/25 23:59 23:59 23:59 23:59 Weight 117.934 kg Constitutional Constitutional: no acute distress *Routine HEENT Exam Head: Present normocephalic and atraumatic Eye: Present EOMI, PERRL and normal accommodation ENT: Present mucous membranes moist *Routine Neck Exam Neck: Present supple and full ROM *Routine Respiratory Exam Respiratory: Present normal respiratory effort, able to speak in complete sentences and symmetric chest movement *Routine Cardiovascular Exam Cardiovascular: Present RRR, Normal S1, Normal S2 and murmur *Routine Abdominal Exam Abdominal: Present soft, normoactive bowel sounds and obese *Routine Rectal Exam Rectal:: deferred *Routine Genitalia Exam Genitalia:: deferred *Routine Extremities Exam Extremities: Present pulses intact and normal capillary refill Comments: Left lower extremity pain and swelling *Routine Skin Exam Skin: Present intact *Routine Neurological Exam Neurological: Present alert, oriented X3 and CN II-XII intact Routine Psychiatric Exam Psychiatric: Present anxious (Chronic anxiety ) Assessment and Plan *Assessment and plan (1) Deep vein thrombosis, lower left extremity: Status: Acute Qualifiers: Chronicity: acute Qualified Code(s): I82.432 - Acute embolism and thrombosis of left popliteal vein Category: Medical Code(s): I82.402 - Acute embolism and thrombosis of unspecified deep veins of left lower extremity (2) Hypertensive urgency: Status: Acute Category: Medical Code(s): I16.0 - Hypertensive urgency (3) Chronic anxiety: Status: Acute Category: Medical Code(s): F41.9 - Anxiety disorder, unspecified (4) Chronically on benzodiazepine therapy: Status: Acute Category: Medical Code(s): Z79.899 - Other exterminator (current) drug therapy (5) Diastolic dysfunction: Status: Acute Category: Medical Code(s): I51.89 - Other ill-defined heart diseases (6) CAD (coronary artery disease): Status: Acute Qualifiers: Coronary Disease-Associated Artery/Lesion type: [place] artery [place] vs. transplanted heart: [place] heart Associated angina: with other forms of angina Qualified Code(s): I25.118 - Atherosclerotic heart disease of [place] coronary artery with other forms of angina pectoris Category: Medical Code(s): I25.10 - Atherosclerotic heart disease of [place] coronary artery without angina pectoris (7) Hyperlipidemia: Status: Acute Qualifiers: Hyperlipidemia type: mixed hyperlipidemia Qualified Code(s): E78.2 - Mixed hyperlipidemia Category: Medical Code(s): E78.5 - Hyperlipidemia, unspecified (8) Renal artery stenosis: Status: Acute Category: Medical Code(s): I70.1 - Atherosclerosis of renal artery (9) Morbid obesity with BMI of 40.0-44.9, adult: Status: Chronic Category: Medical Code(s): E66.01 - Morbid (severe) obesity due to excess calories; Z68.41 - Body mass index [BMI] 40.0-44.9, adult Plan Assessment/plan: This case was discussed with the emergency department in agreements with hospital admission for further evaluation/treatment. This is an 79-year-old female with a past medical history significant for hypertension, hyperlipidemia and chronic anxiety. Presents with left lower leg pain and swelling. ED workup with findings of left lower extremity DVT, involving the distal femoral vein and popliteal vein. Hypertensive state, systolic blood pressure 220 range. Received 120mg Lovenox. Resumed home antihypertensive and anxiety medications. Continue to monitor blood pressure closely. Cardiology consult for evaluation in the morning. Trend morning labs. 1. DVT, left lower extremity: Doppler study revealing left lower extremity DVT involving the distal femoral vein and popliteal vein. Treatment dose Lovenox initiated while in the emergency department. Lovenox 120 mg BID. Hunter 5 1 tab every 4 hours as needed for mild to moderate pain. 2. Hypertensive urgency: Reports compliance with home medications-> recently admitted due to hypertensive urgency with BP medication adjustments. Patient reports that since her discharge these medications have been adjusted per her PCP. States that she was not tolerating the increased dose of carvedilol. New adjustments include carvedilol 12.5 twice daily, lisinopril 40 mg twice daily, hydralazine 25 mg twice daily-reports furosemide was discontinued per her PCP. Home regime resumed with noted improvement. Consult placed to cardiology for further evaluation, input appreciated. Closely monitor blood pressure. Cardiac monitoring. 3. Hyperlipidemia/CAD/Diastolic dysfunction: Patient currently prescribed atorvastatin 40 mg-reports she personally has not been taking the statin as she did not want to add an additional med to her regime. Became very emotional when discussing d/t her anxiety. Stated she thought she would be kicked out of the hospital for not complying. Reassured she would not, although encouraged continuation. Resume ASA 81mg daily. Echo (11/08/25) shows normal ejection fraction with mild RV dilatation-> As noted above, pt. states PCP discontinued Furosemide after readjusting antihypertensives from hospital admission. 4. Renal artery stenosis: Recent prior admit-> Cards recommended BP medication changes and renal artery duplex (11/08). Study showed less than 60% renal artery stenosis bilaterally. Echo obtained, showing normal ejection fraction with mild RV dilatation. No evidence of mitral valve prolapse. Mild MR present. Prior echocardiograms->2019 and 2021 also showed no evidence of mitral valve prolapse. Coronary artery disease is present. Underwent coronary stenting to her LAD in 2021. Recommend aspirin 81 mg daily- Resume. Cardiology recommended outpatient ischemic evaluation with cardiology follow up 1-2 weeks. Cardiology consulted. 5. Hyperkalemia: Mildly elevated potassium 5.7-> notable, trend with repeat morning lab. Continuous cardiac monitoring. 6. Chronic anxiety/chronically on benzodiazapine therapy: Resume home dose clonazepam 0.5mg every 8hr as needed for anxiety, Lexapro 10mg daily. 7. Morbid obesity with BMI 43.3: Affects all aspects of care, diet and exercise modification encouraged. Full Code DVT prophylaxsis: Lovenox (Treatment dose DVT) Cardiac diet
[2025-11-27 23:57] VITALS: BP 106/60; PULSE 63; RESP 16; TEMP 36.8; O2SAT 94
[2025-11-28] VITALS: PULSE 60
--- NOTE | 2025-11-28 03:56 | PC.NURSE ---
Alert and oriented. Arrived to floor this shift. Complained of anxiety treated per jan. Lung sounds clear. Pitting edema noted to left lower extremity, pulses intact. Room air. Monitor blood pressure throughout shift. Call light in reach.
[2025-11-28 04:00] VITALS: BP 110/61; PULSE 60; PULSE 66; RESP 16; TEMP 36.7; O2SAT 96; BMI 44.2
[2025-11-28 06:27] LABS: Hematocrit 33.8 % (37.0-47.0); Immature Granulocytes % 0.2 %; Mean Corpuscular HGB Conc 33.7 g/dL (31.8-35.4); Mean Corpuscular Hemoglobin 31.8 pg (27.0-31.2); Mean Corpuscular Volume 94.4 fl (81-99); Nucleated Red Blood Cells % 0 %; Platelet Count 134 K/mm3 (142-424); Red Blood Count 3.58 M/mm3 (4.20-5.40); Red Cell Distribution Width-SD 44.1 fL; White Blood Count 5.6 K/mm3 (4.8-10.8)
[2025-11-28 06:29] LABS: Albumin Level 3.6 g/dl (3.5-5.0); Chloride 107 mmol/L (98-107); Potassium 4.0 mmoL/L (3.5-5.1); Sodium 136 mmol/L (136-145)
[2025-11-28 06:31] LABS: Hemoglobin 11.4 g/dL (12.2-16.2)
[2025-11-28 06:32] LABS: Alanine Aminotransferase 13 U/L (12-78); Albumin/Globulin Ratio 1.9 (1.1-1.8); Alkaline Phosphatase 64 U/L (38-126); Anion Gap 8.0 mEq/L (5-15); Aspartate Amino Transferase 22 U/L (14-36); Bilirubin,Total 0.6 mg/dl (0.2-1.3); Blood Urea Nitrogen 23 mg/dl (7-17); Calcium 9.0 mg/dl (8.4-10.2); Carbon Dioxide 25 mmol/L (22.0-30.0); Creatinine Clearance Estimated 32 mL/min (50-200); Creatinine,Serum 1.20 mg/dl (0.52-1.04); Estimated Glomerular Filt Rate 43 ml/min (>60); GFR (African American) 52 ML/MIN (>60); Globulin 1.9 g/dL (1.3-3.2); Glucose 104 mg/dl (74-100); Magnesium 2.2 mg/dl (1.6-2.3); Total Protein,Serum 5.5 g/dl (6.3-8.2)
[2025-11-28 07:06] LABS: Troponin I 0.04 ng/ml (0.00-0.034)
--- NOTE | 2025-11-28 07:28 | HMH.PHAINT1 ---
Pharmacy Intervention Comments: HOME MEDICATION LIST VERIFIED USING LIST FROM OUTPATIENT PHARMACY AND PT INTERVIEW
--- NOTE | 2025-11-28 07:47 | EXP.CARD.CON ---
History of Present Illness History of Present Illness Consult date: 11/28/25 Requesting physician: Horace Keller Chief complaint: LLE edema, DVT Additional Medical History:: 1. CAD A. History of NSTEMI with AKILA to LAD, 2021 2. Renal artery stenosis A. History of bare-metal stent to the right renal artery, 2021 3. Remote history of Takotsubo cardiomyopathy in 2017 4. Prior history of left lower extremity DVT and PE with transient use of Eliquis therapy 5. Hypertension 6. Anxiety 7. Chronic left bundle branch block 8. History of medication and follow-up noncompliance 9. Obesity with BMI 44 10. Hyperlipidemia History of present illness: Amberly Rodriguez is an 79-year-old female with a past medical history significant for hypertension, hyperlipidemia, generalized anxiety disorder with chronic benzodiazepine therapy, obesity, CAD and diastolic dysfunction. Presents to [facility] due to left lower extremity pain and swelling. Patient reports noticing symptoms a few days ago and symptoms have since become worse. States prior to symptoms she was out with family running errands and ultimately waited in the car for about 7 hours without getting up/walking/standing. Also ED workup noted significantly elevated blood pressure (220 systolic). Patient reports anxiety at baseline and coming to the hospital has exacerbated symptoms. Of note patient was recently hospitalized with hypertensive urgency and discharged with BP medication adjustments. Patient states the new regime was then changed by her PCP as she was not tolerating the increased dose of Carvedilol. Patient currently reports taking Carvedilol 12.5 twice daily, Lisinopril 40 mg twice daily and Hydralazine 25 mg twice daily. States initial improvement with antihypertensive regime change. Noted systolic blood pressure in the 120 range and diastolic in the 80-70s. Reports BP increase after noticing left lower leg swelling and pain. She also endorsed recent stress-induced circumstances with family, states this has complicated her underlying anxiety. Reports compliance with home medication regimen, with exception of atorvastatin. States not taking statin by personal choice and noted furosemide was discontinued by her PCP with recent BP med adjustments. Denies chest pain, nausea, vomiting, abdominal pain, trauma, shortness of breath. Initial ED workup included laboratory studies and imaging. Significant laboratory finding D-dimer 4.46, potassium 5.7, GFR 53, total bilirubin 1.6, AST 48, UA with 4+ bacteria but noted squamous epithelial cells 20-50, leukocyte Estrace negative, nitrate negative. Imaging study included Doppler venous study which I personally reviewed, showing->DVT involving the distal femoral vein and popliteal vein. Chest x-ray I personally reviewed which was without any acute finding. Upon assessment of patient at bedside she is notably anxious, on room air, sitting on edge of bed. Reports anxiety improved since receiving home dose anxiety medication. The above per Noy Fernandez APRN for the hospitalist service. The above events confirmed with the patient. She denies any recent chest pain but has noted some shortness of breath along with the lower extremity edema recently. She does have a previous admission for DVT and PE in the past for which she was on Eliquis transiently with follow-up CAT scan showing no evidence of remaining clot at which time she was taken off the Eliquis. Patient has not been seen in our office for 2 years and has a history of medication and follow-up noncompliance. This admission troponins are mildly elevated at 0.04 with EKG showing sinus rhythm, left axis deviation and IVCD and a left bundle branch pattern which is slightly more prominent compared to 2021 and 2022 tracings. [facility] Disclaimer: The information contained in this section may have been updated after the patient was seen, as this information can be updated by other users. Medical History Heart murmur Cataract Generalized anxiety disorder Chronically on benzodiazepine therapy Takotsubo cardiomyopathy Hyperlipidemia Diastolic dysfunction Elevated left ventricular end-diastolic pressure (LVEDP) Renal artery stenosis CAD (coronary artery disease) HTN (hypertension) History of DVT of lower extremity Left bundle branch block (LBBB) Surgical History History of hysterectomy History of left heart catheterization Family History Mother Hypertension Father Throat cancer Hypertension Social History Smoking Status: Never smoker alcohol intake: never current occupational status: retired Travel in the last 8 weeks?: Inside the [place] household members: children Have you lived/traveled outside [place] in past 30 days?: No Contact w/someone who lives/traveled outside [place] past 30 days?: No Exposure to someone with infectious disease in past 14 days?: No Do you have a fever (greater than 100.4 F or 38 C)?: No Have you tested positive for COVID-19?: No Exposed to someone with COVID-19 in past 14 days?: No Do you have a sore throat?: No Do you have a cough?: No Do you have any weakness?: No Do you have any diarrhea?: No Are you experiencing any unusual bleeding?: No Do you have any muscle aches/pain?: No Do you have any abdominal pain?: No Are you experiencing loss of taste or smell?: No Review of Systems Review of Systems Review of systems:: pertinent systems reviewed and negative unless documented below *Cardiovascular Cardiovascular: Denies chest pain, Reports dyspnea, Reports dyspnea on exertion and Reports leg edema *Respiratory Respiratory: Reports dyspnea and Reports dyspnea on exertion *Neurologic Neurologic: Reports system reviewed and no additional complaints, except as documented and Reports as per HPI Exam Data for Last 24 hours Vital signs and Labs for Last 24 Hours: Temp Pulse Resp BP Pulse Ox O2 Del Method 98.0 F 66 16 110/61 96 Room Air 11/28/25 04:00 11/28/25 04:00 11/28/25 04:00 11/28/25 04:00 11/28/25 04:00 11/28/25 06:42 Laboratory Results - last 24 hr 11/27/25 16:38: Urine Color Yellow, Urine Appearance Clear, Urine pH 6.5, Ur Specific [place] 1.010, Urine Protein Trace, Urine Glucose (UA) Negative, Urine Ketones Negative, Urine Blood Negative, Urine Nitrate Negative, Urine Bilirubin Negative, Urine Urobilinogen 0.2, Ur Leukocyte Esterase Negative, Urine RBC 5-10, Urine WBC 5-10, Ur Squamous Epith Cells 20-50, Urine Bacteria 4+, Urine Yeast Occasional 11/27/25 17:00: WBC 8.8, RBC 4.44, Hgb 14.0, Hct 41.9, MCV 94.4, MCH 31.5 H, MCHC 33.4, RDW 12.8, Plt Count 168, MPV 9.1, Neut % (Auto) 67.9, Lymph % (Auto) 23.6, Benson % (Auto) 6.7, Eos % (Auto) 1.4, Baso % (Auto) 0.2, Neut # (Auto) 6.0, Lymph # (Auto) 2.1, Benson # (Auto) 0.6, Eos # (Auto) 0.1, Baso # (Auto) 0.0, PT 10.5, INR 0.94, D-Dimer 4.46 H, Sodium 137, Potassium 5.7 H, Chloride 104, Carbon Dioxide 26, Anion Gap 12.7, BUN 18 H, Creatinine 1.00, Estimated Creat Clear 40, Estimated GFR 53 L, Est GFR ( Amer) 64, Glucose 132 H, Calcium 9.5, Total Bilirubin 1.6 H, AST 48 H, ALT 20, Alkaline Phosphatase 57, Troponin I 0.01, NT-Pro-B Natriuret Pep 159, Total Protein 7.8, Albumin 4.9, Globulin 2.9, Albumin/Globulin Ratio 1.7, TSH 3.65 11/27/25 19:10: Troponin I 0.01 11/27/25 22:33: Troponin I 0.04 H 11/28/25 05:35: WBC 5.6 D, RBC 3.58 L, Hgb 11.4 L D, Hct 33.8 L, MCV 94.4, MCH 31.8 H, MCHC 33.7, RDW 12.8, Plt Count 134 L, MPV 9.5, Neut % (Auto) 59.3, Lymph % (Auto) 28.5, Benson % (Auto) 10.0 H, Eos % (Auto) 1.8, Baso % (Auto) 0.2, Neut # (Auto) 3.3, Lymph # (Auto) 1.6, Benson # (Auto) 0.6, Eos # (Auto) 0.1, Baso # (Auto) 0.0, Sodium 136, Potassium 4.0 D, Chloride 107, Carbon Dioxide 25, Anion Gap 8.0, BUN 23 H D, Creatinine 1.20 H, Estimated Creat Clear 32, Estimated GFR 43 L, Est GFR ( Amer) 52 L, Glucose 104 H D, Calcium 9.0, Magnesium 2.2, Total Bilirubin 0.6, AST 22 D, ALT 13 D, Alkaline Phosphatase 64, Troponin I 0.04 H, Total Protein 5.5 L D, Albumin 3.6 D, Globulin 1.9, Albumin/Globulin Ratio 1.9 H I & O for Last 24 hours: Intake & Output 11/25/25 11/26/25 11/27/25 11/28/25 11:59 11:59 11:59 11:59 Intake Total 300 / 300 Balance 300 / 300 Weight 265 lb 12.8 oz Constitutional Constitutional: no acute distress *Routine Respiratory Exam Respiratory: Present decreased breath sounds; Absent rhonchi or wheezes *Routine Cardiovascular Exam Cardiovascular: Present RRR and murmur; Absent gallop or rubs *Routine Extremities Exam Extremities: Present edema *Routine Neurological Exam Neurological: Present alert, oriented X3 and CN II-XII intact Meds Home Medications and Allergies Home Medications ?Medication ?Instructions ?Recorded ?Confirmed ?Type clonazepam 0.5 mg tablet 0.5 mg PO TID 06/14/22 11/27/25 History aspirin 81 mg tablet,delayed 81 mg PO DAILY 11/08/25 11/27/25 History release atorvastatin 40 mg tablet 40 mg PO HS 30 days #30 tabs 11/08/25 11/27/25 Rx carvedilol 25 mg tablet 12.5 mg PO BID 11/27/25 11/27/25 History escitalopram oxalate 10 mg tablet 10 mg PO DAILY 11/27/25 11/27/25 History hydralazine 25 mg tablet 25 mg PO BID 11/27/25 11/27/25 History lisinopril 20 mg tablet 40 mg PO BID Hypertension 11/27/25 11/27/25 History apixaban 5 mg (74 tabs) tablets in See Rx Instructions PO .COMPLEX 11/28/25 Rx a dose pack (Eliquis DVT-PE Treat #74 tabs 30D Start) New Prescriptions to Start Prescriptions: apixaban [Eliquis DVT-PE Treat 30D Start] Surekha Beckham Allergies Allergy/AdvReac Type Severity Reaction Status Date / Time ciprofloxacin Allergy Verified 10/25/23 14:01 Assessment and Plan *Assessment and plan (1) Deep vein thrombosis, lower left extremity: Status: Acute Qualifiers: Chronicity: acute Qualified Code(s): I82.432 - Acute embolism and thrombosis of left popliteal vein Category: Medical Code(s): I82.402 - Acute embolism and thrombosis of unspecified deep veins of left lower extremity (2) Elevated troponin I level: Status: Acute Category: Medical Code(s): R79.89 - Other specified abnormal findings of blood chemistry (3) CAD (coronary artery disease): Status: Acute Qualifiers: Associated angina: with other forms of angina Coronary Disease-Associated Artery/Lesion type: [place] artery [place] vs. transplanted heart: [place] heart Qualified Code(s): I25.118 - Atherosclerotic heart disease of [place] coronary artery with other forms of angina pectoris Category: Medical Code(s): I25.10 - Atherosclerotic heart disease of [place] coronary artery without angina pectoris (4) HTN (hypertension): Status: Acute Qualifiers: Hypertension type: primary hypertension Qualified Code(s): I10 - Essential (primary) hypertension Category: Medical Code(s): I10 - Essential (primary) hypertension (5) Left bundle branch block (LBBB): Status: Acute Category: Medical Code(s): I44.7 - Left bundle-branch block, unspecified (6) Hyperlipidemia: Status: Acute Qualifiers: Hyperlipidemia type: mixed hyperlipidemia Qualified Code(s): E78.2 - Mixed hyperlipidemia Category: Medical Code(s): E78.5 - Hyperlipidemia, unspecified (7) Morbid obesity with BMI of 40.0-44.9, adult: Status: Chronic Category: Medical Code(s): E66.01 - Morbid (severe) obesity due to excess calories; Z68.41 - Body mass index [BMI] 40.0-44.9, adult Plan 1. DVT left lower extremity -Recurrent but felt likely due to sedentary lifestyle and will need to be continued, possibly lifelong. -On Lovenox therapy with plans to convert to oral anticoagulation prior to discharge -Check CTA of the chest to rule out pulmonary embolus 2. Elevated troponins -Check limited echocardiogram to evaluate LVEF and RV size and function -Known coronary artery disease with prior stenting -Continue aspirin, carvedilol -Checking CTA of the lungs to rule out PE as possible source for elevated troponins -If no evidence of PE on CTA of the chest then we will need to consider left heart catheterization prior to discharge 3. Morbid obesity which complicates all aspects of care 4. Chronic left bundle branch block 5. Chronic anxiety which complicates care as well 6. Hyperglycemia -Hemoglobin A1c 5.5 this admission 7. Hypertension urgency on admission -Continue lisinopril, Coreg -Nifedipine has been added 8. Renal artery stenosis -less than 60% on recent renal duplex earlier this month. 9. Hyperlipidemia -Patient has not been taking statin therapy. -Recommend taking statin CTA of the chest to rule out PE today. If PE confirmed then treatment would be to continue oral anticoagulation. However, if no PE observed then we will need to consider cardiac catheterization prior to discharge to rule out recurrent CAD. CTA of chest negative for PE. 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 Pt's symptoms not indicative of her previous coronary artery disease and echo today shows normal LV function. Would recommend switching to eliquis and continue ASA, statin, nifedipine and coreg with plans to see her back in office next week to plan outpatient LHC. Home medication recommendations: Aspirin 81 mg daily Atorvastatin 40 mg daily Carvedilol 12.5 mg twice daily Lisinopril 40 mg twice daily Hydralazine 25 mg twice daily Eliquis 10 mg twice daily for 7 days then reduce to 5 mg twice daily thereafter. Follow-up in our office in 1 week to discuss plans for cardiac catheterization
[2025-11-28 08:00] VITALS: BP 189/98; PULSE 81; RESP 18; TEMP 36.7; O2SAT 96
[2025-11-28 08:24] LABS: Hemoglobin A1C 5.5 % (4.0-6.0)
[2025-11-28] MEDS: CARVEDILOL 12.5MG TABLET 12.5 MG PO (08:43)
[2025-11-28] MEDS: ESCITALOPRAM 10MG TABLET 10 MG PO (08:43)
[2025-11-28] MEDS: HYDRALAZINE HCL 25MG TABLET 25 MG PO (08:43)
[2025-11-28] MEDS: ASPIRIN EC 81MG TABLET 81 MG PO (08:43)
[2025-11-28] MEDS: ENOXAPARIN 120MG/0.8ML SYRINGE 120 MG SUBCUT (08:44)
[2025-11-28] MEDS: LISINOPRIL 20MG TABLET 40 MG PO (08:44)
--- NOTE | 2025-11-28 10:15 | CT_ITS ---
FINAL REPORT TECHNIQUE: Axial imaging of the chest is obtained after the administration of contrast. 3-D MIP reformatted images were also obtained and reviewed per PE protocol. CLINICAL HISTORY: DVT, elevated trop COMPARISON: 11/07/2025 FINDINGS: The pulmonary arteries are well filled. There is no evidence of pulmonary embolus. There is no aortic dissection. Heart size is normal. There is no mediastinal, hilar, or axillary lymphadenopathy. There is a subpleural 4 mm right upper lobe nodule on series 3, image 23 which is unchanged. The 3 mm right lower lobe nodule on series 3, image 50 is also unchanged. The lungs are otherwise clear. There is no pleural or pericardial effusion. Limited evaluation of the upper abdomen is without acute abnormality. The kidneys are incompletely imaged on this exam. No acute osseous abnormality. IMPRESSION: No evidence of pulmonary embolism or aortic dissection. Stable less than 5 mm pulmonary nodules. Reviewed, Interpreted and Dictated by Dianne Aguirre MD Transcribed by Adriana Carroll Authenticated and [facility]
--- NOTE | 2025-11-28 10:49 | CA_ITS ---
APPROVED REPORT EXAM: Limited 2D Echocardiogram Internal Medicine Specialist: Isi Patten RVT Ht: 5 ft 4 in Wt: 265lbs BSA: 2.20 BP: 110/61 mmHg Indications: EF CHECK,ELEVATED TROPONIN 2D Dimensions IVSd 1.60 cm F: 0.6-1.0 LVEF (Visual) 66.20 % PWd 1.11 cm F: 0.6 - 1.0 LVDd 5.09 cm F: 3.9 - 5.3 LVDs 3.08 cm F: 2.2 - 3.5 M-Mode Dimensions LA Diam 3.71 cm (1.9-4.0) Other Information Study Quality: Technically Difficult Conclusion This is a limited TTE to evaluate for biventricular systolic function. Limited windows are obtained. The left ventricle is normal in size. There is increased LV wall thickness. There is normal global LV systolic function. LVEF is 60%. The right ventricle is moderately dilated. There is mild reduction in RV systolic function. Electronically signed by : Nicole Antonio MD 11/28/2025 12:40:24
[2025-11-28] MEDS: 0.9 % SODIUM CHLORIDE 1000ML 500 ML 999 ML IV (10:54)
[2025-11-28] MEDS: IOPAMIDOL-370 (76%);100ML BOTTLE 85 ML IV (10:59)
[2025-11-28] MEDS: SODIUM CHLORIDE 0.9% 10ML SYR (RAD ONLY) 10 ML IV (10:59)
[2025-11-28] MEDS: 0.9 % SODIUM CHLORIDE 50 ML VIAL IV (10:59)
[2025-11-28 12:00] VITALS: BP 210/93; PULSE 69; RESP 17; TEMP 36.5; O2SAT 95
--- NOTE | 2025-11-28 12:36 | P.PN_ITS ---
Subjective *Date: 11/28/25 *Time: 12:36 Interval history: Patient is doing well, sitting on the side of the bed, interactive with exam. Patient was found to have DVT in left extremity. Swelling noted on exam. Patient denies pain at this time. Patient initial troponin <0.01 trending upw rocio to 0.04. Chest CTA obtained to assess for PE, no PE noted on report. Patient denies chest pain at this time but due to history of CAD and elevated troponin will need LHC prior to discharge. Patient is agreeable to this plan. Patient's normotensive overnight, continues to be hypertensive today, patient is also very anxious. Medical Exam Vital signs and Labs for Last 24 Hours: Vital Signs Temp Pulse Pulse Resp BP BP Pulse Ox 11/28/25 12:00 97.7 F 69 17 210/93 H 95 11/28/25 09:00 11/28/25 08:00 11/28/25 08:00 98.0 F 81 18 189/98 H 96 11/28/25 06:42 11/28/25 04:58 11/28/25 04:00 98.0 F 66 16 110/61 96 11/28/25 04:00 60 11/28/25 03:00 11/28/25 01:00 11/28/25 00:00 60 11/27/25 23:57 98.3 F 63 16 106/60 L 94 L 11/27/25 22:59 11/27/25 20:59 11/27/25 20:33 97.5 F L 76 20 199/97 H 98 11/27/25 20:21 98.2 F 86 18 221/113 H 11/27/25 20:00 95 H 11/27/25 18:48 11/27/25 15:41 98.2 F 86 18 221/113 H 97 O2 Del Method 11/28/25 12:00 Room Air 11/28/25 09:00 Room Air 11/28/25 08:00 Room Air 11/28/25 08:00 Room Air 11/28/25 06:42 Room Air 11/28/25 04:58 Room Air 11/28/25 04:00 Room Air 11/28/25 04:00 11/28/25 03:00 Room Air 11/28/25 01:00 Room Air 11/28/25 00:00 11/27/25 23:57 Room Air 11/27/25 22:59 Room Air 11/27/25 20:59 Room Air 11/27/25 20:33 Room Air 11/27/25 20:21 Room Air 11/27/25 20:00 11/27/25 18:48 Room Air 11/27/25 15:41 Room Air Intake and Output 11/27/25 11/28/25 11/28/25 23:59 07:59 15:59 Intake Total 300 / 800 500 / 800 Output Total 0 / 0 Balance 300 / 800 500 / 800 Intake: Intake, Oral Amount 300 / 300 Intake, Total IV Amount 500 / 500 0.9 % Sodium Chloride 1000ML 500 / 500 500 ml @ 999 mls/hr IV .Q31M ONE Rx#:[id number] Output: Output, Urine Amount 0 / 0 Other: Number of Unmeasured Voids 1 Weight 120.565 kg Patient Weight 11/28/25 23:59 Weight 120.565 kg Laboratory Results - last 24 hr 11/27/25 16:38: Urine Color Yellow, Urine Appearance Clear, Urine pH 6.5, Ur Specific [place] 1.010, Urine Protein Trace, Urine Glucose (UA) Negative, Urine Ketones Negative, Urine Blood Negative, Urine Nitrate Negative, Urine Bilirubin Negative, Urine Urobilinogen 0.2, Ur Leukocyte Esterase Negative, Urine RBC 5- 10, Urine WBC 5-10, Ur Squamous Epith Cells 20-50, Urine Bacteria 4+, Urine Yeast Occasional 11/27/25 17:00: WBC 8.8, RBC 4.44, Hgb 14.0, Hct 41.9, MCV 94.4, MCH 31.5 H, MCHC 33.4, RDW 12.8, Plt Count 168, MPV 9.1, Neut % (Auto) 67.9, Lymph % (Auto) 23.6, [place] % (Auto) 6.7, Eos % (Auto) 1.4, Baso % (Auto) 0.2, Neut # (Auto) 6.0, Lymph # (Auto) 2.1, [place] # (Auto) 0.6, Eos # (Auto) 0.1, Baso # (Auto) 0.0, PT 10.5, INR 0.94, D-Dimer 4.46 H, Sodium 137, Potassium 5.7 H, Chloride 104, Carbon Dioxide 26, Anion Gap 12.7, BUN 18 H, Creatinine 1.00, Estimated Creat Clear 40, Estimated GFR 53 L, Est GFR ( Amer) 64, Glucose 132 H, Calcium 9.5, Total Bilirubin 1.6 H, AST 48 H, ALT 20, Alkaline Phosphatase 57, Troponin I 0.01, NT-Pro-B Natriuret Pep 159, Total Protein 7.8, Albumin 4.9, Globulin 2.9, Albumin/Globulin Ratio 1.7, TSH 3.65 11/27/25 19:10: Troponin I 0.01 11/27/25 22:33: Troponin I 0.04 H 11/28/25 05:35: WBC 5.6 D, RBC 3.58 L, Hgb 11.4 L D, Hct 33.8 L, MCV 94.4, MCH 31.8 H, MCHC 33.7, RDW 12.8, Plt Count 134 L, MPV 9.5, Neut % (Auto) 59.3, Lymph % (Auto) 28.5, [place] % (Auto) 10.0 H, Eos % (Auto) 1.8, Baso % (Auto) 0.2, Neut # (Auto) 3.3, Lymph # (Auto) 1.6, [place] # (Auto) 0.6, Eos # (Auto) 0.1, Baso # (Auto) 0.0, Sodium 136, Potassium 4.0 D, Chloride 107, Carbon Dioxide 25, Anion Gap 8.0, BUN 23 H D, Creatinine 1.20 H, Estimated Creat Clear 32, Estimated GFR 43 L, Est GFR ( Amer) 52 L, Glucose 104 H D, Hemoglobin A1c 5.5, Calcium 9.0, Magnesium 2.2, Total Bilirubin 0.6, AST 22 D, ALT 13 D, Alkaline Phosphatase 64, Troponin I 0.04 H, Total Protein 5.5 L D, Albumin 3.6 D, Globulin 1.9, Albumin/Globulin Ratio 1.9 H I & O for Labs for Last 24 Hours: Intake & Output 11/25/25 11/26/25 11/27/25 11/28/25 23:59 23:59 23:59 23:59 Intake Total 800 / 800 Output Total 0 / 0 Balance 800 / 800 Weight 117.934 kg 120.565 kg Constitutional: Present no acute distress, morbidly obese, chronically ill appearing and cooperative Head: Present atraumatic Eyes: Present as per HPI ENT: Present normal exam Neck: Present normal inspection Respiratory: Present CTA bilaterally and normal respiratory effort Cardiac: Present Reg Rate and Rhythm GI: Present soft and normal bowel sounds; Absent distention or tenderness Rectal (female): Present deferred Extremities: Present full ROM, edema and calf tenderness (Left leg) Comment:: Left leg edema noted Skin: Present intact, dry and warm Neuro: Present alert, awake, oriented x 3 and moves all extremities Comment:: Anxious Assessment and Plan *Assessment and plan (1) Deep vein thrombosis, lower left extremity: Status: Acute Qualifiers: Chronicity: acute Qualified Code(s): I82.432 - Acute embolism and th rombosis of left popliteal vein Category: Medical Code(s): I82.402 - Acute embolism and thrombosis of unspecified deep veins of left lower extremity (2) Elevated troponin I level: Status: Acute Category: Medical Code(s): R79.89 - Other specified abnormal findings of blood chemistry (3) CAD (coronary artery disease): Status: Acute Qualifiers: Coronary Disease-Associated Artery/Lesion type: [place] artery [place] vs. transplanted heart: [place] heart Associated angina: with other forms of angina Qualified Code(s): I25.118 - Atherosclerotic heart disease of [place] coronary artery with other forms of angina pectoris Category: Medical Code(s): I25.10 - Atherosclerotic heart disease of [place] coronary artery without angina pectoris (4) HTN (hypertension): Status: Acute Qualifiers: Hypertension type: primary hypertension Qualified Code(s): I10 - Essential (primary) hypertension Category: Medical Code(s): I10 - Essential (primary) hypertension (5) Left bundle branch block (LBBB): Status: Acute Category: Medical Code(s): I44.7 - Left bundle-branch block, unspecified (6) Hyperlipidemia: Status: Acute Qualifiers: Hyperlipidemia type: mixed hyperlipidemia Qualified Code(s): E78.2 - Mixed hyperlipidemia Category: Medical Code(s): E78.5 - Hyperlipidemia, unspecified (7) Morbid obesity with BMI of 40.0-44.9, adult: Status: Chronic Category: Medical Code(s): E66.01 - Morbid (severe) obesity due to excess calories; Z68.41 - Body mass index [BMI] 40.0-44.9, adult Plan Ms. Rodriguez is a 79-year-old female who presented to the emergency department with complaints of swelling and pain in her left leg. Workup in the emergency department was significant for left leg popliteal and femoral DVTs. Additionally patient was hypertensive. Hospital medicine was consulted for admission for left leg DVT and hypertensive urgency. Plan of care as follows: #DVT, left lower extremity ?Patient was found to have left lower extremity popliteal and femoral DVT. This is a recurrent issue for her. Patient was initiated on therapeutic Lovenox twice daily, will transition to Eliquis DVT protocol pack at discharge. ?CTA of the chest was obtained to rule out PE, negative for PE or filling defect. #NSTEMI #Elevated troponin ? Patient initial troponin <0.01, trending upward to 0.04. Patient does deny chest pain. Limited echo shows no change from echo a few weeks ago. LVEF of 60%. Patient does have a history of CAD with prior stenting, currently takes aspirin 81 mg and carvedilol 12.5 mg twice daily. Patient will likely need a [facility] prior to discharge. Cardiology consulted and following for further recommendations. #Hypertensive urgency: Patient initially had high blood pressures on admission. Patient's blood pressures have stabilized. She is very anxious and I believe this contributes to her increased pressures. Patient takes a regimen of lisinopril 40 mg twice daily, Coreg 12.5 twice daily, and hydralazine 25 twice daily. Additionally added nifedipine 30 mg at bedtime for hypertension. Will continue to monitor during admission #ALEJANDRO: Patient had slight increase in her kidney function, creatinine 1.2. Patient received 500 mL bolus today. Encourage p.o. oral intake. #Anxiety, chronic: Patient is extremely anxious, tearful when discussing healthcare plan. Patient takes clonazepam 0.5 mg 3 times daily and escitalopram 10 mg daily. Continuing during admission. #Renal artery stenosis: Patient had renal duplex earlier this month showing less than 60% stenosis. #Hyperglycemia: Patient has intermittent elevated glucose, glucose 132 on admission. A1c WNL 5.5%. Is not treated for diabetes. #Hyperlipidemia: Lipid panel pending, last cholesterol elevated. Patient is not on statin therapy, consider at discharge. #Morbid obesity: Patient BMI 44, ambulates with cane. Lives independently. States she still works and drives. Discussed lifestyle modifications. Complicates all aspects of care. Full code Cardiac diet VTE?Lovenox Ambulate as tolerated
[2025-11-28 13:23] VITALS: BP 144/79
--- NOTE | 2025-11-28 15:18 | P.DS_ITS ---
<Statement entered by Horace Keller MD - 11/28/25 16:53> Rounded on patient after nurse practitioner. Personally examined and interviewed patient. Agree with exam findings and care plan as documented. General Admission date:: 11/27/25 Discharge date: 11/28/25 HPI HPI HPI: Amberly Rodriguez is an 79-year-old female with a past medical history significant for hypertension, hyperlipidemia, generalized anxiety disorder with chronic benzodiazepine therapy, obesity, CAD and diastolic dysfunction. Presents to [facility] due to left lower extremity pain and swelling. Patient reports noticing symptoms a few days ago and symptoms have since become worse. States prior to symptoms she was out with family running errands and ultimately waited in the car for about 7 hours without getting up/walking/standing. Also ED workup noted significantly elevated blood pressure (220 systolic). Patient reports anxiety at baseline and coming to the hospital has exacerbated symptoms. Of note patient was recently hospitalized with hypertensive urgency and discharged with BP medication adjustments. Patient states the new regime was then changed by her PCP as she was not tolerating the increased dose of Carvedilol. Patient currently reports taking Carvedilol 12.5 twice daily, Lisinopril 40 mg twice daily and Hydralazine 25 mg twice daily. States initial improvement with antihypertensive regime change. Noted systolic blood pressure in the 120 range and diastolic in the 80-70s. Reports BP increase after noticing left lower leg swelling and pain. She also endorsed recent stress-induced circumstances with family, states this has complicated her underlying anxiety. Reports compliance with home medication regimen, with exception of atorvastatin. States not taking statin by personal choice and noted furosemide was discontinued by her PCP with recent BP med adjustments. Denies chest pain, nausea, vomiting, abdominal pain, trauma, shortness of breath. Initial ED workup included laboratory studies and imaging. Significant laboratory finding D-dimer 4.46, potassium 5.7, GFR 53, total bilirubin 1.6, AST 48, UA with 4+ bacteria but noted squamous epithelial cells 20-50, leukocyte Estrace negative, nitrate negative. Imaging study included Doppler venous study which I personally reviewed, showing->DVT involving the distal femoral vein and popliteal vein. Chest x-ray I personally reviewed which was without any acute finding. Upon assessment of patient at bedside she is notably anxious, on room air, sitting on edge of bed. Reports anxiety improved since receiving home dose anxiety medication. Hospital Course Hospital Course Hospital Course: Ms. Rodriguez is a 79-year-old female who presented to the emergency department with complaints of swelling and pain in her left leg. Workup in the emergency department was significant for left leg popliteal and femoral DVT. Additionally patient was hypertensive. Hospital medicine was consulted for admission for left leg DVT and hypertensive urgency. Plan of care as follows: #DVT, left lower extremity ?Patient was found to have left lower extremity popliteal and femoral DVT. This is a recurrent issue for her. Patient was initiated on therapeutic Lovenox twice daily, positioned to [employer] DVT protocol pack at discharge. ?CTA of the chest was obtained to rule out PE, negative for PE or filling defect. #NSTEMI #Elevated troponin ? Patient initial troponin <0.01, trending upward to 0.04 x 2. Patient does deny chest pain, shortness of breath, chest pressure. Limited echo shows no change from echo a few weeks ago. LVEF of 60%. Patient does have a history of CAD with prior stenting, currently takes aspirin 81 mg and carvedilol 12.5 mg twice daily. Patient will likely need C in the near future, cardiology consulted recommends close outpatient follow-up. EKGs obtained showed no ischemia, cardiac telemetry reassuring. Heart score of 3. Low risk of a cardiac event. #Hypertensive urgency: Patient initially had high blood pressures on admission. Patient's blood pressures have stabilized. She is very anxious and I believe this contributes to her increased pressures. Patient takes a regimen of lisinopril 40 mg twice daily, Coreg 12.5 twice daily, and hydralazine 25 twice daily. Blood pressure at discharge 144/79. Discussed the importance of medication compliance at discharge. #ALEJANDRO: Patient had slight increase in her kidney function, creatinine 1.2. Patient received 500 mL bolus today. Encourage p.o. oral intake. #Anxiety, chronic: Patient is extremely anxious, tearful when discussing healthcare plan. Patient takes clonazepam 0.5 mg 3 times daily and escitalopram 10 mg daily. Discussed anxiety reduction measures, deep breathing, decrease stimulation, exercise #Renal artery stenosis: Patient had renal duplex earlier this month showing less than 60% stenosis. #Hyperglycemia: Patient has intermittent elevated glucose, glucose 132 on admission. A1c WNL 5.5%. Is not treated for diabetes. #Hyperlipidemia: Lipid panel pending, last cholesterol elevated. Patient on Lipitor 40 mg at bedtime. Will defer increase to cardiology pending lipid panel results. #Morbid obesity: Patient BMI 44, ambulates with cane. Lives independently. States she still works and drives. Discussed lifestyle modifications. Complicates all aspects of care. Total time spent on discharge 38 minutes in counseling, documentation, chart review, and direct care with patient. Exam Data for Last 24 hours Vital signs and Labs for Last 24 Hours: Temp Pulse Resp BP Pulse Ox O2 Del Method 97.7 F 69 17 144/79 H 95 Room Air 11/28/25 12:00 11/28/25 12:00 11/28/25 12:00 11/28/25 13:23 11/28/25 12:00 11/28/25 15:00 Laboratory Results - last 24 hr 11/27/25 16:38: Urine Color Yellow, Urine Appearance Clear, Urine pH 6.5, Ur S pecific [place] 1.010, Urine Protein Trace, Urine Glucose (UA) Negative, Urine Ketones Negative, Urine Blood Negative, Urine Nitrate Negative, Urine Bilirubin Negative, Urine Urobilinogen 0.2, Ur Leukocyte Esterase Negative, Urine RBC 5- 10, Urine WBC 5-10, Ur Squamous Epith Cells 20-50, Urine Bacteria 4+, Urine Yeast Occasional 11/27/25 17:00: WBC 8.8, RBC 4.44, Hgb 14.0, Hct 41.9, MCV 94.4, MCH 31.5 H, MCHC 33.4, RDW 12.8, Plt Count 168, MPV 9.1, Neut % (Auto) 67.9, Lymph % (Auto) 23.6, [place] % (Auto) 6.7, Eos % (Auto) 1.4, Baso % (Auto) 0.2, Neut # (Auto) 6.0, Lymph # (Auto) 2.1, [place] # (Auto) 0.6, Eos # (Auto) 0.1, Baso # (Auto) 0.0, PT 10.5, INR 0.94, D-Dimer 4.46 H, Sodium 137, Potassium 5.7 H, Chloride 104, Carbon Dioxide 26, Anion Gap 12.7, BUN 18 H, Creatinine 1.00, Estimated Creat Clear 40, Estimated GFR 53 L, Est GFR ( Amer) 64, Glucose 132 H, Calcium 9.5, Total Bilirubin 1.6 H, AST 48 H, ALT 20, Alkaline Phosphatase 57, Troponin I 0.01, NT-Pro-B Natriuret Pep 159, Total Protein 7.8, Albumin 4.9, Globulin 2.9, Albumin/Globulin Ratio 1.7, TSH 3.65 11/27/25 19:10: Troponin I 0.01 11/27/25 22:33: Troponin I 0.04 H 11/28/25 05:35: WBC 5.6 D, RBC 3.58 L, Hgb 11.4 L D, Hct 33.8 L, MCV 94.4, MCH 31.8 H, MCHC 33.7, RDW 12.8, Plt Count 134 L, MPV 9.5, Neut % (Auto) 59.3, Lymph % (Auto) 28.5, [place] % (Auto) 10.0 H, Eos % (Auto) 1.8, Baso % (Auto) 0.2, Neut # (Auto) 3.3, Lymph # (Auto) 1.6, [place] # (Auto) 0.6, Eos # (Auto) 0.1, Baso # (Auto) 0.0, Sodium 136, Potassium 4.0 D, Chloride 107, Carbon Dioxide 25, Anion Gap 8.0, BUN 23 H D, Creatinine 1.20 H, Estimated Creat Clear 32, Estimated GFR 43 L, Est GFR ( Amer) 52 L, Glucose 104 H D, Hemoglobin A1c 5.5, Calcium 9.0, Magnesium 2.2, Total Bilirubin 0.6, AST 22 D, ALT 13 D, Alkaline Phosphatase 64, Troponin I 0.04 H, Total Protein 5.5 L D, Albumin 3.6 D, Globulin 1.9, Albumin/Globulin Ratio 1.9 H I & O for Last 24 hours: Intake & Output 11/25/25 11/26/25 11/27/25 11/28/25 23:59 23:59 23:59 23:59 Intake Total 1040 / 1040 Output Total 0 / 0 Balance 1040 / 1040 Weight 117.934 kg 120.565 kg Constitutional Constitutional: no acute distress, morbidly obese, chronically ill appearing and cooperative *Routine HEENT Exam Head: Present normocephalic Eye: Present EOMI and PERRL ENT: Present mucous membranes moist *Routine Neck Exam Neck: Present supple and trachea midline; Absent lymphadenopathy *Routine Respiratory Exam Respiratory: Present CTA bilaterally, normal respiratory effort and symmetric chest movement *Routine Cardiovascular Exam Cardiovascular: Present RRR *Routine Abdominal Exam Abdominal: Present soft, normoactive bowel sounds and obese; Absent tenderness or distended *Routine Rectal Exam Patient deferred: visual exam *Routine Exam Patient deferred: external exam *Routine Extremities Exam Extremities: Present edema (Left lower leg) and calf tenderness (Left lower extremity); Absent cyanosis or clubbing *Routine Skin Exam Skin: Present intact, erythema (Left lower extremity), dry and warm; Absent rash *Routine Neurological Exam Neurological: Present alert, oriented X3, moving all extremities, vision grossly intact, hearing grossly intact and normal speech; Absent sensory deficit or motor deficit Routine Psychiatric Exam Psychiatric: Present normal affect, normal thought process, cooperative, good insight and good judgment Results Data Completed and Pending Labs on day of discharge: Labs from last 24 hours 11/28/25 11/27/25 11/27/25 05:35 22:33 19:10 WBC 5.6 D RBC 3.58 L Hgb 11.4 L D Hct 33.8 L MCV 94.4 MCH 31.8 H MCHC 33.7 RDW 12.8 Plt Count 134 L MPV 9.5 Neut % (Auto) 59.3 Lymph % (Auto) 28.5 [place] % (Auto) 10.0 H Eos % (Auto) 1.8 Baso % (Auto) 0.2 Neut # (Auto) 3.3 Lymph # (Auto) 1.6 [place] # (Auto) 0.6 Eos # (Auto) 0.1 Baso # (Auto) 0.0 PT INR D-Dimer Sodium 136 Potassium 4.0 D Chloride 107 Carbon Dioxide 25 Anion Gap 8.0 BUN 23 H D Creatinine 1.20 H Estimated Creat Clear 32 Estimated GFR 43 L Est GFR ( Amer) 52 L Glucose 104 H D Hemoglobin A1c 5.5 Calcium 9.0 Magnesium 2.2 Total Bilirubin 0.6 AST 22 D ALT 13 D Alkaline Phosphatase 64 Troponin I 0.04 H 0.04 H 0.01 NT-Pro-B Natriuret Pep Total Protein 5.5 L D Albumin 3.6 D Globulin 1.9 Albumin/Globulin Ratio 1.9 H TSH Urine Color Urine Appearance Urine pH Ur Specific [place] Urine Protein Urine Glucose (UA) Urine Ketones Urine Blood Urine Nitrate Urine Bilirubin Urine Urobilinogen Ur Leukocyte Esterase Urine RBC Urine WBC Ur Squamous Epith Cells Urine Bacteria Urine Yeast 11/27/25 11/27/25 17:00 16:38 WBC 8.8 RBC 4.44 Hgb 14.0 Hct 41.9 MCV 94.4 MCH 31.5 H MCHC 33.4 RDW 12.8 Plt Count 168 MPV 9.1 Neut % (Auto) 67.9 Lymph % (Auto) 23.6 [place] % (Auto) 6.7 Eos % (Auto) 1.4 Baso % (Auto) 0.2 Neut # (Auto) 6.0 Lymph # (Auto) 2.1 [place] # (Auto) 0.6 Eos # (Auto) 0.1 Baso # (Auto) 0.0 PT 10.5 INR 0.94 D-Dimer 4.46 H Sodium 137 Potassium 5.7 H Chloride 104 Carbon Dioxide 26 Anion Gap 12.7 BUN 18 H Creatinine 1.00 Estimated Creat Clear 40 Estimated GFR 53 L Est GFR ( Amer) 64 Glucose 132 H Hemoglobin A1c Calcium 9.5 Magnesium Total Bilirubin 1.6 H AST 48 H ALT 20 Alkaline Phosphatase 57 Troponin I 0.01 NT-Pro-B Natriuret Pep 159 Total Protein 7.8 Albumin 4.9 Globulin 2.9 Albumin/Globulin Ratio 1.7 TSH 3.65 Urine Color Yellow Urine Appearance Clear Urine pH 6.5 Ur Specific [place] 1.010 Urine Protein Trace Urine Glucose (UA) Negative Urine Ketones Negative Urine Blood Negative Urine Nitrate Negative Urine Bilirubin Negative Urine Urobilinogen 0.2 Ur Leukocyte Esterase Negative Urine RBC 5-10 Urine WBC 5-10 Ur Squamous Epith Cells 20-50 Urine Bacteria 4+ Urine Yeast Occasional DS: Diagnosis Discharge Diagnosis (1) Deep vein thrombosis, lower left extremity: Status: Acute Code(s): I82.402 - Acute embolism and thrombosis of unspecified deep veins of left lower extremity Qualifiers: Chronicity: acute Qualified Code(s): I82.432 - Acute embolism and thrombosis of left popliteal vein (2) Elevated troponin I level: Status: Acute Code(s): R79.89 - Other specified abnormal findings of blood chemistry (3) CAD (coronary artery disease): Status: Acute Code(s): I25.10 - Atherosclerotic heart disease of [place] coronary artery without angina pectoris Qualifiers: Coronary Disease-Associated Artery/Lesion type: [place] artery [place] vs. transplanted heart: [place] heart Associated angina: with other forms of angina Qualified Code(s): I25.118 - Atherosclerotic heart disease of [place] coronary artery with other forms of angina pectoris (4) HTN (hypertension): Status: Acute Code(s): I10 - Essential (primary) hypertension Qualifiers: Hypertension type: primary hypertension Qualified Code(s): I10 - Essential (primary) hypertension (5) Left bundle branch block (LBBB): Status: Acute Code(s): I44.7 - Left bundle-branch block, unspecified (6) Hyperlipidemia: Status: Acute Code(s): E78.5 - Hyperlipidemia, unspecified Qualifiers: Hyperlipidemia type: mixed hyperlipidemia Qualified Code(s): E78.2 - Mixed hyperlipidemia (7) Morbid obesity with BMI of 40.0-44.9, adult: Status: Chronic Code(s): E66.01 - Morbid (severe) obesity due to excess calories; Z68.41 - Body mass index [BMI] 40.0-44.9, adult Meds Home Medications and Allergies Home Medications ?Medication ?Instructions ?Recorded ?Confirmed ?Type clonazepam 0.5 mg tablet 0.5 mg PO TID 06/14/2211/27 History aspirin 81 mg tablet,delayed 81 mg PO DAILY 11/08/25 1 History release atorvastatin 40 mg tablet 40 mg PO HS 30 days #30 tabs 11/08/25 11/27/25 Rx carvedilol 25 mg tablet 12.5 mg PO BID 11/27/2510/31 History escitalopram oxalate 10 mg tablet 10 mg PO DAILY 11/2711/27/25 History hydralazine 25 mg tablet 25 mg PO BID 11/27/25 History lisinopril 20 mg tablet 40 mg PO BID Hypertension 11/27/25 History apixaban 5 mg (74 tabs) tablets in See Rx Instructions PO .COMPLEX 11/28/25 Rx a dose pack (Eliquis DVT-PE Treat #74 tabs 30D Start) New Prescriptions to Start Prescriptions: apixaban [Eliquis DVT-PE Treat 30D Start] Surekha Beckham Allergies Allergy/AdvReac Type Severity Reaction Status Date / Time ciprofloxacin Allergy Verified 10/25/23 14:01 Discharge Plan Disposition Patient Disposition: Home, Self-Care Condition: Fair Follow up Plan Follow up with: Tayla Jeter [Primary Care Provider, Medical] - Enter time for follow up Jeremiah Beckham PA [Physician Courtroom Reporter, Cardiology] - Enter time for follow up Prescriptions/Medication Reconciliation: New Eliquis DVT-PE Treat 30D Start 5 mg (74 tabs) tablets,dose pack See Rx Instructions .ROUTE .COMPLEX Qty: 74 0RF Rx Instructions: orally per package directions Continued aspirin 81 MG tablet,delayed release (DR/EC) 81 mg PO DAILY atorvastatin 40 mg Tablet 40 mg PO HS 30 Days Qty: 30 0RF clonazepam 0.5 MG tablet 0.5 mg PO TID hydralazine 25 mg tablet 25 mg PO BID escitalopram oxalate 10 mg tablet 10 mg PO DAILY carvedilol 25 mg tablet 12.5 mg PO BID Rx Instructions: patient primary physician changed script lisinopril 20 mg tablet 40 mg PO BID Rx Instructions: primary physician changed script Problem Reconciliation Problems Reviewed?: Yes Patient Discharge Instructions ACTIVITY: Continue current activity DIET: continue same diet Patient Instructions: DI for Deep Vein Thrombosis, DI for High Blood Pressure Print Language: Korean Providers Primary Care Provider: Tayla Jeter Admit Provider: Horace Keller Attending Provider: Horace Keller
--- NOTE | 2025-11-30 10:27 | SW/DCPLANNER ---
Spoke with patient on the phone. Patient stated that she is doing well. 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 Patient stated that she is aware of her upcoming appointments and that she has not called to schedule her follow up appointment with her primary care provider. Patient stated that she has no concerns or questions at this time. Chon Wise
== END 2025-11-28 16:34 | disposition home or self-care (01) ==
LOC: ER 17:24 → 2ND 18:48
PROVIDERS: Nurse Practitioner Acute Care; Physician Assistant; Admitting Provider Internal Medicine Adolescent Medicine; Emergency Provider Student in an Organized Health Care Education/Training Program; PCP Family Medicine; Visit Provider Internal Medicine Adolescent Medicine
DX: I82.402 Acute embolism and thrombosis of unspecified deep veins of left lower extremity (principal); R73.9 Hyperglycemia, unspecified; I82.432 Acute embolism and thrombosis of left popliteal vein; I16.0 Hypertensive urgency; F41.9 Anxiety disorder, unspecified; I11.9 Hypertensive heart disease without heart failure; I51.89 Other ill-defined heart diseases; I25.118 Atherosclerotic heart disease of native coronary artery with other forms of angina pectoris; I70.1 Atherosclerosis of renal artery; E66.01 Morbid (severe) obesity due to excess calories; I44.7 Left bundle-branch block, unspecified; E78.5 Hyperlipidemia, unspecified; N17.9 Acute kidney failure, unspecified; I45.4 Nonspecific intraventricular block; R91.1 Solitary pulmonary nodule; Z68.41 Body mass index [BMI] 40.0-44.9, adult; Z88.1 Allergy status to other antibiotic agents; Z79.01 Long term (current) use of anticoagulants; Z79.899 Other long term (current) drug therapy; Z79.82 Long term (current) use of aspirin
CPT/HCPCS: 71045; 71275; 80053; 81001; 83036; 83735; 83880; 84443; 84484; 85025; 85378; 85610; 87086; 93005; 93308; 93971; 96361; 96372; 96374; 96375; 99285; G0378; J1650; J2060; J7030; Q9967